=== PATIENT | male | born 1945 | race Two or more races ===

== ENCOUNTER 2021-03-10 00:15 | Inpatient (IN) | payer OTHER ==
[~2021-03-10] VITALS: Ht 180.3 cm; Wt 110.5 kg
[2021-03-10 01:58] LABS: Eosinophils # (auto) 0 10 ^3/uL (0-0.8); Lymphocytes # (auto) 1.2 10 ^3/uL (0.4-5.4)
[2021-03-10 02:00] LABS: Basophils # (auto) 0.1 10 ^3/uL (0-0.2); Basophils % (auto) 0.6 % (0.0-2.0); Eosinophils % (auto) 0.4 % (0.0-7.0); Hemoglobin 19.8 g/dL (13.5-17.5); Mean Corpuscular Hemoglobin 31.2 pg (28.0-32.0); Mean Corpuscular Volume 89.1 fL (80.0-100.0); Monocytes # (auto) 0.9 10 ^3/uL (0-1.3); Monocytes % (auto) 10.3 % (0.0-12.0); Neutrophils # (auto) 6.5 10 ^3/uL (1.6-8.6); Neutrophils % (auto) 74.7 % (37.0-80.0); Nucleated Red Blood Cells % 0.5 %; Red Blood Cells 6.33 10^6/uL (4.5-5.90); Red Cell Distribution Width 13.8 % (11.8-14.3); White Blood Cell 8.7 10^3/uL (4.4-10.8)
[2021-03-10 02:01] LABS: Hematocrit 56.5 % (41.0-53.0)
[2021-03-10 02:20] LABS: Urine Bacteria NONE SEEN /hpf (None Seen); Urine Blood 3+ /uL (Negative); Urine Specific Gravity 1.017 (1.001-1.035); Urine WBC 157 /hpf (0 - 3)
[2021-03-10 02:25] LABS: Albumin 3.9 g/dL (3.4-5.0); BUN/Creatinine Ratio 15.2; Calcium 9.1 mg/dL (8.5-10.1); Potassium 4.6 mmol/L (3.5-5.1)
[2021-03-10 02:27] LABS: Bilirubin, Total 1.2 mg/dL (0.2-1.0); Lactic Acid w/Reflex 3.4 mmol/L (0.4-2.0); Total Protein 7.8 g/dL (6.4-8.2)
[2021-03-10] MEDS ORDERED: SODIUM CHLORIDE 0.9% 3,400 ML IV ONE (03:45)
[2021-03-10] MEDS ORDERED: cefTRIAXone 1GM/50ML D5W 50 ML IV ONE (03:45)
[2021-03-10] MEDS ORDERED: ONDANSETRON HCL 4 MG/2 ML VIAL IV PRN (05:30)
[2021-03-10] MEDS ORDERED: LABETALOL HCL 5 MG/ML 4ML SYRINGE IV ONE (06:15)
[2021-03-10] MEDS: glipiZIDE 5 MG TAB PO SCH (07:08)
[2021-03-10] MEDS: metFORMIN HYDROCHLORIDE 500 MG TAB PO SCH ×2 (08:26→18:10)
[2021-03-10] MEDS: METOPROLOL TARTRATE 50 MG TAB PO SCH ×2 (09:44→21:41)
[2021-03-10] MEDS: PANTOPRAZOLE 40 MG TAB PO SCH (09:44)
[2021-03-10] MEDS: amLODIPine BESYLATE 5 MG TAB PO SCH (09:44)
[2021-03-10] MEDS: ENOXAPARIN SOD 40 MG/0.4 ML SYRINGE SC SCH (09:45)
[2021-03-10 13:00] VITALS: BP 159/100
[2021-03-10 13:01] VITALS: BP 159/96
[2021-03-10] MEDS ORDERED: METF-370 PO (14:16)
[2021-03-10] MEDS ORDERED: LOSA-39 PO (14:16)
[2021-03-10] MEDS ORDERED: CHOL20007 PO (14:16)
[2021-03-10] MEDS ORDERED: APIX5TAB PO (14:16)
[2021-03-10] MEDS ORDERED: FINA5TAB4 PO (14:16)
[2021-03-10] MEDS ORDERED: METO-158 PO (14:16)
[2021-03-10] MEDS ORDERED: ESCI-28 PO (14:16)
[2021-03-10] MEDS ORDERED: AMLO-489 PO (14:16)
[2021-03-10] MEDS ORDERED: ASPI-543 PO (14:16)
[2021-03-10 17:13] VITALS: BP 150/96
[2021-03-10] MEDS: cefTRIAXone 1GM/50ML D5W 50 ML IV SCH (21:40)
[2021-03-10] MEDS: ACETAMINOPHEN 325 MG TAB PO PRN (21:40)
[2021-03-10] MEDS: ATORVASTATIN 20 MG TAB PO SCH (21:40)
[2021-03-10 22:34] VITALS: BP 163/112
[2021-03-11 05:00] VITALS: BP 158/107
[2021-03-11] MEDS ORDERED: VANCOMYCIN PER PHARMACY 0 MG IV SCH (05:45)
[2021-03-11] MEDS ORDERED: VANCOMYCIN 1,500 MG in D5W 5% 250 ML IV ONE (05:45)
[2021-03-11 06:43] LABS: Basophils # (auto) 0.1 10 ^3/uL (0-0.2); Basophils % (auto) 0.4 % (0.0-2.0); Eosinophils # (auto) 0 10 ^3/uL (0-0.8); Eosinophils % (auto) 0.1 % (0.0-7.0); Hematocrit 51.6 % (41.0-53.0); Hemoglobin 17.5 g/dL (13.5-17.5); Lymphocytes # (auto) 1.4 10 ^3/uL (0.4-5.4); Lymphocytes % (auto) 11.2 % (10.0-50.0); Mean Corpuscular Hemoglobin 30.1 pg (28.0-32.0); Mean Corpuscular Volume 88.6 fL (80.0-100.0); Monocytes # (auto) 1.4 10 ^3/uL (0-1.3); Monocytes % (auto) 11.3 % (0.0-12.0); Neutrophils # (auto) 9.7 10 ^3/uL (1.6-8.6); Nucleated Red Blood Cells % 0.1 %; Red Blood Cells 5.82 10^6/uL (4.5-5.90); White Blood Cell 12.6 10^3/uL (4.4-10.8)
[2021-03-11] MEDS: glipiZIDE 5 MG TAB PO SCH (06:48)
[2021-03-11 07:10] LABS: Calcium 8.5 mg/dL (8.5-10.1); Potassium 3.5 mmol/L (3.5-5.1)
[2021-03-11 07:18] LABS: BUN/Creatinine Ratio 14.7
[2021-03-11] MEDS: ENOXAPARIN SOD 40 MG/0.4 ML SYRINGE SC SCH (07:53)
[2021-03-11] MEDS: METOPROLOL TARTRATE 50 MG TAB PO SCH (07:53)
[2021-03-11] MEDS: metFORMIN HYDROCHLORIDE 500 MG TAB PO SCH ×2 (07:53→18:24)
[2021-03-11] MEDS: amLODIPine BESYLATE 5 MG TAB PO SCH (07:54)
[2021-03-11] MEDS: PANTOPRAZOLE 40 MG TAB PO SCH (07:54)
[2021-03-11 09:00] VITALS: BP 136/92
[2021-03-11] MEDS: VANCOMYCIN 1GM/250ML 250 ML IV SCH (10:53)
[2021-03-11] MEDS: FINASTERIDE 5 MG TAB PO SCH (12:50)
[2021-03-11 13:00] VITALS: BP 157/106
[2021-03-11] MEDS ORDERED: FLEET ENEMA(ADULT) 135 ML PR ONE (13:15)
[2021-03-11 17:04] VITALS: BP 134/84
[2021-03-11] MEDS ORDERED: cloNIDine HCL 0.1 MG TAB PO PRN (17:45)
[2021-03-11] MEDS ORDERED: cloNIDine HCL 0.1 MG TAB PO SCH (22:00)
[2021-03-11 22:23] VITALS: BP 144/94
[2021-03-11] MEDS: APIXABAN 5 MG TAB PO SCH (23:59)
[2021-03-11] MEDS: cefTRIAXone 1GM/50ML D5W 50 ML IV SCH (23:59)
[2021-03-12] MEDS: METOPROLOL TARTRATE 50 MG TAB PO SCH ×3 (00:01→23:02)
[2021-03-12] MEDS: VANCOMYCIN 1GM/250ML 250 ML IV SCH ×2 (04:23→17:28)
[2021-03-12 05:33] VITALS: BP 140/94
[2021-03-12] MEDS: glipiZIDE 5 MG TAB PO SCH (06:18)
[2021-03-12 09:08] VITALS: BP 130/83
[2021-03-12] MEDS: metFORMIN HYDROCHLORIDE 500 MG TAB PO SCH ×2 (09:18→17:28)
[2021-03-12] MEDS: FINASTERIDE 5 MG TAB PO SCH (09:22)
[2021-03-12] MEDS: amLODIPine BESYLATE 5 MG TAB PO SCH (09:22)
[2021-03-12] MEDS: APIXABAN 5 MG TAB PO SCH ×2 (09:22→23:01)
[2021-03-12 11:07] LABS: Basophils # (auto) 0.1 10 ^3/uL (0-0.2); Basophils % (auto) 0.6 % (0.0-2.0); Eosinophils # (auto) 0.2 10 ^3/uL (0-0.8); Eosinophils % (auto) 2.3 % (0.0-7.0); Hematocrit 47.5 % (41.0-53.0); Hemoglobin 16.1 g/dL (13.5-17.5); Lymphocytes # (auto) 1.3 10 ^3/uL (0.4-5.4); Lymphocytes % (auto) 16.2 % (10.0-50.0); Mean Corpuscular Hemoglobin 30.2 pg (28.0-32.0); Mean Corpuscular Hgb Conc. 33.8 g/dL (32.0-36.0); Mean Corpuscular Volume 89.1 fL (80.0-100.0); Monocytes # (auto) 0.8 10 ^3/uL (0-1.3); Monocytes % (auto) 9.5 % (0.0-12.0); Neutrophils # (auto) 5.9 10 ^3/uL (1.6-8.6); Neutrophils % (auto) 71.4 % (37.0-80.0); Nucleated Red Blood Cells % 0.1 %; Red Blood Cells 5.33 10^6/uL (4.5-5.90); Red Cell Distribution Width 13.8 % (11.8-14.3); White Blood Cell 8.3 10^3/uL (4.4-10.8)
[2021-03-12 13:00] VITALS: BP 115/77
[2021-03-12 17:03] VITALS: BP 139/95
[2021-03-12 21:57] VITALS: BP 138/86
[2021-03-12] MEDS: cefTRIAXone 1GM/50ML D5W 50 ML IV SCH (23:00)
[2021-03-12] MEDS: ATORVASTATIN 20 MG TAB PO SCH ×2 (23:01)
[2021-03-12] MEDS: ACETAMINOPHEN 325 MG TAB PO PRN (23:03)
[2021-03-13 04:54] VITALS: BP 133/84
[2021-03-13] MEDS: glipiZIDE 5 MG TAB PO SCH (06:58)
[2021-03-13 08:39] LABS: Basophils # (auto) 0 10 ^3/uL (0-0.2); Basophils % (auto) 0.8 % (0.0-2.0); Eosinophils # (auto) 0.3 10 ^3/uL (0-0.8); Eosinophils % (auto) 4.8 % (0.0-7.0); Hematocrit 48.2 % (41.0-53.0); Hemoglobin 16.6 g/dL (13.5-17.5); Lymphocytes # (auto) 1.5 10 ^3/uL (0.4-5.4); Mean Corpuscular Hemoglobin 30.3 pg (28.0-32.0); Mean Corpuscular Hgb Conc. 34.3 g/dL (32.0-36.0); Mean Corpuscular Volume 88.2 fL (80.0-100.0); Monocytes # (auto) 0.7 10 ^3/uL (0-1.3); Monocytes % (auto) 10.7 % (0.0-12.0); Neutrophils # (auto) 3.6 10 ^3/uL (1.6-8.6); Neutrophils % (auto) 59.7 % (37.0-80.0); Nucleated Red Blood Cells % 0.1 %; Red Blood Cells 5.47 10^6/uL (4.5-5.90); Red Cell Distribution Width 13.6 % (11.8-14.3); White Blood Cell 6.1 10^3/uL (4.4-10.8)
[2021-03-13] MEDS: amLODIPine BESYLATE 5 MG TAB PO SCH (08:52)
[2021-03-13] MEDS: VANCOMYCIN 1GM/250ML 250 ML IV SCH ×3 (08:53→23:16)
[2021-03-13] MEDS: metFORMIN HYDROCHLORIDE 500 MG TAB PO SCH ×2 (08:53→18:34)
[2021-03-13] MEDS: FINASTERIDE 5 MG TAB PO SCH (08:53)
[2021-03-13] MEDS: APIXABAN 5 MG TAB PO SCH ×2 (08:53→23:14)
[2021-03-13] MEDS: METOPROLOL TARTRATE 50 MG TAB PO SCH ×2 (08:53→23:15)
[2021-03-13 09:00] VITALS: BP 148/97
[2021-03-13] MEDS ORDERED: ERTAPENEM SOD INJ 1 GM in SODIUM CHL 0.9% 50 ML IV ONE (10:30)
[2021-03-13 13:01] VITALS: BP 134/97
[2021-03-13 17:00] VITALS: BP 143/96
[2021-03-13 22:00] VITALS: BP 130/90
[2021-03-13] MEDS: ATORVASTATIN 20 MG TAB PO SCH (23:14)
[2021-03-14 05:00] VITALS: BP 135/87
[2021-03-14] MEDS: glipiZIDE 5 MG TAB PO SCH (06:15)
[2021-03-14 08:00] VITALS: BP 140/84
[2021-03-14] MEDS: ERTAPENEM SOD INJ 1 GM in SODIUM CHL 0.9% 50 ML IV SCH (09:24)
[2021-03-14] MEDS: APIXABAN 5 MG TAB PO SCH ×2 (09:25→22:54)
[2021-03-14] MEDS: amLODIPine BESYLATE 5 MG TAB PO SCH (09:25)
[2021-03-14] MEDS: FINASTERIDE 5 MG TAB PO SCH (09:26)
[2021-03-14] MEDS: metFORMIN HYDROCHLORIDE 500 MG TAB PO SCH ×2 (09:26→17:15)
[2021-03-14] MEDS: METOPROLOL TARTRATE 50 MG TAB PO SCH ×2 (09:26→22:53)
[2021-03-14] MEDS: VANCOMYCIN 1GM/250ML 250 ML IV SCH (12:43)
[2021-03-14 13:00] VITALS: BP 150/98
[2021-03-14 17:00] VITALS: BP 135/94
[2021-03-14] MEDS: TAMSULOSIN HYDROCHLORIDE 0.4 MG CAP PO SCH (17:15)
[2021-03-14 22:00] VITALS: BP 143/93
[2021-03-14] MEDS: ATORVASTATIN 20 MG TAB PO SCH (22:53)
[2021-03-15 05:00] VITALS: BP 143/102
[2021-03-15] MEDS: glipiZIDE 5 MG TAB PO SCH (06:45)
[2021-03-15 09:00] VITALS: BP 132/80
[2021-03-15] MEDS ORDERED: LACTULOSE 20Gm/30ML SOLN PO ONE (12:30)
[2021-03-15] MEDS: metFORMIN HYDROCHLORIDE 500 MG TAB PO SCH ×2 (12:56→17:25)
[2021-03-15] MEDS: APIXABAN 5 MG TAB PO SCH ×2 (12:57→20:45)
[2021-03-15] MEDS: ERTAPENEM SOD INJ 1 GM in SODIUM CHL 0.9% 50 ML IV SCH (12:57)
[2021-03-15] MEDS: METOPROLOL TARTRATE 50 MG TAB PO SCH ×2 (12:58→21:03)
[2021-03-15 13:00] VITALS: BP 125/78
[2021-03-15] MEDS: FINASTERIDE 5 MG TAB PO SCH (16:34)
[2021-03-15] MEDS: amLODIPine BESYLATE 5 MG TAB PO SCH (16:34)
[2021-03-15 16:42] VITALS: BP 135/97
[2021-03-15] MEDS: TAMSULOSIN HYDROCHLORIDE 0.4 MG CAP PO SCH (17:25)
[2021-03-15] MEDS: ATORVASTATIN 20 MG TAB PO SCH (20:46)
[2021-03-15] MEDS: ACETAMINOPHEN 325 MG TAB PO PRN (20:46)
[2021-03-15 22:00] VITALS: BP 142/104
[2021-03-15] MEDS ORDERED: TEMAZEPAM 15 MG CAP PO ONE (22:45)
[2021-03-16 05:00] VITALS: BP 133/85
[2021-03-16] MEDS: glipiZIDE 5 MG TAB PO SCH (06:51)
[2021-03-16 09:00] VITALS: BP 132/87
[2021-03-16] MEDS: metFORMIN HYDROCHLORIDE 500 MG TAB PO SCH ×2 (10:25→18:15)
[2021-03-16] MEDS: ERTAPENEM SOD INJ 1 GM in SODIUM CHL 0.9% 50 ML IV SCH (10:25)
[2021-03-16] MEDS: APIXABAN 5 MG TAB PO SCH ×2 (10:26→21:47)
[2021-03-16] MEDS: METOPROLOL TARTRATE 50 MG TAB PO SCH ×2 (10:26→21:47)
[2021-03-16] MEDS: amLODIPine BESYLATE 5 MG TAB PO SCH (10:27)
[2021-03-16] MEDS: FINASTERIDE 5 MG TAB PO SCH (10:27)
[2021-03-16 13:00] VITALS: BP 124/95
[2021-03-16 17:00] VITALS: BP 122/78
[2021-03-16] MEDS: TAMSULOSIN HYDROCHLORIDE 0.4 MG CAP PO SCH (18:15)
[2021-03-16] MEDS: ATORVASTATIN 20 MG TAB PO SCH (21:47)
[2021-03-16 22:00] VITALS: BP 162/110
[2021-03-16] MEDS: TEMAZEPAM 15 MG CAP PO PRN (22:45)
[2021-03-17 05:00] VITALS: BP 136/94
[2021-03-17] MEDS: glipiZIDE 5 MG TAB PO SCH (06:31)
[2021-03-17] MEDS: metFORMIN HYDROCHLORIDE 500 MG TAB PO SCH ×2 (08:50→18:20)
[2021-03-17 09:00] VITALS: BP 142/94
[2021-03-17] MEDS: METOPROLOL TARTRATE 50 MG TAB PO SCH ×2 (09:57→21:15)
[2021-03-17] MEDS: ERTAPENEM SOD INJ 1 GM in SODIUM CHL 0.9% 50 ML IV SCH (09:57)
[2021-03-17] MEDS: APIXABAN 5 MG TAB PO SCH ×2 (09:57→21:15)
[2021-03-17] MEDS: amLODIPine BESYLATE 5 MG TAB PO SCH (09:58)
[2021-03-17] MEDS: FINASTERIDE 5 MG TAB PO SCH (09:58)
[2021-03-17 13:00] VITALS: BP 112/73
[2021-03-17 17:00] VITALS: BP 119/77
[2021-03-17] MEDS: TAMSULOSIN HYDROCHLORIDE 0.4 MG CAP PO SCH (18:20)
[2021-03-17] MEDS: ATORVASTATIN 20 MG TAB PO SCH (21:15)
[2021-03-17] MEDS: TEMAZEPAM 15 MG CAP PO PRN (21:15)
[2021-03-17 22:00] VITALS: BP 137/93
[2021-03-18 05:00] VITALS: BP 120/85
[2021-03-18] MEDS: glipiZIDE 5 MG TAB PO SCH (06:24)
[2021-03-18] MEDS: amLODIPine BESYLATE 5 MG TAB PO SCH (08:45)
[2021-03-18] MEDS: METOPROLOL TARTRATE 50 MG TAB PO SCH ×2 (08:45→21:19)
[2021-03-18 09:00] VITALS: BP 125/87
[2021-03-18] MEDS: APIXABAN 5 MG TAB PO SCH ×2 (09:14→21:19)
[2021-03-18] MEDS: FINASTERIDE 5 MG TAB PO SCH (09:14)
[2021-03-18] MEDS: metFORMIN HYDROCHLORIDE 500 MG TAB PO SCH ×2 (09:15→18:52)
[2021-03-18] MEDS: ERTAPENEM SOD INJ 1 GM in SODIUM CHL 0.9% 50 ML IV SCH (09:15)
[2021-03-18 12:30] VITALS: BP 135/77
[2021-03-18 16:50] VITALS: BP 134/94
[2021-03-18] MEDS: TAMSULOSIN HYDROCHLORIDE 0.4 MG CAP PO SCH (18:52)
[2021-03-18 20:12] VITALS: BP 150/100
[2021-03-18] MEDS: ATORVASTATIN 20 MG TAB PO SCH (21:19)
[2021-03-18 22:39] VITALS: BP 143/84
[2021-03-19] MEDS: TEMAZEPAM 15 MG CAP PO PRN (01:01)
[2021-03-19] MEDS: glipiZIDE 5 MG TAB PO SCH (06:53)
[2021-03-19] MEDS: BISACODYL 10 MG RECT SUPP PR PRN (06:53)
[2021-03-19 07:04] VITALS: BP 132/90
[2021-03-19] MEDS: metFORMIN HYDROCHLORIDE 500 MG TAB PO SCH ×2 (08:10→17:58)
[2021-03-19 08:50] VITALS: BP 148/104
[2021-03-19] MEDS: ERTAPENEM SOD INJ 1 GM in SODIUM CHL 0.9% 50 ML IV SCH (10:43)
[2021-03-19] MEDS: FINASTERIDE 5 MG TAB PO SCH (10:44)
[2021-03-19] MEDS: amLODIPine BESYLATE 5 MG TAB PO SCH (10:44)
[2021-03-19] MEDS: APIXABAN 5 MG TAB PO SCH ×2 (10:44→22:18)
[2021-03-19] MEDS: METOPROLOL TARTRATE 50 MG TAB PO SCH ×2 (10:45→22:19)
[2021-03-19 12:30] VITALS: BP 149/95
[2021-03-19 16:51] VITALS: BP 151/99
[2021-03-19] MEDS: TAMSULOSIN HYDROCHLORIDE 0.4 MG CAP PO SCH (17:57)
[2021-03-19 22:00] VITALS: BP 117/80
[2021-03-19] MEDS: ATORVASTATIN 20 MG TAB PO SCH (22:18)
[2021-03-20 05:00] VITALS: BP 122/79
[2021-03-20] MEDS: glipiZIDE 5 MG TAB PO SCH (07:00)
[2021-03-20] MEDS: ERTAPENEM SOD INJ 1 GM in SODIUM CHL 0.9% 50 ML IV SCH (08:37)
[2021-03-20] MEDS: metFORMIN HYDROCHLORIDE 500 MG TAB PO SCH ×2 (08:37→17:57)
[2021-03-20] MEDS: FINASTERIDE 5 MG TAB PO SCH (08:38)
[2021-03-20] MEDS: APIXABAN 5 MG TAB PO SCH ×2 (08:38→22:52)
[2021-03-20] MEDS: METOPROLOL TARTRATE 50 MG TAB PO SCH ×2 (08:38→22:52)
[2021-03-20 09:08] VITALS: BP 106/72
[2021-03-20] MEDS: amLODIPine BESYLATE 5 MG TAB PO SCH (10:00)
[2021-03-20 12:30] VITALS: BP 106/74
[2021-03-20 17:29] VITALS: BP 113/84
[2021-03-20] MEDS: TAMSULOSIN HYDROCHLORIDE 0.4 MG CAP PO SCH (17:57)
[2021-03-20 22:00] VITALS: BP 109/70
[2021-03-20] MEDS: ATORVASTATIN 20 MG TAB PO SCH (22:52)
[2021-03-20] MEDS: TEMAZEPAM 15 MG CAP PO PRN (22:59)
[2021-03-21 05:00] VITALS: BP 112/76
[2021-03-21] MEDS: glipiZIDE 5 MG TAB PO SCH (07:29)
[2021-03-21 09:00] VITALS: BP 117/74
[2021-03-21] MEDS: metFORMIN HYDROCHLORIDE 500 MG TAB PO SCH ×2 (09:15→16:42)
[2021-03-21] MEDS: APIXABAN 5 MG TAB PO SCH ×2 (09:16→23:18)
[2021-03-21] MEDS: ERTAPENEM SOD INJ 1 GM in SODIUM CHL 0.9% 50 ML IV SCH (09:16)
[2021-03-21] MEDS: METOPROLOL TARTRATE 50 MG TAB PO SCH ×3 (09:17→23:18)
[2021-03-21] MEDS: amLODIPine BESYLATE 5 MG TAB PO SCH (09:17)
[2021-03-21] MEDS: FINASTERIDE 5 MG TAB PO SCH (09:18)
[2021-03-21] MEDS: TAMSULOSIN HYDROCHLORIDE 0.4 MG CAP PO SCH (09:19)
[2021-03-21 13:00] VITALS: BP 136/88
[2021-03-21 17:00] VITALS: BP 113/85
[2021-03-21 22:30] VITALS: BP 128/77
[2021-03-21] MEDS: ATORVASTATIN 20 MG TAB PO SCH (23:18)
[2021-03-21] MEDS: TEMAZEPAM 15 MG CAP PO PRN (23:19)
[2021-03-22 05:00] VITALS: BP 142/93
[2021-03-22] MEDS: glipiZIDE 5 MG TAB PO SCH (07:01)
[2021-03-22 08:00] VITALS: BP 137/82
[2021-03-22] MEDS: ERTAPENEM SOD INJ 1 GM in SODIUM CHL 0.9% 50 ML IV SCH (08:40)
[2021-03-22] MEDS: APIXABAN 5 MG TAB PO SCH ×2 (08:40→21:21)
[2021-03-22] MEDS: metFORMIN HYDROCHLORIDE 500 MG TAB PO SCH ×2 (08:40→16:58)
[2021-03-22] MEDS: METOPROLOL TARTRATE 50 MG TAB PO SCH ×2 (08:41→21:22)
[2021-03-22] MEDS: amLODIPine BESYLATE 5 MG TAB PO SCH (08:41)
[2021-03-22] MEDS: FINASTERIDE 5 MG TAB PO SCH (08:42)
[2021-03-22 13:30] VITALS: BP 138/90
[2021-03-22] MEDS: TAMSULOSIN HYDROCHLORIDE 0.4 MG CAP PO SCH (16:58)
[2021-03-22 16:59] VITALS: BP 136/93
[2021-03-22] MEDS: TEMAZEPAM 15 MG CAP PO PRN (21:20)
[2021-03-22] MEDS: ATORVASTATIN 20 MG TAB PO SCH (21:21)
[2021-03-22 22:00] VITALS: BP 138/90
[2021-03-23 05:22] VITALS: BP 104/73
[2021-03-23] MEDS: glipiZIDE 5 MG TAB PO SCH (06:52)
[2021-03-23] MEDS: metFORMIN HYDROCHLORIDE 500 MG TAB PO SCH ×2 (09:29→17:35)
[2021-03-23 09:30] VITALS: BP 141/85
[2021-03-23] MEDS: ERTAPENEM SOD INJ 1 GM in SODIUM CHL 0.9% 50 ML IV SCH (09:30)
[2021-03-23] MEDS: METOPROLOL TARTRATE 50 MG TAB PO SCH ×2 (09:31→21:46)
[2021-03-23] MEDS: APIXABAN 5 MG TAB PO SCH ×2 (09:31→21:45)
[2021-03-23] MEDS: amLODIPine BESYLATE 5 MG TAB PO SCH (09:32)
[2021-03-23] MEDS: FINASTERIDE 5 MG TAB PO SCH (09:32)
[2021-03-23 13:00] VITALS: BP 142/84
[2021-03-23 16:38] VITALS: BP 144/86
[2021-03-23] MEDS: TAMSULOSIN HYDROCHLORIDE 0.4 MG CAP PO SCH (17:35)
[2021-03-23] MEDS: ATORVASTATIN 20 MG TAB PO SCH (21:45)
[2021-03-23] MEDS: TEMAZEPAM 15 MG CAP PO PRN (21:46)
[2021-03-23 22:00] VITALS: BP 142/77
[2021-03-24 05:00] VITALS: BP 128/87
[2021-03-24] MEDS: glipiZIDE 5 MG TAB PO SCH (06:54)
[2021-03-24 08:00] VITALS: BP 122/94
[2021-03-24] MEDS: metFORMIN HYDROCHLORIDE 500 MG TAB PO SCH ×2 (09:12→18:02)
[2021-03-24] MEDS: APIXABAN 5 MG TAB PO SCH (09:51)
[2021-03-24] MEDS: ERTAPENEM SOD INJ 1 GM in SODIUM CHL 0.9% 50 ML IV SCH (09:51)
[2021-03-24] MEDS: METOPROLOL TARTRATE 50 MG TAB PO SCH (09:51)
[2021-03-24] MEDS: FINASTERIDE 5 MG TAB PO SCH (09:52)
[2021-03-24] MEDS: amLODIPine BESYLATE 5 MG TAB PO SCH (09:52)
[2021-03-24 12:00] VITALS: BP 143/97
[2021-03-24 16:25] VITALS: BP 136/93
[2021-03-24] MEDS: TAMSULOSIN HYDROCHLORIDE 0.4 MG CAP PO SCH (18:01)
[2021-03-24] MEDS: BISACODYL 10 MG RECT SUPP PR PRN (18:02)
== END 2021-03-24 19:12 | DRG 871 ==
LOC: EDBD 00:15 → ER 00:15 → OVERFLOW 05:26 → WEST WING 11:52
PROVIDERS: ADMIT Nurse Practitioner; ATTEND Family Medicine
PROC: 05HB33Z Insertion of Infusion Device into Right Basilic Vein, Percutaneous Approach (ICD-10-PCS; principal; 2021-03-15)
PROC: B54MZZA Ultrasonography of Right Upper Extremity Veins, Guidance (ICD-10-PCS; 2021-03-15)
DX: A41.9 Sepsis, unspecified organism (principal); G93.41 Metabolic encephalopathy; N17.9 Acute kidney failure, unspecified; N13.8 Other obstructive and reflux uropathy; D68.59 Other primary thrombophilia; N13.6 Pyonephrosis; I10 Essential (primary) hypertension; D75.1 Secondary polycythemia; Z20.822 Contact with and (suspected) exposure to COVID-19; K80.20 Calculus of gallbladder without cholecystitis without obstruction; N40.1 Benign prostatic hyperplasia with lower urinary tract symptoms; E11.9 Type 2 diabetes mellitus without complications; E78.5 Hyperlipidemia, unspecified; E78.00 Pure hypercholesterolemia, unspecified; N28.89 Other specified disorders of kidney and ureter; Z86.711 Personal history of pulmonary embolism; Z79.01 Long term (current) use of anticoagulants; Z86.718 Personal history of other venous thrombosis and embolism; Z87.440 Personal history of urinary (tract) infections; Z90.79 Acquired absence of other genital organ(s); Z79.899 Other long term (current) drug therapy; T83.021A Displacement of indwelling urethral catheter, initial encounter
CPT/HCPCS: 36415; 71045; 74176; 80048; 80053; 80202; 81001; 82565; 82962; 83605; 83880; 84154; 84484; 85025; 87040; 87077; 87086; 87088; 87186; 87426; 93005; 93306; 93970; 96365; 96372; 96375; 97110; 97116; 97162; 97530; G0378; J0696; J1335; J3490; J7060

== ENCOUNTER 2021-06-26 16:04 | Inpatient (IN) | payer OTHER ==
[~2021-06-26] VITALS: Ht 180.3 cm; Wt 104.7 kg
[~2021-06-26 16:04] MED LIST: AMLO-489 PO; APIX5TAB PO; ASPI-543 PO; CHOL20007 PO; ESCI-28 PO; FINA5TAB4 PO; LOSA-39 PO; METF-370 PO; METO-158 PO
[2021-06-26] MEDS ORDERED: SODIUM CHLORIDE 0.9% 1,000 ML IV ONE ×2 (16:30→17:30)
[2021-06-26] MEDS ORDERED: SODIUM CHLORIDE 0.9% 1,000 ML IVB ONE (16:30)
[2021-06-26] MEDS ORDERED: cefTRIAXone 1GM/50ML D5W 50 ML IV ONE (16:45)
[2021-06-26] MEDS ORDERED: ACETAMINOPHEN 325 MG TAB PO ONE (17:30)
[2021-06-26 17:40] LABS: Albumin 2.7 g/dL (3.4-5.0); BUN/Creatinine Ratio 22.5; Calcium 9.2 mg/dL (8.5-10.1); Potassium 3.6 mmol/L (3.5-5.1)
[2021-06-26 17:41] LABS: Basophils # (auto) 0 10 ^3/uL (0-0.2); Basophils % (auto) 0.2 % (0.0-2.0); Eosinophils # (auto) 0 10 ^3/uL (0-0.8); Hematocrit 47.4 % (41.0-53.0); Hemoglobin 15.9 g/dL (13.5-17.5); Lymphocytes # (auto) 1.2 10 ^3/uL (0.4-5.4); Mean Corpuscular Hgb Conc. 33.6 g/dL (32.0-36.0); Mean Corpuscular Volume 86.3 fL (80.0-100.0); Monocytes # (auto) 1.3 10 ^3/uL (0-1.3); Monocytes % (auto) 8.2 % (0.0-12.0); Neutrophils # (auto) 12.8 10 ^3/uL (1.6-8.6); Neutrophils % (auto) 83.6 % (37.0-80.0); Nucleated Red Blood Cells % 0.2 %; Red Blood Cells 5.49 10^6/uL (4.5-5.90); Red Cell Distribution Width 16.5 % (11.8-14.3); White Blood Cell 15.3 10^3/uL (4.4-10.8)
[2021-06-26 17:42] LABS: Bilirubin, Total 1.3 mg/dL (0.2-1.0); Total Protein 6.7 g/dL (6.4-8.2)
[2021-06-26 17:53] LABS: Urine Bacteria MOD /hpf (None Seen); Urine Blood TRACE /uL (Negative); Urine Budding Yeast MODERATE /hpf (None Seen); Urine Mucus FEW (None Seen); Urine Specific Gravity 1.029 (1.001-1.035); Urine WBC 113 /hpf (0 - 3)
[2021-06-26 17:58] LABS: INR 1.21 (0.9-1.15); Partial Thromboplastin Time 32.9 sec (23.6-33.0)
[2021-06-26] MEDS ORDERED: IOHEXOL 350 MG/ML 100ML IJ ONE (18:17)
[2021-06-26] MEDS ORDERED: dilTIAZem 125mg/125ml BAG KIT 125 ML IV SCH (20:30)
[2021-06-26] MEDS ORDERED: ALBUTEROL SULF 2.5 MG/0.5ML(0.5%) NEB SOLN NEB PRN (20:30)
[2021-06-26] MEDS ORDERED: DEXTROSE (50%) 50ML SYRG IV PRN (20:30)
[2021-06-26] MEDS ORDERED: dilTIAZem 25 MG/5 ML VIAL IV ONE (20:30)
[2021-06-26] MEDS ORDERED: SODIUM CHLORIDE 0.9% 250 ML IV ONE ×2 (20:45→21:00)
[2021-06-26] MEDS ORDERED: ACETAMINOPHEN 325 MG TAB PO PRN (20:45)
[2021-06-26] MEDS ORDERED: ONDANSETRON HCL 4 MG/2 ML VIAL IV PRN (20:45)
[2021-06-26] MEDS: dilTIAZem 125mg/125ml BAG KIT 100 ML IV SCH (20:56)
[2021-06-26 22:14] VITALS: BP 121/78
[2021-06-26] MEDS: InsuLIN REG 1unit/0.01ml Soln (100units/ml) SC SCH (22:43)
[2021-06-26] MEDS: ACCU-CHEK COMFORT CURVE STRIP VI SCH (22:43)
[2021-06-26] MEDS: APIXABAN 5 MG TAB PO SCH (22:53)
[2021-06-26] MEDS: METOPROLOL TARTRATE 50 MG TAB PO SCH (22:53)
[2021-06-27] MEDS: CEFEPIME 1 GM in SODIUM CHL 0.9% 50 ML IV SCH ×3 (00:34→14:14)
[2021-06-27] MEDS: PIPERACILLIN-TAZOB 3.375GM 100 ML IV SCH ×4 (02:03→22:47)
[2021-06-27] MEDS ORDERED: FLUCONAZOLE 200MG/100ML 100 ML IV ONE (02:30)
[2021-06-27 06:51] LABS: Basophils # (auto) 0.1 10 ^3/uL (0-0.2); Basophils % (auto) 0.4 % (0.0-2.0); Eosinophils # (auto) 0 10 ^3/uL (0-0.8); Hematocrit 43.2 % (41.0-53.0); Hemoglobin 14.5 g/dL (13.5-17.5); Lymphocytes # (auto) 1.4 10 ^3/uL (0.4-5.4); Lymphocytes % (auto) 8.1 % (10.0-50.0); Mean Corpuscular Hgb Conc. 33.5 g/dL (32.0-36.0); Mean Corpuscular Volume 86.4 fL (80.0-100.0); Monocytes # (auto) 1.3 10 ^3/uL (0-1.3); Monocytes % (auto) 7.4 % (0.0-12.0); Neutrophils # (auto) 14.2 10 ^3/uL (1.6-8.6); Neutrophils % (auto) 84.1 % (37.0-80.0); Red Blood Cells 4.99 10^6/uL (4.5-5.90); White Blood Cell 16.9 10^3/uL (4.4-10.8)
[2021-06-27] MEDS ORDERED: SODIUM CHLORIDE 0.9% 250 ML IV ONE (07:00)
[2021-06-27 07:09] LABS: Albumin 2.2 g/dL (3.4-5.0); BUN/Creatinine Ratio 22.7; Calcium 8.7 mg/dL (8.5-10.1); Potassium 3.7 mmol/L (3.5-5.1)
[2021-06-27 07:14] LABS: Bilirubin, Total 1.5 mg/dL (0.2-1.0)
[2021-06-27] MEDS: ACCU-CHEK COMFORT CURVE STRIP VI SCH ×4 (07:33→22:47)
[2021-06-27] MEDS: InsuLIN REG 1unit/0.01ml Soln (100units/ml) SC SCH ×4 (07:33→22:00)
[2021-06-27] MEDS: FAMOTIDINE 20 MG TAB PO SCH (09:15)
[2021-06-27] MEDS: FLUCONAZOLE 100 MG TAB PO SCH (09:15)
[2021-06-27] MEDS: METOPROLOL TARTRATE 50 MG TAB PO SCH ×2 (09:15→22:00)
[2021-06-27] MEDS: APIXABAN 5 MG TAB PO SCH (09:15)
[2021-06-27] MEDS: ASPirin-EC 81 mg tab PO SCH (09:15)
[2021-06-27] MEDS: MORPHINE SULFATE 4 MG/ML SYR/VIAL IV PRN ×2 (11:10→17:09)
[2021-06-27] MEDS ORDERED: FUROSEMIDE 20 MG/2 ML VIAL IV ONE (11:45)
[2021-06-27] MEDS ORDERED: AMIODARONE HCL 200 MG TAB PO ONE (11:45)
[2021-06-27] MEDS: dilTIAZem 125mg/125ml BAG KIT 100 ML IV SCH (16:45)
[2021-06-27] MEDS ORDERED: DIGOXIN (250MCG/ML) 2 ML AMPULE IV ONE (17:15)
[2021-06-27] MEDS: FUROSEMIDE 20 MG/2 ML VIAL IV SCH (18:00)
[2021-06-27] MEDS: DIGOXIN (250MCG/ML) 2 ML AMPULE IV SCH (18:15)
[2021-06-27 22:00] VITALS: BP 110/68
[2021-06-27] MEDS: AMIODARONE HCL 200 MG TAB PO SCH (22:00)
[2021-06-28] MEDS: DIGOXIN (250MCG/ML) 2 ML AMPULE IV SCH ×2 (00:52→06:42)
[2021-06-28 04:00] VITALS: BP 110/73
[2021-06-28] MEDS: PIPERACILLIN-TAZOB 3.375GM 100 ML IV SCH ×3 (06:41→22:21)
[2021-06-28] MEDS: FUROSEMIDE 20 MG/2 ML VIAL IV SCH ×2 (06:41→18:41)
[2021-06-28 06:42] LABS: Basophils # (auto) 0.1 10 ^3/uL (0-0.2); Basophils % (auto) 0.4 % (0.0-2.0); Eosinophils # (auto) 0 10 ^3/uL (0-0.8); Eosinophils % (auto) 0.1 % (0.0-7.0); Hematocrit 39.5 % (41.0-53.0); Hemoglobin 13.4 g/dL (13.5-17.5); Lymphocytes # (auto) 1.2 10 ^3/uL (0.4-5.4); Lymphocytes % (auto) 8.4 % (10.0-50.0); Mean Corpuscular Hemoglobin 29.3 pg (28.0-32.0); Mean Corpuscular Hgb Conc. 33.8 g/dL (32.0-36.0); Mean Corpuscular Volume 86.8 fL (80.0-100.0); Monocytes # (auto) 1.1 10 ^3/uL (0-1.3); Monocytes % (auto) 7.3 % (0.0-12.0); Neutrophils # (auto) 12.3 10 ^3/uL (1.6-8.6); Neutrophils % (auto) 83.8 % (37.0-80.0); Red Blood Cells 4.55 10^6/uL (4.5-5.90); White Blood Cell 14.7 10^3/uL (4.4-10.8)
[2021-06-28] MEDS: ACCU-CHEK COMFORT CURVE STRIP VI SCH ×4 (06:42→22:22)
[2021-06-28] MEDS: InsuLIN REG 1unit/0.01ml Soln (100units/ml) SC SCH ×4 (06:42→22:21)
[2021-06-28 07:16] LABS: Potassium 3.5 mmol/L (3.5-5.1)
[2021-06-28 07:27] LABS: BUN/Creatinine Ratio 27.7; Bilirubin, Total 1.1 mg/dL (0.2-1.0); Total Protein 6.1 g/dL (6.4-8.2)
[2021-06-28 08:56] VITALS: BP 116/68
[2021-06-28] MEDS ORDERED: GLIP5TAB12 PO (09:59)
[2021-06-28] MEDS ORDERED: COEN100C15 PO ×2 (09:59)
[2021-06-28] MEDS ORDERED: VITA180C PO (09:59)
[2021-06-28] MEDS ORDERED: AMLO-496 PO (09:59)
[2021-06-28] MEDS ORDERED: DULA0.5I SC (09:59)
[2021-06-28] MEDS ORDERED: LATA0.0019 EACHEYE (09:59)
[2021-06-28] MEDS ORDERED: CHOL500021 OR (09:59)
[2021-06-28] MEDS ORDERED: ATOR20TA50 PO (09:59)
[2021-06-28] MEDS ORDERED: CANA100T PO (09:59)
[2021-06-28] MEDS ORDERED: ENOXAPARIN SOD 40 MG/0.4 ML SYRINGE SC SCH (10:00)
[2021-06-28] MEDS: AMIODARONE HCL 200 MG TAB PO SCH ×2 (10:28→22:21)
[2021-06-28] MEDS: FLUCONAZOLE 100 MG TAB PO SCH (10:29)
[2021-06-28] MEDS: FAMOTIDINE 20 MG TAB PO SCH (10:29)
[2021-06-28] MEDS: METOPROLOL TARTRATE 50 MG TAB PO SCH ×2 (10:29→22:22)
[2021-06-28] MEDS: ASPirin-EC 81 mg tab PO SCH (10:29)
[2021-06-28] MEDS ORDERED: DIGOXIN (250MCG/ML) 2 ML AMPULE IV ONE (11:15)
[2021-06-28] MEDS ORDERED: POTASSIUM CHL 20 Meq TABLET PO ONE (11:15)
[2021-06-28 13:00] VITALS: BP 120/68
[2021-06-28] MEDS ORDERED: DIGOXIN 0.125 MG TAB PO SCH (15:00)
[2021-06-28 17:00] VITALS: BP 109/73
[2021-06-28] MEDS: D5W/SOD CHL 0.45%/KCL 20MEQ 1,000 ML IV SCH (18:40)
[2021-06-28 22:00] VITALS: BP 106/52
[2021-06-29] VITALS (49 sets, daily range): BP systolic 106–249; BP diastolic 53–235
[2021-06-29] MEDS: D5W/SOD CHL 0.45%/KCL 20MEQ 1,000 ML IV SCH (05:05)
[2021-06-29] MEDS: FUROSEMIDE 20 MG/2 ML VIAL IV SCH (06:01)
[2021-06-29] MEDS: ACCU-CHEK COMFORT CURVE STRIP VI SCH ×2 (06:02→17:34)
[2021-06-29] MEDS: InsuLIN REG 1unit/0.01ml Soln (100units/ml) SC SCH ×2 (06:11→17:33)
[2021-06-29] MEDS: PIPERACILLIN-TAZOB 3.375GM 100 ML IV SCH ×3 (06:12→23:11)
[2021-06-29 06:51] LABS: Basophils # (auto) 0 10 ^3/uL (0-0.2); Basophils % (auto) 0.3 % (0.0-2.0); Eosinophils # (auto) 0.1 10 ^3/uL (0-0.8); Eosinophils % (auto) 0.4 % (0.0-7.0); Hematocrit 41.1 % (41.0-53.0); Hemoglobin 13.7 g/dL (13.5-17.5); Lymphocytes # (auto) 0.9 10 ^3/uL (0.4-5.4); Lymphocytes % (auto) 6.9 % (10.0-50.0); Mean Corpuscular Hemoglobin 28.9 pg (28.0-32.0); Mean Corpuscular Hgb Conc. 33.2 g/dL (32.0-36.0); Mean Corpuscular Volume 86.8 fL (80.0-100.0); Monocytes % (auto) 7.7 % (0.0-12.0); Neutrophils # (auto) 11.5 10 ^3/uL (1.6-8.6); Neutrophils % (auto) 84.7 % (37.0-80.0); Red Blood Cells 4.74 10^6/uL (4.5-5.90); Red Cell Distribution Width 16.8 % (11.8-14.3); White Blood Cell 13.6 10^3/uL (4.4-10.8)
[2021-06-29 07:05] LABS: Potassium 3.3 mmol/L (3.5-5.1)
[2021-06-29 07:20] LABS: BUN/Creatinine Ratio 24.5; Calcium 9.2 mg/dL (8.5-10.1); Total Protein 6.6 g/dL (6.4-8.2)
[2021-06-29 07:23] LABS: INR 1.16 (0.9-1.15)
[2021-06-29] MEDS ORDERED: BUPIVACAINE W/ EPINEPH 0.25% INJ 50ML MDV ONE (09:16)
[2021-06-29] MEDS ORDERED: SUCCINYLCHOLINE CHLORIDE 20 MG/ML 10ML VIAL IV ONE (09:44)
[2021-06-29] MEDS ORDERED: POTASSIUM CHL 20 Meq TABLET PO ONE (09:45)
[2021-06-29] MEDS ORDERED: MIDAZOLAM HCL 2MG/2ML 2ml VIAL (1mg/ml) ONE ×3 (09:48→11:06)
[2021-06-29] MEDS ORDERED: HYDROmorphone HCL 2 MG/ML VL ONE ×2 (09:48→11:06)
[2021-06-29] MEDS ORDERED: ROCURONIUM 10MG/ML 10ML VIAL IV ONE (09:48)
[2021-06-29] MEDS ORDERED: fentaNYL CITRATE 100 MCG/2 ML VL ONE ×3 (09:48→11:34)
[2021-06-29] MEDS ORDERED: SODIUM CHLORIDE LOCK 10 ML ONE (09:51)
[2021-06-29] MEDS ORDERED: ETOMIDATE (2MG/ML) 20ML VIAL IV ONE (09:51)
[2021-06-29] MEDS ORDERED: ONDANSETRON HCL 4 MG/2 ML VIAL ONE (09:51)
[2021-06-29] MEDS: AMIODARONE HCL 200 MG TAB PO SCH (10:00)
[2021-06-29] MEDS ORDERED: DIGOXIN 0.125 MG TAB PO SCH (10:00)
[2021-06-29] MEDS ORDERED: METOPROLOL TARTRATE 1MG/1ML-5ML VIAL IV ONE (10:08)
[2021-06-29] MEDS ORDERED: NOREPINEPHRINE 8 MG/250ML KIT 250 ML IV ONE (11:00)
[2021-06-29] MEDS ORDERED: ALBUMIN 5% 500 ML IV ONE (11:31)
[2021-06-29] MEDS ORDERED: ALBUTEROL SULF 2.5 MG/0.5ML(0.5%) NEB SOLN NEB SCH (11:42)
[2021-06-29] MEDS ORDERED: LORazepam 2MG/ML-1ML VIAL IV PRN (11:45)
[2021-06-29] MEDS ORDERED: MORPHINE SULFATE 4 MG/ML SYR/VIAL IV PRN (12:15)
[2021-06-29] MEDS ORDERED: ACCU-CHEK COMFORT CURVE STRIP VI ONE (12:15)
[2021-06-29] MEDS ORDERED: HYDROmorphone HCL 2 MG/ML VL IV PRN (12:15)
[2021-06-29] MEDS ORDERED: ONDANSETRON HCL 4 MG/2 ML VIAL IV PRN (12:15)
[2021-06-29 14:32] LABS: Basophils # (auto) 0.1 10 ^3/uL (0-0.2); Basophils % (auto) 0.3 % (0.0-2.0); Eosinophils # (auto) 0 10 ^3/uL (0-0.8); Eosinophils % (auto) 0.1 % (0.0-7.0); Hematocrit 41.6 % (41.0-53.0); Hemoglobin 13.7 g/dL (13.5-17.5); Lymphocytes # (auto) 1.2 10 ^3/uL (0.4-5.4); Lymphocytes % (auto) 5.9 % (10.0-50.0); Mean Corpuscular Hemoglobin 28.8 pg (28.0-32.0); Mean Corpuscular Hgb Conc. 32.8 g/dL (32.0-36.0); Mean Corpuscular Volume 87.7 fL (80.0-100.0); Monocytes # (auto) 0.7 10 ^3/uL (0-1.3); Monocytes % (auto) 3.5 % (0.0-12.0); Neutrophils # (auto) 18.4 10 ^3/uL (1.6-8.6); Neutrophils % (auto) 90.2 % (37.0-80.0); Red Blood Cells 4.75 10^6/uL (4.5-5.90); Red Cell Distribution Width 15.8 % (11.8-14.3); White Blood Cell 20.4 10^3/uL (4.4-10.8)
[2021-06-29] MEDS ORDERED: SODIUM CHLORIDE 0.9% 1,000 ML IV SCH (14:45)
[2021-06-29] MEDS ORDERED: DEXTROSE (50%) 50ML SYRG IV PRN (14:45)
[2021-06-29] MEDS: fentaNYL Drip 2500mCg/250mlNS 250 ML IV SCH (14:45)
[2021-06-29] MEDS ORDERED: SODIUM CHLORIDE 0.9% 1,000 ML IV ONE (14:45)
[2021-06-29 14:51] LABS: INR 1.23 (0.9-1.15); Partial Thromboplastin Time 35.9 sec (23.6-33.0)
[2021-06-29] MEDS: NOREPINEPHRINE 8 MG/250ML KIT 250 ML IV SCH (15:36)
[2021-06-29] MEDS: SODIUM BICARBONATE 50ML VIAL 50 ML in SOD CHL 0.45% 1,000 ML IV SCH (16:30)
[2021-06-29] MEDS ORDERED: AMIODARONE 450mg/250ml AE 250 ML IV SCH (16:30)
[2021-06-29] MEDS: MAGNESIUM SULFATE 1GM/100ML 100 ML IV SCH ×2 (16:57→17:15)
[2021-06-29] MEDS: LINEZOLID 600MG/300ML 300 ML IV SCH (21:16)
[2021-06-29] MEDS: SODIUM CHLOR 0.9% PF (SALINE LOCK) 10ML VIAL/SYR IV SCH (21:49)
[2021-06-30] VITALS (62 sets, daily range): BP systolic 92–145; BP diastolic 57–84
[2021-06-30] MEDS: ACCU-CHEK COMFORT CURVE STRIP VI SCH ×4 (00:43→18:10)
[2021-06-30] MEDS: InsuLIN REG 1unit/0.01ml Soln (100units/ml) SC SCH ×4 (00:44→18:09)
[2021-06-30] MEDS: AMIODARONE 450mg/250ml AE 250 ML IV SCH ×3 (00:47→20:30)
[2021-06-30] MEDS: SODIUM BICARBONATE 50ML VIAL 50 ML in SOD CHL 0.45% 1,000 ML IV SCH ×2 (03:02→12:01)
[2021-06-30] MEDS ORDERED: SODIUM CHLORIDE 0.9 % NEB SOLN 3ML NEB ONE (05:21)
[2021-06-30 05:23] LABS: Basophils # (auto) 0 10 ^3/uL (0-0.2); Basophils % (auto) 0.5 % (0.0-2.0); Eosinophils # (auto) 0 10 ^3/uL (0-0.8); Hematocrit 36.6 % (41.0-53.0); Hemoglobin 12.5 g/dL (13.5-17.5); Lymphocytes # (auto) 0.9 10 ^3/uL (0.4-5.4); Lymphocytes % (auto) 8.2 % (10.0-50.0); Mean Corpuscular Hgb Conc. 34.1 g/dL (32.0-36.0); Monocytes # (auto) 0.5 10 ^3/uL (0-1.3); Monocytes % (auto) 4.8 % (0.0-12.0); Neutrophils # (auto) 9.5 10 ^3/uL (1.6-8.6); Neutrophils % (auto) 86.5 % (37.0-80.0); Red Cell Distribution Width 15.7 % (11.8-14.3)
[2021-06-30 05:47] LABS: Potassium 3.3 mmol/L (3.5-5.1)
[2021-06-30 05:54] LABS: Albumin 1.9 g/dL (3.4-5.0); BUN/Creatinine Ratio 31.7; Bilirubin, Total 0.9 mg/dL (0.2-1.0); Calcium 8.5 mg/dL (8.5-10.1); Total Protein 5.5 g/dL (6.4-8.2)
[2021-06-30] MEDS: PIPERACILLIN-TAZOB 3.375GM 100 ML IV SCH ×2 (06:54→18:08)
[2021-06-30] MEDS: POTASSIUM CHL 20MEQ/100ML 100 ML IV SCH ×3 (08:01→12:44)
[2021-06-30] MEDS: MIDAZOLAM DRIP 50 mg/50mL 50 ML IV SCH (08:32)
[2021-06-30] MEDS: NOREPINEPHRINE 8 MG/250ML KIT 250 ML IV SCH (08:33)
[2021-06-30] MEDS: FAMOTIDINE (10MG/ML) 2ML VL IV SCH (10:00)
[2021-06-30] MEDS: LINEZOLID 600MG/300ML 300 ML IV SCH ×2 (10:00→21:58)
[2021-06-30] MEDS: SODIUM CHLOR 0.9% PF (SALINE LOCK) 10ML VIAL/SYR IV SCH ×2 (10:00→21:57)
[2021-06-30] MEDS ORDERED: DEXTROSE (50%) 50ML SYRG IV PRN (10:15)
[2021-06-30] MEDS: fentaNYL Drip 2500mCg/250mlNS 250 ML IV SCH (14:45)
[2021-07-01] VITALS (106 sets, daily range): BP systolic 96–190; BP diastolic 54–101
[2021-07-01] MEDS: ACCU-CHEK COMFORT CURVE STRIP VI SCH ×4 (01:11→17:09)
[2021-07-01] MEDS: MIDAZOLAM DRIP 50 mg/50mL 50 ML IV SCH ×2 (01:11→11:45)
[2021-07-01] MEDS: InsuLIN REG 1unit/0.01ml Soln (100units/ml) SC SCH ×4 (01:12→17:08)
[2021-07-01] MEDS: PIPERACILLIN-TAZOB 3.375GM 100 ML IV SCH ×3 (02:09→17:19)
[2021-07-01 05:43] LABS: Basophils # (auto) 0 10 ^3/uL (0-0.2); Basophils % (auto) 0.1 % (0.0-2.0); Eosinophils # (auto) 0 10 ^3/uL (0-0.8); Eosinophils % (auto) 0.1 % (0.0-7.0); Hematocrit 33.2 % (41.0-53.0); Hemoglobin 11.2 g/dL (13.5-17.5); Lymphocytes # (auto) 1.2 10 ^3/uL (0.4-5.4); Lymphocytes % (auto) 14.4 % (10.0-50.0); Mean Corpuscular Hemoglobin 28.7 pg (28.0-32.0); Mean Corpuscular Hgb Conc. 33.8 g/dL (32.0-36.0); Mean Corpuscular Volume 84.9 fL (80.0-100.0); Monocytes # (auto) 0.6 10 ^3/uL (0-1.3); Monocytes % (auto) 6.6 % (0.0-12.0); Neutrophils # (auto) 6.7 10 ^3/uL (1.6-8.6); Neutrophils % (auto) 78.8 % (37.0-80.0); Nucleated Red Blood Cells % 0.1 %; Red Blood Cells 3.91 10^6/uL (4.5-5.90); Red Cell Distribution Width 15.8 % (11.8-14.3); White Blood Cell 8.5 10^3/uL (4.4-10.8)
[2021-07-01] MEDS ORDERED: ALBUTEROL SULF 2.5 MG/0.5ML(0.5%) NEB SOLN NEB PRN (05:45)
[2021-07-01 06:06] LABS: Albumin 1.7 g/dL (3.4-5.0); Calcium 8.3 mg/dL (8.5-10.1); Potassium 3.6 mmol/L (3.5-5.1)
[2021-07-01 06:08] LABS: BUN/Creatinine Ratio 33.3
[2021-07-01 06:11] LABS: Bilirubin, Total 0.4 mg/dL (0.2-1.0)
[2021-07-01] MEDS: AMIODARONE 450mg/250ml AE 250 ML IV SCH ×3 (07:28→21:43)
[2021-07-01] MEDS: SODIUM BICARBONATE 50ML VIAL 50 ML in SOD CHL 0.45% 1,000 ML IV SCH ×2 (07:32→14:15)
[2021-07-01] MEDS: fentaNYL Drip 2500mCg/250mlNS 250 ML IV SCH (08:36)
[2021-07-01] MEDS: SODIUM CHLOR 0.9% PF (SALINE LOCK) 10ML VIAL/SYR IV SCH ×2 (09:02→21:43)
[2021-07-01] MEDS: FAMOTIDINE (10MG/ML) 2ML VL IV SCH (09:02)
[2021-07-01] MEDS: LINEZOLID 600MG/300ML 300 ML IV SCH ×2 (09:02→22:12)
[2021-07-01] MEDS: NOREPINEPHRINE 8 MG/250ML KIT 250 ML IV SCH (14:34)
[2021-07-02] VITALS (100 sets, daily range): BP systolic 88–177; BP diastolic 48–102
[2021-07-02] MEDS: InsuLIN REG 1unit/0.01ml Soln (100units/ml) SC SCH ×4 (00:28→17:19)
[2021-07-02] MEDS: ACCU-CHEK COMFORT CURVE STRIP VI SCH ×4 (00:30→17:19)
[2021-07-02] MEDS: SODIUM BICARBONATE 50ML VIAL 50 ML in SOD CHL 0.45% 1,000 ML IV SCH ×2 (00:31→15:12)
[2021-07-02] MEDS: PIPERACILLIN-TAZOB 3.375GM 100 ML IV SCH ×3 (02:01→17:20)
[2021-07-02 06:39] LABS: BUN/Creatinine Ratio 33.7; Basophils # (auto) 0 10 ^3/uL (0-0.2); Basophils % (auto) 0.4 % (0.0-2.0); Calcium 8.2 mg/dL (8.5-10.1); Eosinophils # (auto) 0 10 ^3/uL (0-0.8); Eosinophils % (auto) 0.7 % (0.0-7.0); Hematocrit 32.1 % (41.0-53.0); Hemoglobin 11.1 g/dL (13.5-17.5); Lymphocytes # (auto) 1.7 10 ^3/uL (0.4-5.4); Lymphocytes % (auto) 25.6 % (10.0-50.0); Mean Corpuscular Hemoglobin 29.3 pg (28.0-32.0); Mean Corpuscular Hgb Conc. 34.5 g/dL (32.0-36.0); Mean Corpuscular Volume 84.8 fL (80.0-100.0); Monocytes # (auto) 0.5 10 ^3/uL (0-1.3); Neutrophils # (auto) 4.5 10 ^3/uL (1.6-8.6); Neutrophils % (auto) 65.3 % (37.0-80.0); Nucleated Red Blood Cells % 0.1 %; Potassium 3.2 mmol/L (3.5-5.1); Red Blood Cells 3.79 10^6/uL (4.5-5.90); White Blood Cell 6.8 10^3/uL (4.4-10.8)
[2021-07-02] MEDS: LINEZOLID 600MG/300ML 300 ML IV SCH ×2 (09:08→21:20)
[2021-07-02] MEDS: FAMOTIDINE (10MG/ML) 2ML VL IV SCH (09:08)
[2021-07-02] MEDS: SODIUM CHLOR 0.9% PF (SALINE LOCK) 10ML VIAL/SYR IV SCH ×2 (09:08→21:19)
[2021-07-02] MEDS ORDERED: POTASSIUM CHL 20 Meq TABLET PO ONE (10:30)
[2021-07-02] MEDS ORDERED: POTASSIUM EFFERVESENT TAB 25 MEQ GT ONE (10:45)
[2021-07-02] MEDS ORDERED: ALBUTEROL SULF 2.5 MG/0.5ML(0.5%) NEB SOLN NEB PRN (11:30)
[2021-07-02] MEDS: AMIODARONE 450mg/250ml AE 250 ML IV SCH (14:06)
[2021-07-02] MEDS: fentaNYL Drip 2500mCg/250mlNS 250 ML IV SCH (14:45)
[2021-07-02] MEDS: NOREPINEPHRINE 8 MG/250ML KIT 250 ML IV SCH (14:45)
[2021-07-02] MEDS: hydrALAZINE HCL 20 MG/ML VL IV PRN (20:52)
[2021-07-02] MEDS: MORPHINE SULFATE 4 MG/ML SYR/VIAL IV PRN (21:34)
[2021-07-02] MEDS: cloNIDine HCL 0.1 MG TAB PO PRN (22:16)
[2021-07-03] VITALS (66 sets, daily range): BP systolic 120–169; BP diastolic 51–94
[2021-07-03] MEDS: InsuLIN REG 1unit/0.01ml Soln (100units/ml) SC SCH ×5 (00:46→23:49)
[2021-07-03] MEDS: ACCU-CHEK COMFORT CURVE STRIP VI SCH ×5 (00:47→23:51)
[2021-07-03] MEDS: PIPERACILLIN-TAZOB 3.375GM 100 ML IV SCH ×3 (02:36→17:04)
[2021-07-03 03:07] LABS: Albumin 1.9 g/dL (3.4-5.0); BUN/Creatinine Ratio 25.4; Magnesium 2.1 mg/dL (1.6-2.6); Potassium 3.3 mmol/L (3.5-5.1)
[2021-07-03 03:10] LABS: Bilirubin, Total 0.4 mg/dL (0.2-1.0)
[2021-07-03] MEDS: SODIUM BICARBONATE 50ML VIAL 50 ML in SOD CHL 0.45% 1,000 ML IV SCH ×2 (03:51→16:36)
[2021-07-03] MEDS: AMIODARONE 450mg/250ml AE 250 ML IV SCH (03:51)
[2021-07-03] MEDS ORDERED: POTASSIUM EFFERVESENT TAB 25 MEQ PO ONE (04:00)
[2021-07-03] MEDS ORDERED: POTASSIUM EFFERVESENT TAB 25 MEQ GT ONE (04:00)
[2021-07-03 05:53] LABS: Basophils # (auto) 0 10 ^3/uL (0-0.2); Basophils % (auto) 0.7 % (0.0-2.0); Eosinophils # (auto) 0.1 10 ^3/uL (0-0.8); Eosinophils % (auto) 1.5 % (0.0-7.0); Hematocrit 34.1 % (41.0-53.0); Hemoglobin 11.6 g/dL (13.5-17.5); Lymphocytes # (auto) 1.7 10 ^3/uL (0.4-5.4); Lymphocytes % (auto) 23.1 % (10.0-50.0); Mean Corpuscular Hemoglobin 28.9 pg (28.0-32.0); Mean Corpuscular Hgb Conc. 34.1 g/dL (32.0-36.0); Mean Corpuscular Volume 84.6 fL (80.0-100.0); Monocytes # (auto) 0.6 10 ^3/uL (0-1.3); Monocytes % (auto) 7.7 % (0.0-12.0); Red Blood Cells 4.04 10^6/uL (4.5-5.90); Red Cell Distribution Width 15.6 % (11.8-14.3); White Blood Cell 7.4 10^3/uL (4.4-10.8)
[2021-07-03] MEDS: FAMOTIDINE (10MG/ML) 2ML VL IV SCH (09:13)
[2021-07-03] MEDS: SODIUM CHLOR 0.9% PF (SALINE LOCK) 10ML VIAL/SYR IV SCH ×2 (09:13→22:18)
[2021-07-03] MEDS: LINEZOLID 600MG/300ML 300 ML IV SCH ×2 (09:13→22:17)
[2021-07-03] MEDS ORDERED: fentaNYL CITRATE 100 MCG/2 ML VL IV ONE (12:00)
[2021-07-03] MEDS: fentaNYL Drip 2500mCg/250mlNS 250 ML IV SCH (14:45)
[2021-07-03] MEDS: MORPHINE SULFATE 4 MG/ML SYR/VIAL IV PRN (17:05)
[2021-07-03] MEDS: METOPROLOL TARTRATE 50 MG TAB PO SCH (22:21)
[2021-07-04] MEDS: PIPERACILLIN-TAZOB 3.375GM 100 ML IV SCH ×3 (01:37→18:01)
[2021-07-04 05:00] VITALS: BP 145/94
[2021-07-04] MEDS: InsuLIN REG 1unit/0.01ml Soln (100units/ml) SC SCH ×4 (05:01→23:11)
[2021-07-04] MEDS: ACCU-CHEK COMFORT CURVE STRIP VI SCH ×4 (05:02→23:12)
[2021-07-04] MEDS: SODIUM BICARBONATE 50ML VIAL 50 ML in SOD CHL 0.45% 1,000 ML IV SCH (05:38)
[2021-07-04 09:00] VITALS: BP 151/84
[2021-07-04] MEDS: LINEZOLID 600MG/300ML 300 ML IV SCH ×2 (09:55→22:13)
[2021-07-04] MEDS: amLODIPine BESYLATE 5 MG TAB PO SCH (09:56)
[2021-07-04] MEDS: METOPROLOL TARTRATE 50 MG TAB PO SCH ×3 (09:57→22:18)
[2021-07-04] MEDS: SODIUM CHLOR 0.9% PF (SALINE LOCK) 10ML VIAL/SYR IV SCH ×2 (09:58→22:13)
[2021-07-04] MEDS: FAMOTIDINE (10MG/ML) 2ML VL IV SCH (09:58)
[2021-07-04] MEDS ORDERED: POTASSIUM CHL 20 Meq TABLET PO ONE (10:00)
[2021-07-04 13:00] VITALS: BP 138/90
[2021-07-04 17:00] VITALS: BP 133/97
[2021-07-04 23:21] VITALS: BP 136/99
[2021-07-05] MEDS: PIPERACILLIN-TAZOB 3.375GM 100 ML IV SCH ×3 (02:00→17:25)
[2021-07-05] MEDS: SODIUM BICARBONATE 50ML VIAL 50 ML in SOD CHL 0.45% 1,000 ML IV SCH ×2 (02:15→17:25)
[2021-07-05] MEDS: hydrALAZINE HCL 20 MG/ML VL IV PRN (03:25)
[2021-07-05 05:00] VITALS: BP 152/104
[2021-07-05 05:51] LABS: Potassium 3.7 mmol/L (3.5-5.1)
[2021-07-05 05:58] LABS: Albumin 2.2 g/dL (3.4-5.0); BUN/Creatinine Ratio 8.9; Bilirubin, Total 0.5 mg/dL (0.2-1.0); Calcium 8.7 mg/dL (8.5-10.1); Total Protein 6.2 g/dL (6.4-8.2)
[2021-07-05 06:00] LABS: Basophils # (auto) 0.1 10 ^3/uL (0-0.2); Lymphocytes # (auto) 2.2 10 ^3/uL (0.4-5.4); Lymphocytes % (auto) 22.7 % (10.0-50.0); Mean Corpuscular Hemoglobin 29.4 pg (28.0-32.0); Monocytes # (auto) 0.6 10 ^3/uL (0-1.3); Nucleated Red Blood Cells % 0.1 %
[2021-07-05] MEDS: ACCU-CHEK COMFORT CURVE STRIP VI SCH ×4 (06:00→22:48)
[2021-07-05] MEDS: InsuLIN REG 1unit/0.01ml Soln (100units/ml) SC SCH ×4 (06:00→22:48)
[2021-07-05 06:02] LABS: Basophils % (auto) 0.7 % (0.0-2.0); Eosinophils # (auto) 0.4 10 ^3/uL (0-0.8); Eosinophils % (auto) 3.9 % (0.0-7.0); Hematocrit 42.4 % (41.0-53.0); Hemoglobin 14.5 g/dL (13.5-17.5); Mean Corpuscular Hgb Conc. 34.2 g/dL (32.0-36.0); Mean Corpuscular Volume 85.8 fL (80.0-100.0); Monocytes % (auto) 6.5 % (0.0-12.0); Neutrophils # (auto) 6.3 10 ^3/uL (1.6-8.6); Neutrophils % (auto) 66.2 % (37.0-80.0); Red Blood Cells 4.94 10^6/uL (4.5-5.90); Red Cell Distribution Width 16.2 % (11.8-14.3); White Blood Cell 9.5 10^3/uL (4.4-10.8)
[2021-07-05 09:54] VITALS: BP 151/85
[2021-07-05] MEDS: FAMOTIDINE (10MG/ML) 2ML VL IV SCH (10:04)
[2021-07-05] MEDS: SODIUM CHLOR 0.9% PF (SALINE LOCK) 10ML VIAL/SYR IV SCH ×2 (10:05→22:00)
[2021-07-05] MEDS: LINEZOLID 600MG/300ML 300 ML IV SCH ×2 (10:05→22:00)
[2021-07-05] MEDS: METOPROLOL TARTRATE 50 MG TAB PO SCH ×2 (10:06→22:00)
[2021-07-05] MEDS: amLODIPine BESYLATE 5 MG TAB PO SCH (10:06)
[2021-07-05 13:16] VITALS: BP 148/74
[2021-07-05 16:00] VITALS: BP 119/81
[2021-07-05 22:00] VITALS: BP 122/96
[2021-07-05 23:42] VITALS: BP 122/96
[2021-07-06] MEDS: PIPERACILLIN-TAZOB 3.375GM 100 ML IV SCH ×3 (02:50→18:11)
[2021-07-06 05:00] VITALS: BP 135/99
[2021-07-06] MEDS: InsuLIN REG 1unit/0.01ml Soln (100units/ml) SC SCH ×3 (06:00→17:46)
[2021-07-06] MEDS: ACCU-CHEK COMFORT CURVE STRIP VI SCH ×4 (06:00→22:13)
[2021-07-06] MEDS: SODIUM BICARBONATE 50ML VIAL 50 ML in SOD CHL 0.45% 1,000 ML IV SCH ×2 (06:15→20:15)
[2021-07-06 06:28] LABS: Basophils # (auto) 0.1 10 ^3/uL (0-0.2); Eosinophils # (auto) 0.3 10 ^3/uL (0-0.8); Hematocrit 42.4 % (41.0-53.0); Hemoglobin 14.1 g/dL (13.5-17.5); Lymphocytes # (auto) 2.1 10 ^3/uL (0.4-5.4); Lymphocytes % (auto) 25.7 % (10.0-50.0); Mean Corpuscular Hemoglobin 28.4 pg (28.0-32.0); Mean Corpuscular Hgb Conc. 33.2 g/dL (32.0-36.0); Mean Corpuscular Volume 85.5 fL (80.0-100.0); Monocytes # (auto) 0.6 10 ^3/uL (0-1.3); Monocytes % (auto) 7.2 % (0.0-12.0); Neutrophils % (auto) 62.1 % (37.0-80.0); Nucleated Red Blood Cells % 0.2 %; Red Blood Cells 4.96 10^6/uL (4.5-5.90); White Blood Cell 8.1 10^3/uL (4.4-10.8)
[2021-07-06 06:47] LABS: Potassium 3.6 mmol/L (3.5-5.1)
[2021-07-06 06:52] LABS: Albumin 2.3 g/dL (3.4-5.0); Bilirubin, Total 0.5 mg/dL (0.2-1.0); Calcium 9.1 mg/dL (8.5-10.1)
[2021-07-06 09:00] VITALS: BP 148/93
[2021-07-06] MEDS: FAMOTIDINE (10MG/ML) 2ML VL IV SCH (10:19)
[2021-07-06] MEDS: amLODIPine BESYLATE 5 MG TAB PO SCH (10:19)
[2021-07-06] MEDS: METOPROLOL TARTRATE 50 MG TAB PO SCH ×2 (10:19→22:18)
[2021-07-06] MEDS: LINEZOLID 600MG/300ML 300 ML IV SCH ×2 (10:20→22:14)
[2021-07-06] MEDS: SODIUM CHLOR 0.9% PF (SALINE LOCK) 10ML VIAL/SYR IV SCH ×2 (10:20→22:14)
[2021-07-06 13:00] VITALS: BP 125/84
[2021-07-06] MEDS: ARTIFICIAL TEARS 15ml EACHEYE PRN (16:33)
[2021-07-06 17:00] VITALS: BP 179/90
[2021-07-06] MEDS: cloNIDine HCL 0.1 MG TAB PO PRN (18:38)
[2021-07-06 22:32] VITALS: BP 138/90
[2021-07-07] MEDS: PIPERACILLIN-TAZOB 3.375GM 100 ML IV SCH ×2 (03:28→09:47)
[2021-07-07 05:00] VITALS: BP 143/92
[2021-07-07] MEDS: InsuLIN REG 1unit/0.01ml Soln (100units/ml) SC SCH ×4 (05:54→17:09)
[2021-07-07] MEDS: ACCU-CHEK COMFORT CURVE STRIP VI SCH ×3 (05:54→17:09)
[2021-07-07 06:13] LABS: Basophils # (auto) 0.1 10 ^3/uL (0-0.2); Basophils % (auto) 0.7 % (0.0-2.0); Eosinophils # (auto) 0.3 10 ^3/uL (0-0.8); Eosinophils % (auto) 4.1 % (0.0-7.0); Hematocrit 37.1 % (41.0-53.0); Hemoglobin 12.8 g/dL (13.5-17.5); Lymphocytes # (auto) 2.1 10 ^3/uL (0.4-5.4); Lymphocytes % (auto) 25.9 % (10.0-50.0); Mean Corpuscular Hemoglobin 28.9 pg (28.0-32.0); Mean Corpuscular Hgb Conc. 34.4 g/dL (32.0-36.0); Mean Corpuscular Volume 84.1 fL (80.0-100.0); Monocytes # (auto) 0.6 10 ^3/uL (0-1.3); Monocytes % (auto) 7.6 % (0.0-12.0); Neutrophils # (auto) 4.9 10 ^3/uL (1.6-8.6); Neutrophils % (auto) 61.7 % (37.0-80.0); Nucleated Red Blood Cells % 0.1 %; Red Blood Cells 4.41 10^6/uL (4.5-5.90); Red Cell Distribution Width 16.2 % (11.8-14.3); White Blood Cell 7.9 10^3/uL (4.4-10.8)
[2021-07-07 06:28] LABS: Potassium 3.5 mmol/L (3.5-5.1)
[2021-07-07 06:35] LABS: Albumin 2.1 g/dL (3.4-5.0); BUN/Creatinine Ratio 9.5; Bilirubin, Total 0.4 mg/dL (0.2-1.0); Calcium 8.4 mg/dL (8.5-10.1); Total Protein 5.4 g/dL (6.4-8.2)
[2021-07-07 08:30] VITALS: BP 148/84
[2021-07-07] MEDS: FAMOTIDINE (10MG/ML) 2ML VL IV SCH (09:22)
[2021-07-07] MEDS: LINEZOLID 600MG/300ML 300 ML IV SCH (09:23)
[2021-07-07] MEDS: SODIUM CHLOR 0.9% PF (SALINE LOCK) 10ML VIAL/SYR IV SCH ×2 (09:23→22:00)
[2021-07-07] MEDS: METOPROLOL TARTRATE 50 MG TAB PO SCH ×2 (09:23→22:33)
[2021-07-07] MEDS: amLODIPine BESYLATE 5 MG TAB PO SCH (09:24)
[2021-07-07] MEDS: cloNIDine HCL 0.1 MG TAB PO PRN (09:24)
[2021-07-07] MEDS: SODIUM BICARBONATE 50ML VIAL 50 ML in SOD CHL 0.45% 1,000 ML IV SCH (10:15)
[2021-07-07] MEDS: ARTIFICIAL TEARS 15ml EACHEYE PRN (12:43)
[2021-07-07 12:58] VITALS: BP 78/38
[2021-07-07 16:53] VITALS: BP 122/70
[2021-07-07 22:00] VITALS: BP 131/80
[2021-07-07] MEDS: LINEZOLID 600MG TABLET PO SCH (22:33)
[2021-07-08 05:00] VITALS: BP 130/91
[2021-07-08] MEDS: ACCU-CHEK COMFORT CURVE STRIP VI SCH ×4 (06:00→18:14)
[2021-07-08] MEDS: InsuLIN REG 1unit/0.01ml Soln (100units/ml) SC SCH ×4 (06:00→18:00)
[2021-07-08 09:00] VITALS: BP 143/91
[2021-07-08] MEDS: SODIUM CHLOR 0.9% PF (SALINE LOCK) 10ML VIAL/SYR IV SCH ×2 (10:00→22:00)
[2021-07-08] MEDS: METOPROLOL TARTRATE 50 MG TAB PO SCH ×3 (10:42→12:48)
[2021-07-08] MEDS: amLODIPine BESYLATE 5 MG TAB PO SCH (10:44)
[2021-07-08] MEDS: LINEZOLID 600MG TABLET PO SCH ×2 (10:44→22:00)
[2021-07-08] MEDS ORDERED: LINE1TAB6 PO (11:43)
[2021-07-08 11:54] VITALS: BP 143/91
[2021-07-08 13:00] VITALS: BP 105/80
[2021-07-08 16:44] VITALS: BP 127/87
[2021-07-08] MEDS: ARTIFICIAL TEARS 15ml EACHEYE PRN (19:40)
[2021-07-08 22:00] VITALS: BP 121/80
[2021-07-09] MEDS: InsuLIN REG 1unit/0.01ml Soln (100units/ml) SC SCH ×5 (00:07→23:55)
[2021-07-09] MEDS: ACCU-CHEK COMFORT CURVE STRIP VI SCH ×5 (00:07→23:56)
[2021-07-09 05:00] VITALS: BP 130/91
[2021-07-09 08:00] VITALS: BP 149/93
[2021-07-09] MEDS: SODIUM CHLOR 0.9% PF (SALINE LOCK) 10ML VIAL/SYR IV SCH ×2 (09:37→22:00)
[2021-07-09] MEDS: amLODIPine BESYLATE 5 MG TAB PO SCH (09:38)
[2021-07-09] MEDS: LINEZOLID 600MG TABLET PO SCH ×2 (09:43→21:52)
[2021-07-09 12:00] VITALS: BP 165/90
[2021-07-09 16:00] VITALS: BP 154/80
[2021-07-09] MEDS: hydrALAZINE HCL 20 MG/ML VL IV PRN (16:38)
[2021-07-09] MEDS: METOPROLOL TARTRATE 50 MG TAB PO SCH (21:53)
[2021-07-09 22:00] VITALS: BP 124/84
[2021-07-10 05:00] VITALS: BP 134/81
[2021-07-10] MEDS: InsuLIN REG 1unit/0.01ml Soln (100units/ml) SC SCH ×3 (06:00→18:00)
[2021-07-10] MEDS: ACCU-CHEK COMFORT CURVE STRIP VI SCH ×3 (06:27→18:00)
[2021-07-10 08:00] VITALS: BP 124/81
[2021-07-10] MEDS: SODIUM CHLOR 0.9% PF (SALINE LOCK) 10ML VIAL/SYR IV SCH ×2 (10:00→22:00)
[2021-07-10] MEDS: amLODIPine BESYLATE 5 MG TAB PO SCH (10:00)
[2021-07-10] MEDS: LINEZOLID 600MG TABLET PO SCH ×2 (10:00→22:40)
[2021-07-10] MEDS: METOPROLOL TARTRATE 50 MG TAB PO SCH ×2 (10:00→22:39)
[2021-07-10 13:00] VITALS: BP 119/80
[2021-07-10 17:36] VITALS: BP 125/82
[2021-07-10 22:00] VITALS: BP 122/80
[2021-07-11 05:00] VITALS: BP 138/93
[2021-07-11] MEDS: InsuLIN REG 1unit/0.01ml Soln (100units/ml) SC SCH ×5 (06:00→23:59)
[2021-07-11] MEDS: ACCU-CHEK COMFORT CURVE STRIP VI SCH ×5 (06:22→23:57)
[2021-07-11 08:40] VITALS: BP 127/79
[2021-07-11] MEDS: SODIUM CHLOR 0.9% PF (SALINE LOCK) 10ML VIAL/SYR IV SCH ×2 (10:00→22:18)
[2021-07-11] MEDS: METOPROLOL TARTRATE 50 MG TAB PO SCH ×2 (10:00→22:18)
[2021-07-11] MEDS: LINEZOLID 600MG TABLET PO SCH ×2 (10:00→22:18)
[2021-07-11] MEDS: amLODIPine BESYLATE 5 MG TAB PO SCH (10:00)
[2021-07-11 13:00] VITALS: BP 105/79
[2021-07-11 17:01] VITALS: BP 117/76
[2021-07-11 22:55] VITALS: BP 122/76
[2021-07-12 05:30] VITALS: BP 114/75
[2021-07-12] MEDS: InsuLIN REG 1unit/0.01ml Soln (100units/ml) SC SCH ×3 (06:00→18:00)
[2021-07-12] MEDS: ACCU-CHEK COMFORT CURVE STRIP VI SCH ×3 (06:01→18:00)
[2021-07-12 08:48] VITALS: BP 137/93
[2021-07-12] MEDS: SODIUM CHLOR 0.9% PF (SALINE LOCK) 10ML VIAL/SYR IV SCH (09:29)
[2021-07-12] MEDS: METOPROLOL TARTRATE 50 MG TAB PO SCH (09:30)
[2021-07-12] MEDS: amLODIPine BESYLATE 5 MG TAB PO SCH (09:31)
[2021-07-12] MEDS: LINEZOLID 600MG TABLET PO SCH (09:31)
[2021-07-12 12:47] VITALS: BP 111/74
[2021-07-12 16:50] VITALS: BP 137/93
[2021-07-12 16:53] VITALS: BP 122/80
== END 2021-07-12 20:30 | DRG 853 ==
LOC: ER 16:04 → EDBD 16:04 → TELE 20:31 → TELE-EAST 06-27 18:17 → DOU IN ICU 06-29 14:05 → TELE-WESTW 07-03 22:50 → WEST WING 07-07 11:47
PROVIDERS: ADMIT Internal Medicine; ATTEND Internal Medicine
PROC: 0FJ44ZZ Inspection of Gallbladder, Percutaneous Endoscopic Approach (ICD-10-PCS; 2021-06-29)
PROC: 5A1945Z Respiratory Ventilation, 24-96 Consecutive Hours (ICD-10-PCS; 2021-06-29)
PROC: 0BH17EZ Insertion of Endotracheal Airway into Trachea, Via Natural or Artificial Opening (ICD-10-PCS; 2021-06-29)
PROC: 30233N1 Transfusion of Nonautologous Red Blood Cells into Peripheral Vein, Percutaneous Approach (ICD-10-PCS; 2021-06-29)
PROC: 02HV33Z Insertion of Infusion Device into Superior Vena Cava, Percutaneous Approach (ICD-10-PCS; 2021-06-29)
PROC: B548ZZA Ultrasonography of Superior Vena Cava, Guidance (ICD-10-PCS; 2021-06-29)
PROC: 0FT40ZZ Resection of Gallbladder, Open Approach (ICD-10-PCS; principal; 2021-06-29 09:54)
DX: A41.9 Sepsis, unspecified organism (principal); J96.01 Acute respiratory failure with hypoxia; G93.41 Metabolic encephalopathy; R65.21 Severe sepsis with septic shock; J98.11 Atelectasis; N39.0 Urinary tract infection, site not specified; D68.69 Other thrombophilia; Z16.21 Resistance to vancomycin; K80.12 Calculus of gallbladder with acute and chronic cholecystitis without obstruction; E66.01 Morbid (severe) obesity due to excess calories; E11.9 Type 2 diabetes mellitus without complications; E78.5 Hyperlipidemia, unspecified; I10 Essential (primary) hypertension; I48.0 Paroxysmal atrial fibrillation; N40.0 Benign prostatic hyperplasia without lower urinary tract symptoms; Z20.822 Contact with and (suspected) exposure to COVID-19; Z77.090 Contact with and (suspected) exposure to asbestos; B96.20 Unspecified Escherichia coli [E. coli] as the cause of diseases classified elsewhere; K66.0 Peritoneal adhesions (postprocedural) (postinfection); B95.2 Enterococcus as the cause of diseases classified elsewhere; D50.0 Iron deficiency anemia secondary to blood loss (chronic); E87.6 Hypokalemia; Z79.84 Long term (current) use of oral hypoglycemic drugs; Z82.49 Family history of ischemic heart disease and other diseases of the circulatory system; Z83.3 Family history of diabetes mellitus; Z79.01 Long term (current) use of anticoagulants; Z86.711 Personal history of pulmonary embolism; Z86.718 Personal history of other venous thrombosis and embolism; Z90.49 Acquired absence of other specified parts of digestive tract; Z68.28 Body mass index [BMI] 28.0-28.9, adult
CPT/HCPCS: 36415; 36569; 36600; 71045; 71275; 74018; 78226; 80048; 80053; 80162; 81001; 82140; 82805; 82962; 83036; 83605; 83690; 83735; 83880; 84132; 84484; 85025; 85610; 85652; 85730; 86141; 86850; 86900; 86901; 86920; 87040; 87070; 87075; 87077; 87081; 87086; 87088; 87186; 87205; 93005; 93970; 94002; 94003; 94640; 96361; 96365; 96367; 97110; 97116; 97530; 99291; G0378; J0330; J0696; J1450; J1815; J2250; J2405; J2543; J3480; J3490; J7060

== ENCOUNTER 2022-01-16 12:29 | Inpatient (IN) | payer OTHER ==
[~2022-01-16] VITALS: Ht 162.6 cm; Wt 93.8 kg
[~2022-01-16 12:29] MED LIST changes: -AMLO-489 PO; +AMLO-496 PO; -ASPI-543 PO; +ATOR20TA50 PO; +CANA100T PO; -CHOL20007 PO; +CHOL500021 OR; +COEN100C15 PO; +DULA0.5I SC; -ESCI-28 PO; +GLIP5TAB12 PO; +LATA0.0019 EACHEYE; +VITA180C PO
[2022-01-16 13:23] LABS: Basophils # (auto) 0.1 10 ^3/uL (0-0.2); Basophils % (auto) 0.7 % (0.0-2.0); Eosinophils # (auto) 0.2 10 ^3/uL (0-0.8); Eosinophils % (auto) 1.4 % (0.0-7.0); Hemoglobin 16.8 g/dL (13.5-17.5); Monocytes # (auto) 0.9 10 ^3/uL (0-1.3); Red Blood Cells 6.24 10^6/uL (4.5-5.90); Red Cell Distribution Width 14.5 % (11.8-14.3)
[2022-01-16 13:25] LABS: Hematocrit 51.4 % (41.0-53.0); Lymphocytes % (auto) 15.5 % (10.0-50.0); Mean Corpuscular Hemoglobin 26.9 pg (28.0-32.0); Mean Corpuscular Hgb Conc. 32.7 g/dL (32.0-36.0); Mean Corpuscular Volume 82.4 fL (80.0-100.0); Monocytes % (auto) 6.9 % (0.0-12.0); Neutrophils # (auto) 9.9 10 ^3/uL (1.6-8.6); Neutrophils % (auto) 75.5 % (37.0-80.0); Nucleated Red Blood Cells % 0.3 %; White Blood Cell 13.1 10^3/uL (4.4-10.8)
[2022-01-16 13:47] LABS: Albumin 3.1 g/dL (3.4-5.0); Calcium 9.1 mg/dL (8.5-10.1); Potassium 4.1 mmol/L (3.5-5.1)
[2022-01-16 13:50] LABS: BUN/Creatinine Ratio 20.8; Bilirubin, Total 0.7 mg/dL (0.2-1.0); Total Protein 6.7 g/dL (6.4-8.2)
[2022-01-16] MEDS ORDERED: metroNIDAZOLE 500MG/100ML 100 ML IV ONE (19:30)
[2022-01-16] MEDS ORDERED: DULAGLUTIDE 1.5 MG SC SCH (20:00)
[2022-01-16] MEDS ORDERED: hydrALAZINE HCL 20 MG/ML VL IV PRN (20:00)
[2022-01-16] MEDS ORDERED: cefTRIAXone 1GM/50ML D5W 50 ML IV ONE (20:00)
[2022-01-16] MEDS ORDERED: DEXTROSE (50%) 50ML SYRG IV PRN (20:00)
[2022-01-16 21:05] LABS: Cholesterol 101 mg/dL (< 200); Triglycerides 165 mg/dL (< 150)
[2022-01-16 21:08] LABS: HDL Cholesterol 28 mg/dL (40-59); LDL Cholesterol 59 mg/dL (< 100)
[2022-01-16] MEDS: LACTATED RINGER'S 1,000 ML IV SCH (21:28)
[2022-01-16] MEDS ORDERED: METOPROLOL TARTRATE 50 MG TAB PO SCH (22:00)
[2022-01-16] MEDS ORDERED: LATANOPROST 0.005 % OPTH(EYE) SOL 2.5ML EACHEYE SCH (22:00)
[2022-01-16] MEDS ORDERED: ATORVASTATIN 20 MG TAB PO SCH (22:00)
[2022-01-16] MEDS ORDERED: APIXABAN 5 MG TAB PO SCH (22:00)
[2022-01-16] MEDS ORDERED: COENZYME Q10 100 MG PO SCH (22:00)
[2022-01-16 22:18] LABS: Urine Bacteria MANY /hpf (None Seen); Urine Blood 2+ /uL (Negative); Urine Hyaline Cast MOD /lpf (0 - 2); Urine Mucus FEW (None Seen); Urine Specific Gravity 1.032 (1.001-1.035); Urine WBC 11 /hpf (0 - 3)
[2022-01-16] MEDS: metroNIDAZOLE 500MG/100ML 100 ML IV SCH (22:43)
[2022-01-16 22:49] LABS: INR 1.1 (0.9-1.15)
[2022-01-17] MEDS: ACCU-CHEK COMFORT CURVE STRIP VI SCH ×4 (00:29→18:00)
[2022-01-17] MEDS: InsuLIN REG 1unit/0.01ml Soln (100units/ml) SC SCH ×4 (00:30→18:00)
[2022-01-17] MEDS: metroNIDAZOLE 500MG/100ML 100 ML IV SCH ×3 (06:06→22:00)
[2022-01-17] MEDS: LACTATED RINGER'S 1,000 ML IV SCH ×2 (06:07→16:12)
[2022-01-17 06:39] LABS: Basophils # (auto) 0 10 ^3/uL (0-0.2); Basophils % (auto) 0.4 % (0.0-2.0); Eosinophils # (auto) 0.2 10 ^3/uL (0-0.8); Eosinophils % (auto) 2.1 % (0.0-7.0); Hematocrit 47.6 % (41.0-53.0); Hemoglobin 15.7 g/dL (13.5-17.5); Lymphocytes # (auto) 2.1 10 ^3/uL (0.4-5.4); Lymphocytes % (auto) 17.4 % (10.0-50.0); Mean Corpuscular Hemoglobin 27.3 pg (28.0-32.0); Mean Corpuscular Volume 82.7 fL (80.0-100.0); Monocytes # (auto) 0.8 10 ^3/uL (0-1.3); Monocytes % (auto) 7.1 % (0.0-12.0); Neutrophils # (auto) 8.6 10 ^3/uL (1.6-8.6); Nucleated Red Blood Cells % 0.1 %; Red Blood Cells 5.76 10^6/uL (4.5-5.90); Red Cell Distribution Width 14.3 % (11.8-14.3); White Blood Cell 11.8 10^3/uL (4.4-10.8)
[2022-01-17 06:47] LABS: BUN/Creatinine Ratio 31.4; Potassium 3.9 mmol/L (3.5-5.1)
[2022-01-17] MEDS ORDERED: CANAGLIFLOZIN PO SCH (07:00)
[2022-01-17] MEDS ORDERED: metFORMIN HYDROCHLORIDE 500 MG TAB PO SCH (07:00)
[2022-01-17 07:26] LABS: Bilirubin, Total 0.6 mg/dL (0.2-1.0); Total Protein 6.1 g/dL (6.4-8.2)
[2022-01-17] MEDS: cefTRIAXone 1GM/50ML D5W 50 ML IV SCH (09:00)
[2022-01-17] MEDS ORDERED: GASTROGRAFIN 120 ML SOL ONE (09:39)
[2022-01-17] MEDS ORDERED: PATIENTS OWN MEDICATION (Amlodipine Besylate 1 TAB) PO SCH (10:00)
[2022-01-17] MEDS ORDERED: FINASTERIDE 5 MG TAB PO SCH (10:00)
[2022-01-17] MEDS ORDERED: PATIENTS OWN MEDICATION (Cholecalciferol (Vitamin D) 5,000 UNIT) OR SCH (10:00)
[2022-01-17] MEDS ORDERED: TOCOPHERYL ACETATE DL ALPHA 180 MG PO SCH (10:00)
[2022-01-17] MEDS ORDERED: glipiZIDE 5 MG TAB PO SCH (10:00)
[2022-01-17] MEDS ORDERED: PATIENTS OWN MEDICATION (Losartan Potassium 100 MG) PO SCH (10:00)
[2022-01-17] MEDS ORDERED: amLODIPine BESYLATE 5 MG TAB PO ONE (13:00)
[2022-01-17] MEDS: ATORVASTATIN 20 MG TAB PO SCH (22:00)
[2022-01-17] MEDS ORDERED: PATIENTS OWN MEDICATION (ELIQUIS 5 MG) PO SCH (22:00)
[2022-01-17] MEDS: APIXABAN 5 MG TAB PO SCH (22:00)
[2022-01-17] MEDS: METOPROLOL TARTRATE 50 MG TAB PO SCH (22:00)
[2022-01-18] MEDS: LACTATED RINGER'S 1,000 ML IV SCH ×3 (02:00→22:00)
[2022-01-18 05:00] VITALS: BP 130/91
[2022-01-18] MEDS: InsuLIN REG 1unit/0.01ml Soln (100units/ml) SC SCH ×4 (06:00→18:00)
[2022-01-18] MEDS: ACCU-CHEK COMFORT CURVE STRIP VI SCH ×4 (06:00→18:05)
[2022-01-18] MEDS: metroNIDAZOLE 500MG/100ML 100 ML IV SCH ×3 (06:30→22:30)
[2022-01-18 08:00] VITALS: BP 138/92
[2022-01-18 09:00] VITALS: BP 138/92
[2022-01-18] MEDS: cefTRIAXone 1GM/50ML D5W 50 ML IV SCH (09:09)
[2022-01-18] MEDS: APIXABAN 5 MG TAB PO SCH ×2 (11:23→22:29)
[2022-01-18] MEDS: FINASTERIDE 5 MG TAB PO SCH (11:24)
[2022-01-18] MEDS: METOPROLOL TARTRATE 50 MG TAB PO SCH ×2 (11:24→22:30)
[2022-01-18] MEDS: amLODIPine BESYLATE 5 MG TAB PO SCH (11:25)
[2022-01-18 13:00] VITALS: BP 132/91
[2022-01-18 16:48] VITALS: BP 133/91
[2022-01-18 22:00] VITALS: BP 133/92
[2022-01-18] MEDS: ATORVASTATIN 20 MG TAB PO SCH (22:29)
[2022-01-19] MEDS: ACCU-CHEK COMFORT CURVE STRIP VI SCH ×4 (06:00→18:32)
[2022-01-19] MEDS: InsuLIN REG 1unit/0.01ml Soln (100units/ml) SC SCH ×4 (06:00→18:59)
[2022-01-19] MEDS: metroNIDAZOLE 500MG/100ML 100 ML IV SCH ×3 (06:37→22:43)
[2022-01-19 08:00] VITALS: BP 138/92
[2022-01-19] MEDS: LACTATED RINGER'S 1,000 ML IV SCH ×2 (08:00→18:33)
[2022-01-19 09:21] VITALS: BP 126/81
[2022-01-19] MEDS: cefTRIAXone 1GM/50ML D5W 50 ML IV SCH (09:43)
[2022-01-19] MEDS: METOPROLOL TARTRATE 50 MG TAB PO SCH ×2 (09:44→22:42)
[2022-01-19] MEDS: FINASTERIDE 5 MG TAB PO SCH (09:44)
[2022-01-19] MEDS: amLODIPine BESYLATE 5 MG TAB PO SCH (09:44)
[2022-01-19] MEDS: APIXABAN 5 MG TAB PO SCH ×2 (09:44→22:41)
[2022-01-19 13:00] VITALS: BP 134/87
[2022-01-19 16:55] VITALS: BP 133/91
[2022-01-19 20:00] VITALS: BP 134/90
[2022-01-19 22:00] VITALS: BP 134/90
[2022-01-19 22:08] LABS: Urine Bacteria NONE SEEN /hpf (None Seen); Urine Blood 2+ /uL (Negative); Urine Specific Gravity 1.014 (1.001-1.035); Urine WBC 4 /hpf (0 - 3)
[2022-01-19] MEDS: ATORVASTATIN 20 MG TAB PO SCH (22:42)
[2022-01-20] MEDS: ACCU-CHEK COMFORT CURVE STRIP VI SCH ×5 (00:02→23:43)
[2022-01-20] MEDS: InsuLIN REG 1unit/0.01ml Soln (100units/ml) SC SCH ×5 (00:25→23:43)
[2022-01-20] MEDS: LACTATED RINGER'S 1,000 ML IV SCH ×2 (04:00→14:16)
[2022-01-20 05:00] VITALS: BP 115/62
[2022-01-20] MEDS: metroNIDAZOLE 500MG/100ML 100 ML IV SCH ×3 (06:18→21:55)
[2022-01-20 09:00] VITALS: BP 140/96
[2022-01-20] MEDS: METOPROLOL TARTRATE 50 MG TAB PO SCH ×2 (09:37→22:04)
[2022-01-20] MEDS: FINASTERIDE 5 MG TAB PO SCH (09:37)
[2022-01-20] MEDS: APIXABAN 5 MG TAB PO SCH ×2 (09:38→21:56)
[2022-01-20] MEDS: amLODIPine BESYLATE 5 MG TAB PO SCH (09:40)
[2022-01-20] MEDS: cefTRIAXone 1GM/50ML D5W 50 ML IV SCH (09:42)
[2022-01-20 13:00] VITALS: BP 145/98
[2022-01-20 17:00] VITALS: BP 122/90
[2022-01-20] MEDS: ATORVASTATIN 20 MG TAB PO SCH (21:56)
[2022-01-21 00:30] VITALS: BP 142/90
[2022-01-21] MEDS: LACTATED RINGER'S 1,000 ML IV SCH ×2 (03:21→17:09)
[2022-01-21] MEDS: metroNIDAZOLE 500MG/100ML 100 ML IV SCH ×3 (05:09→21:57)
[2022-01-21] MEDS: ACCU-CHEK COMFORT CURVE STRIP VI SCH ×4 (05:09→23:39)
[2022-01-21] MEDS: InsuLIN REG 1unit/0.01ml Soln (100units/ml) SC SCH ×4 (05:09→23:40)
[2022-01-21 05:46] VITALS: BP 154/100
[2022-01-21 09:04] VITALS: BP 157/108
[2022-01-21] MEDS: APIXABAN 5 MG TAB PO SCH ×2 (09:27→21:59)
[2022-01-21] MEDS: amLODIPine BESYLATE 5 MG TAB PO SCH (09:27)
[2022-01-21] MEDS: METOPROLOL TARTRATE 50 MG TAB PO SCH ×2 (09:28→21:59)
[2022-01-21] MEDS: FINASTERIDE 5 MG TAB PO SCH (09:29)
[2022-01-21] MEDS: cefTRIAXone 1GM/50ML D5W 50 ML IV SCH (09:29)
[2022-01-21 13:00] VITALS: BP 143/103
[2022-01-21 16:37] VITALS: BP 132/96
[2022-01-21] MEDS: ATORVASTATIN 20 MG TAB PO SCH (21:59)
[2022-01-22 00:26] VITALS: BP 149/97
[2022-01-22] MEDS: LACTATED RINGER'S 1,000 ML IV SCH ×3 (00:45→17:36)
[2022-01-22] MEDS: InsuLIN REG 1unit/0.01ml Soln (100units/ml) SC SCH ×3 (05:41→18:00)
[2022-01-22] MEDS: metroNIDAZOLE 500MG/100ML 100 ML IV SCH ×3 (05:41→22:11)
[2022-01-22] MEDS: ACCU-CHEK COMFORT CURVE STRIP VI SCH ×3 (05:41→18:12)
[2022-01-22 06:00] VITALS: BP 128/90
[2022-01-22 09:28] VITALS: BP 128/96
[2022-01-22] MEDS: cefTRIAXone 1GM/50ML D5W 50 ML IV SCH (09:50)
[2022-01-22] MEDS: FINASTERIDE 5 MG TAB PO SCH (09:50)
[2022-01-22] MEDS: APIXABAN 5 MG TAB PO SCH ×2 (09:50→22:11)
[2022-01-22] MEDS: METOPROLOL TARTRATE 50 MG TAB PO SCH ×2 (09:51→22:10)
[2022-01-22] MEDS: amLODIPine BESYLATE 5 MG TAB PO SCH (09:52)
[2022-01-22 13:00] VITALS: BP_SYST 136; BP_SYST 141; BP_DIAS 82; BP_DIAS 86
[2022-01-22 17:23] VITALS: BP 128/86
[2022-01-22 22:04] VITALS: BP 153/98
[2022-01-22] MEDS: ATORVASTATIN 20 MG TAB PO SCH (22:10)
[2022-01-23] MEDS: ACCU-CHEK COMFORT CURVE STRIP VI SCH ×5 (01:05→23:32)
[2022-01-23] MEDS: LACTATED RINGER'S 1,000 ML IV SCH (03:25)
[2022-01-23 05:00] VITALS: BP 144/98
[2022-01-23] MEDS: metroNIDAZOLE 500MG/100ML 100 ML IV SCH ×2 (05:16→13:40)
[2022-01-23] MEDS: InsuLIN REG 1unit/0.01ml Soln (100units/ml) SC SCH ×5 (05:17→23:32)
[2022-01-23 05:57] LABS: Basophils # (auto) 0.1 10 ^3/uL (0-0.2); Basophils % (auto) 1.2 % (0.0-2.0); Eosinophils # (auto) 0.2 10 ^3/uL (0-0.8); Eosinophils % (auto) 2.9 % (0.0-7.0); Hematocrit 46.4 % (41.0-53.0); Hemoglobin 16.2 g/dL (13.5-17.5); Lymphocytes # (auto) 2.5 10 ^3/uL (0.4-5.4); Lymphocytes % (auto) 36.8 % (10.0-50.0); Mean Corpuscular Hemoglobin 28.2 pg (28.0-32.0); Mean Corpuscular Hgb Conc. 34.8 g/dL (32.0-36.0); Mean Corpuscular Volume 80.9 fL (80.0-100.0); Monocytes # (auto) 0.5 10 ^3/uL (0-1.3); Monocytes % (auto) 8.1 % (0.0-12.0); Neutrophils # (auto) 3.4 10 ^3/uL (1.6-8.6); Nucleated Red Blood Cells % 0.3 %; Red Blood Cells 5.73 10^6/uL (4.5-5.90); Red Cell Distribution Width 14.1 % (11.8-14.3); White Blood Cell 6.7 10^3/uL (4.4-10.8)
[2022-01-23 08:00] VITALS: BP 135/107
[2022-01-23] MEDS: APIXABAN 5 MG TAB PO SCH ×2 (09:24→22:26)
[2022-01-23] MEDS: amLODIPine BESYLATE 5 MG TAB PO SCH (09:24)
[2022-01-23] MEDS: FINASTERIDE 5 MG TAB PO SCH (09:24)
[2022-01-23] MEDS: cefTRIAXone 1GM/50ML D5W 50 ML IV SCH (09:24)
[2022-01-23] MEDS: METOPROLOL TARTRATE 50 MG TAB PO SCH ×3 (09:25→22:27)
[2022-01-23 12:00] VITALS: BP 141/100
[2022-01-23] MEDS ORDERED: METR500T PO (12:08)
[2022-01-23] MEDS ORDERED: LEVO500T31 PO (12:08)
[2022-01-23 16:00] VITALS: BP 127/89
[2022-01-23] MEDS ORDERED: METOCLOPRAMIDE HCL 5MG/ml INJ 2ml VIAL IV ONE (16:15)
[2022-01-23] MEDS ORDERED: KETOROLAC TROMETH 30 MG/ML 1ML VIAL IV PRN (16:15)
[2022-01-23 22:00] VITALS: BP 141/90
[2022-01-23] MEDS: metroNIDAZOLE 500 MG TAB PO SCH (22:26)
[2022-01-23] MEDS: ATORVASTATIN 20 MG TAB PO SCH (22:26)
[2022-01-24 05:00] VITALS: BP 149/103
[2022-01-24] MEDS: InsuLIN REG 1unit/0.01ml Soln (100units/ml) SC SCH ×2 (06:00→11:49)
[2022-01-24] MEDS: ACCU-CHEK COMFORT CURVE STRIP VI SCH ×2 (06:09→11:46)
[2022-01-24] MEDS: METOCLOPRAMIDE HCL 5MG/ml INJ 2ml VIAL IV SCH ×2 (06:26→14:00)
[2022-01-24] MEDS: metroNIDAZOLE 500 MG TAB PO SCH ×2 (06:27→14:00)
[2022-01-24 08:00] VITALS: BP 126/89
[2022-01-24] MEDS: APIXABAN 5 MG TAB PO SCH (09:15)
[2022-01-24] MEDS: FINASTERIDE 5 MG TAB PO SCH (09:16)
[2022-01-24] MEDS: METOPROLOL TARTRATE 50 MG TAB PO SCH (09:16)
[2022-01-24] MEDS: amLODIPine BESYLATE 5 MG TAB PO SCH (09:16)
[2022-01-24] MEDS ORDERED: METO-281 PO (09:58)
[2022-01-24] MEDS ORDERED: SIME80CH6 PO (09:58)
[2022-01-24] MEDS ORDERED: levoFLOXacin 500 MG TAB PO SCH (10:00)
[2022-01-24 11:22] VITALS: BP 126/89
[2022-01-24 12:00] VITALS: BP 145/99
[2022-01-24] MEDS ORDERED: LACTULOSE 20Gm/30ML SOLN PO ONE (12:00)
[2022-01-24] MEDS ORDERED: FLEET ENEMA(ADULT) 135 ML PR ONE (12:00)
== END 2022-01-24 14:42 | disposition hospice, home (50) | DRG 871 ==
LOC: ER 12:29 → EDBD 12:29 → TELE 19:44 → TELE-WESTW 01-17 18:12
PROVIDERS: ADMIT Registered Nurse; ATTEND Family Medicine
PROC: 0D9670Z Drainage of Stomach with Drainage Device, Via Natural or Artificial Opening (ICD-10-PCS; principal; 2022-01-16)
DX: A41.9 Sepsis, unspecified organism (principal); L89.153 Pressure ulcer of sacral region, stage 3; K56.609 Unspecified intestinal obstruction, unspecified as to partial versus complete obstruction; D68.59 Other primary thrombophilia; E44.0 Moderate protein-calorie malnutrition; G82.20 Paraplegia, unspecified; J98.11 Atelectasis; N39.0 Urinary tract infection, site not specified; E88.09 Other disorders of plasma-protein metabolism, not elsewhere classified; E78.5 Hyperlipidemia, unspecified; I48.91 Unspecified atrial fibrillation; I44.7 Left bundle-branch block, unspecified; Z20.822 Contact with and (suspected) exposure to COVID-19; E11.22 Type 2 diabetes mellitus with diabetic chronic kidney disease; N18.9 Chronic kidney disease, unspecified; E11.40 Type 2 diabetes mellitus with diabetic neuropathy, unspecified; I12.9 Hypertensive chronic kidney disease with stage 1 through stage 4 chronic kidney disease, or unspecified chronic kidney disease; Z79.4 Long term (current) use of insulin; Z74.01 Bed confinement status; Z86.711 Personal history of pulmonary embolism; Z79.01 Long term (current) use of anticoagulants; Z79.84 Long term (current) use of oral hypoglycemic drugs; Z87.440 Personal history of urinary (tract) infections; Z90.49 Acquired absence of other specified parts of digestive tract; Z68.35 Body mass index [BMI] 35.0-35.9, adult
CPT/HCPCS: 36415; 71045; 74176; 74250; 80053; 80061; 81001; 82962; 83036; 83690; 84484; 85025; 85610; 87040; 87045; 87077; 87086; 87186; 87205; 87427; 93005; 96365; 96366; G0378; J0696; J1815; J1885; J3490

== ENCOUNTER 2022-03-10 11:00 | Emergency (ER) | payer OTHER ==
[~2022-03-10] VITALS: Ht 172.7 cm; Wt 86.4 kg
[~2022-03-10 11:00] MED LIST changes: +LEVO500T31 PO; +METO-281 PO; +METR500T PO; +SIME80CH6 PO
[2022-03-10 12:19] LABS: Albumin 2.9 g/dL (3.4-5.0); Calcium 9.2 mg/dL (8.5-10.1)
[2022-03-10 12:23] LABS: BUN/Creatinine Ratio 17.5; Bilirubin, Total 0.9 mg/dL (0.2-1.0); Total Protein 7.3 g/dL (6.4-8.2)
[2022-03-10 12:34] LABS: Basophils # (auto) 0 10 ^3/uL (0-0.2); Basophils % (auto) 0.3 % (0.0-2.0); Eosinophils # (auto) 0 10 ^3/uL (0-0.8); Eosinophils % (auto) 0.1 % (0.0-7.0); Hematocrit 50.4 % (41.0-53.0); Hemoglobin 16.8 g/dL (13.5-17.5); Lymphocytes # (auto) 1.5 10 ^3/uL (0.4-5.4); Lymphocytes % (auto) 10.4 % (10.0-50.0); Mean Corpuscular Hemoglobin 28.2 pg (28.0-32.0); Mean Corpuscular Hgb Conc. 33.3 g/dL (32.0-36.0); Mean Corpuscular Volume 84.6 fL (80.0-100.0); Monocytes # (auto) 0.9 10 ^3/uL (0-1.3); Monocytes % (auto) 6.4 % (0.0-12.0); Neutrophils # (auto) 11.8 10 ^3/uL (1.6-8.6); Neutrophils % (auto) 82.8 % (37.0-80.0); Nucleated Red Blood Cells % 0.2 %; Red Blood Cells 5.96 10^6/uL (4.5-5.90); White Blood Cell 14.3 10^3/uL (4.4-10.8)
[2022-03-10] MEDS ORDERED: hydrALAZINE HCL 20 MG/ML VL IV ONE (16:15)
[2022-03-10 22:28] VITALS: BP 136/98
== END 2022-03-10 22:47 | disposition short-term general hospital (02) ==
LOC: EDBD 11:00 → ER 11:00
DX: K85.90 Acute pancreatitis without necrosis or infection, unspecified (principal); K80.20 Calculus of gallbladder without cholecystitis without obstruction; K83.8 Other specified diseases of biliary tract; D72.829 Elevated white blood cell count, unspecified; E11.9 Type 2 diabetes mellitus without complications; I10 Essential (primary) hypertension; Z90.49 Acquired absence of other specified parts of digestive tract
CPT/HCPCS: 36415; 74176; 80053; 82150; 83690; 85025; 96374; 99285; J0360

== ENCOUNTER 2022-03-17 11:46 | Inpatient (IN) | payer OTHER ==
[~2022-03-17] VITALS: Ht 182.9 cm; Wt 95.4 kg
[2022-03-17 13:07] LABS: Eosinophils # (auto) 0.1 10 ^3/uL (0-0.8); Lymphocytes # (auto) 1.8 10 ^3/uL (0.4-5.4); Monocytes # (auto) 1.2 10 ^3/uL (0-1.3)
[2022-03-17 13:08] LABS: Basophils # (auto) 0.1 10 ^3/uL (0-0.2); Basophils % (auto) 0.7 % (0.0-2.0); Eosinophils % (auto) 0.3 % (0.0-7.0); Hematocrit 55.7 % (41.0-53.0); Hemoglobin 18.3 g/dL (13.5-17.5); Lymphocytes % (auto) 9.7 % (10.0-50.0); Mean Corpuscular Hemoglobin 27.9 pg (28.0-32.0); Mean Corpuscular Hgb Conc. 32.9 g/dL (32.0-36.0); Monocytes % (auto) 6.4 % (0.0-12.0); Neutrophils # (auto) 15.7 10 ^3/uL (1.6-8.6); Neutrophils % (auto) 82.9 % (37.0-80.0); Nucleated Red Blood Cells % 0.1 %; Red Blood Cells 6.55 10^6/uL (4.5-5.90); Red Cell Distribution Width 15.4 % (11.8-14.3)
[2022-03-17] MEDS ORDERED: SODIUM CHLORIDE 0.9% 500 ML IVB ONE (13:15)
[2022-03-17] MEDS ORDERED: ONDANSETRON HCL 4 MG/2 ML VIAL IV ONE ×2 (13:15→21:00)
[2022-03-17 13:36] LABS: Potassium 4.1 mmol/L (3.5-5.1)
[2022-03-17 13:37] LABS: BUN/Creatinine Ratio 16.8
[2022-03-17 13:38] LABS: Bilirubin, Total 0.6 mg/dL (0.2-1.0); Calcium 9.7 mg/dL (8.5-10.1)
[2022-03-17 13:39] LABS: Albumin 3.2 g/dL (3.4-5.0); Total Protein 7.2 g/dL (6.4-8.2)
[2022-03-17 13:59] LABS: Amylase 19 U/L (25-115); Lipase 41 U/L (73-393)
[2022-03-17] MEDS ORDERED: BENZOCAINE (DENTAL) 20 % SPRAY 60ML MT ONE (18:30)
[2022-03-17] MEDS ORDERED: MORPHINE SULFATE 4 MG/ML SYR/VIAL IV ONE (21:00)
[2022-03-17] MEDS ORDERED: DEXTROSE (50%) 50ML SYRG IV PRN (21:30)
[2022-03-17] MEDS: cefTRIAXone 1GM/50ML D5W 50 ML IV SCH (22:42)
[2022-03-17] MEDS: PANTOPRAZOLE 40 MG/10 ML VIAL INJ IV SCH (22:42)
[2022-03-17] MEDS: SODIUM CHLORIDE 0.9% 1,000 ML IV SCH (22:42)
[2022-03-18] MEDS: ACCU-CHEK COMFORT CURVE STRIP VI SCH ×4 (02:55→19:39)
[2022-03-18] MEDS: InsuLIN REG 1unit/0.01ml Soln (100units/ml) SC SCH ×4 (02:55→18:00)
[2022-03-18 03:46] LABS: Urine Bacteria NONE SEEN /hpf (None Seen); Urine Blood 3+ /uL (Negative); Urine Hyaline Cast FEW /lpf (0 - 2); Urine Mucus FEW (None Seen); Urine Specific Gravity 1.022 (1.001-1.035); Urine WBC 119 /hpf (0 - 3); Urine WBC Clumps PRESENT /hpf (None Seen)
[2022-03-18 03:54] LABS: Basophils # (auto) 0.1 10 ^3/uL (0-0.2); Basophils % (auto) 0.6 % (0.0-2.0); Eosinophils # (auto) 0.2 10 ^3/uL (0-0.8); Eosinophils % (auto) 1.3 % (0.0-7.0); Lymphocytes # (auto) 2.5 10 ^3/uL (0.4-5.4); Lymphocytes % (auto) 17.1 % (10.0-50.0); Mean Corpuscular Hemoglobin 27.9 pg (28.0-32.0); Mean Corpuscular Hgb Conc. 32.7 g/dL (32.0-36.0); Mean Corpuscular Volume 85.3 fL (80.0-100.0); Monocytes # (auto) 1.1 10 ^3/uL (0-1.3); Monocytes % (auto) 7.7 % (0.0-12.0); Neutrophils # (auto) 10.8 10 ^3/uL (1.6-8.6); Neutrophils % (auto) 73.3 % (37.0-80.0); Nucleated Red Blood Cells % 0.1 %; Red Blood Cells 5.39 10^6/uL (4.5-5.90); Red Cell Distribution Width 15.4 % (11.8-14.3); White Blood Cell 14.8 10^3/uL (4.4-10.8)
[2022-03-18 04:11] LABS: Calcium 9.1 mg/dL (8.5-10.1); Potassium 4.3 mmol/L (3.5-5.1)
[2022-03-18 04:18] LABS: Bilirubin, Total 0.8 mg/dL (0.2-1.0)
[2022-03-18] MEDS: cefTRIAXone 1GM/50ML D5W 50 ML IV SCH (09:39)
[2022-03-18] MEDS ORDERED: GASTROGRAFIN 120 ML SOL ONE (10:01)
[2022-03-18] MEDS: PANTOPRAZOLE 40 MG/10 ML VIAL INJ IV SCH (10:04)
[2022-03-18] MEDS: SODIUM CHLORIDE 0.9% 1,000 ML IV SCH (12:58)
[2022-03-18] MEDS: ONDANSETRON HCL 4 MG/2 ML VIAL IV PRN (20:06)
[2022-03-18] MEDS: MORPHINE SULFATE INJ 2 MG/ml SYRG IV PRN (20:08)
[2022-03-19] MEDS: SODIUM CHLORIDE 0.9% 1,000 ML IV SCH ×2 (02:06→15:56)
[2022-03-19] MEDS: ONDANSETRON HCL 4 MG/2 ML VIAL IV PRN (06:43)
[2022-03-19] MEDS: MORPHINE SULFATE INJ 2 MG/ml SYRG IV PRN ×3 (06:43→22:50)
[2022-03-19] MEDS: ACCU-CHEK COMFORT CURVE STRIP VI SCH ×5 (06:43→23:56)
[2022-03-19] MEDS: InsuLIN REG 1unit/0.01ml Soln (100units/ml) SC SCH ×5 (06:50→23:56)
[2022-03-19] MEDS: PANTOPRAZOLE 40 MG/10 ML VIAL INJ IV SCH (09:32)
[2022-03-19] MEDS: cefTRIAXone 1GM/50ML D5W 50 ML IV SCH (09:32)
[2022-03-19 15:56] VITALS: BP 137/89
[2022-03-19] MEDS ORDERED: HYDR10TA26 PO (17:17)
[2022-03-19] MEDS ORDERED: LISI40TA11 PO (17:17)
[2022-03-19] MEDS ORDERED: POTA-264 PO (17:17)
[2022-03-19] MEDS ORDERED: AMLO-489 PO (17:17)
[2022-03-19] MEDS ORDERED: CLON0.1D7 TOP (17:17)
[2022-03-19 20:00] VITALS: BP 138/94
[2022-03-19 22:00] VITALS: BP 138/94
[2022-03-20 05:00] VITALS: BP 130/91
[2022-03-20] MEDS: SODIUM CHLORIDE 0.9% 1,000 ML IV SCH ×2 (05:56→20:51)
[2022-03-20] MEDS: ACCU-CHEK COMFORT CURVE STRIP VI SCH ×3 (05:56→18:10)
[2022-03-20] MEDS: InsuLIN REG 1unit/0.01ml Soln (100units/ml) SC SCH ×3 (05:56→18:00)
[2022-03-20 08:00] VITALS: BP 119/83
[2022-03-20] MEDS: cefTRIAXone 1GM/50ML D5W 50 ML IV SCH (09:22)
[2022-03-20] MEDS: PANTOPRAZOLE 40 MG/10 ML VIAL INJ IV SCH (09:23)
[2022-03-20 12:00] VITALS: BP 140/93
[2022-03-20 16:00] VITALS: BP 140/93
[2022-03-20 20:00] VITALS: BP 153/99
[2022-03-20 22:00] VITALS: BP 153/99
[2022-03-20] MEDS: MORPHINE SULFATE INJ 2 MG/ml SYRG IV PRN (22:16)
[2022-03-21 05:00] VITALS: BP 164/102
[2022-03-21] MEDS: InsuLIN REG 1unit/0.01ml Soln (100units/ml) SC SCH ×5 (06:00→23:15)
[2022-03-21] MEDS: ACCU-CHEK COMFORT CURVE STRIP VI SCH ×5 (06:19→23:15)
[2022-03-21] MEDS: cefTRIAXone 1GM/50ML D5W 50 ML IV SCH (08:36)
[2022-03-21 09:11] VITALS: BP 162/102
[2022-03-21] MEDS: SODIUM CHLORIDE 0.9% 1,000 ML IV SCH (11:24)
[2022-03-21 13:18] VITALS: BP 153/107
[2022-03-21 17:13] VITALS: BP 163/118
[2022-03-21] MEDS: hydrALAZINE HCL 20 MG/ML VL IV PRN ×2 (18:08→23:14)
[2022-03-21 22:00] VITALS: BP 159/102
[2022-03-22 00:05] VITALS: BP 158/98
[2022-03-22] MEDS: SODIUM CHLORIDE 0.9% 1,000 ML IV SCH ×2 (01:38→15:54)
[2022-03-22 05:00] VITALS: BP 161/101
[2022-03-22] MEDS: InsuLIN REG 1unit/0.01ml Soln (100units/ml) SC SCH ×4 (05:13→23:02)
[2022-03-22] MEDS: hydrALAZINE HCL 20 MG/ML VL IV PRN (05:13)
[2022-03-22] MEDS: ACCU-CHEK COMFORT CURVE STRIP VI SCH ×4 (05:14→23:01)
[2022-03-22 08:45] VITALS: BP 163/105
[2022-03-22] MEDS ORDERED: cloNIDine 0.1 mg/24hr 7 DAY PATCH TD SCH (09:30)
[2022-03-22] MEDS: APIXABAN 5 MG TAB PO SCH ×3 (10:00→21:34)
[2022-03-22] MEDS: cefTRIAXone 1GM/50ML D5W 50 ML IV SCH (10:11)
[2022-03-22] MEDS: FINASTERIDE 5 MG TAB PO SCH (10:16)
[2022-03-22] MEDS: POTASSIUM CHL 10 Meq TABLET PO SCH (10:16)
[2022-03-22] MEDS: glipiZIDE 5 MG TAB PO SCH (10:16)
[2022-03-22] MEDS: hydrALAZINE HCL 10 MG TAB PO SCH ×2 (10:18→21:34)
[2022-03-22] MEDS: METOPROLOL TARTRATE 50 MG TAB PO SCH ×2 (10:18→21:35)
[2022-03-22] MEDS: amLODIPine BESYLATE 5 MG TAB PO SCH (10:18)
[2022-03-22 12:35] VITALS: BP 139/98
[2022-03-22] MEDS ORDERED: ARTIFICIAL TEARS 15ml EACHEYE PRN (12:45)
[2022-03-22] MEDS: SIMETHICONE 80 MG CHEWABLE TABLET PO SCH ×2 (14:23→21:35)
[2022-03-22] MEDS: metroNIDAZOLE 500 MG TAB PO SCH ×2 (14:24→21:34)
[2022-03-22 16:35] VITALS: BP 132/91
[2022-03-22] MEDS: metFORMIN HYDROCHLORIDE 500 MG TAB PO SCH (17:38)
[2022-03-22] MEDS: LATANOPROST 0.005 % OPTH(EYE) SOL 2.5ML EACHEYE SCH (21:34)
[2022-03-22] MEDS: ATORVASTATIN 20 MG TAB PO SCH (21:35)
[2022-03-22 22:00] VITALS: BP 138/94
[2022-03-23 05:00] VITALS: BP 138/88
[2022-03-23] MEDS: ACCU-CHEK COMFORT CURVE STRIP VI SCH ×4 (05:16→23:38)
[2022-03-23] MEDS: SODIUM CHLORIDE 0.9% 1,000 ML IV SCH ×2 (05:16→20:30)
[2022-03-23] MEDS: InsuLIN REG 1unit/0.01ml Soln (100units/ml) SC SCH ×4 (05:17→23:39)
[2022-03-23] MEDS: metroNIDAZOLE 500 MG TAB PO SCH ×3 (06:05→21:18)
[2022-03-23] MEDS: SIMETHICONE 80 MG CHEWABLE TABLET PO SCH ×3 (06:05→21:19)
[2022-03-23] MEDS: metFORMIN HYDROCHLORIDE 500 MG TAB PO SCH ×2 (06:06→17:56)
[2022-03-23 09:00] VITALS: BP 148/97
[2022-03-23] MEDS: cefTRIAXone 1GM/50ML D5W 50 ML IV SCH (09:03)
[2022-03-23] MEDS: glipiZIDE 5 MG TAB PO SCH (10:12)
[2022-03-23] MEDS: APIXABAN 5 MG TAB PO SCH ×2 (10:12→21:19)
[2022-03-23] MEDS: hydrALAZINE HCL 10 MG TAB PO SCH ×2 (10:12→21:20)
[2022-03-23] MEDS: amLODIPine BESYLATE 5 MG TAB PO SCH (10:13)
[2022-03-23] MEDS: METOPROLOL TARTRATE 50 MG TAB PO SCH ×2 (10:13→21:20)
[2022-03-23] MEDS: POTASSIUM CHL 10 Meq TABLET PO SCH (10:13)
[2022-03-23] MEDS: FINASTERIDE 5 MG TAB PO SCH (10:14)
[2022-03-23 13:00] VITALS: BP 122/88
[2022-03-23 17:00] VITALS: BP 143/95
[2022-03-23] MEDS: ATORVASTATIN 20 MG TAB PO SCH (21:19)
[2022-03-23] MEDS: LATANOPROST 0.005 % OPTH(EYE) SOL 2.5ML EACHEYE SCH (21:22)
[2022-03-23 22:00] VITALS: BP 148/95
[2022-03-24] MEDS: SODIUM CHLORIDE 0.9% 1,000 ML IV SCH (02:31)
[2022-03-24 05:00] VITALS: BP 148/99
[2022-03-24] MEDS: metroNIDAZOLE 500 MG TAB PO SCH ×3 (05:37→23:02)
[2022-03-24] MEDS: SIMETHICONE 80 MG CHEWABLE TABLET PO SCH ×3 (05:37→23:03)
[2022-03-24] MEDS: InsuLIN REG 1unit/0.01ml Soln (100units/ml) SC SCH ×3 (05:45→17:16)
[2022-03-24] MEDS: ACCU-CHEK COMFORT CURVE STRIP VI SCH ×3 (05:45→17:17)
[2022-03-24] MEDS: metFORMIN HYDROCHLORIDE 500 MG TAB PO SCH ×2 (06:22→17:15)
[2022-03-24 08:00] VITALS: BP 141/101
[2022-03-24] MEDS: cefTRIAXone 1GM/50ML D5W 50 ML IV SCH (09:52)
[2022-03-24] MEDS: METOPROLOL TARTRATE 50 MG TAB PO SCH ×2 (09:53→23:02)
[2022-03-24] MEDS: POTASSIUM CHL 10 Meq TABLET PO SCH (09:53)
[2022-03-24] MEDS: APIXABAN 5 MG TAB PO SCH ×2 (09:53→23:00)
[2022-03-24] MEDS: FINASTERIDE 5 MG TAB PO SCH (09:53)
[2022-03-24] MEDS: amLODIPine BESYLATE 5 MG TAB PO SCH (09:54)
[2022-03-24] MEDS: hydrALAZINE HCL 10 MG TAB PO SCH ×2 (09:54→23:01)
[2022-03-24] MEDS: glipiZIDE 5 MG TAB PO SCH (09:55)
[2022-03-24 12:00] VITALS: BP 135/102
[2022-03-24 17:00] VITALS: BP 161/105
[2022-03-24] MEDS: hydrALAZINE HCL 20 MG/ML VL IV PRN (17:16)
[2022-03-24] MEDS: LATANOPROST 0.005 % OPTH(EYE) SOL 2.5ML EACHEYE SCH (22:00)
[2022-03-24] MEDS: ATORVASTATIN 20 MG TAB PO SCH (23:02)
[2022-03-25 05:00] VITALS: BP 144/90
[2022-03-25] MEDS: InsuLIN REG 1unit/0.01ml Soln (100units/ml) SC SCH ×5 (06:00→23:10)
[2022-03-25] MEDS: SODIUM CHLORIDE 0.9% 1,000 ML IV SCH ×2 (06:06→15:24)
[2022-03-25 06:07] LABS: Calcium 8.6 mg/dL (8.5-10.1)
[2022-03-25] MEDS: SIMETHICONE 80 MG CHEWABLE TABLET PO SCH ×3 (06:07→23:07)
[2022-03-25] MEDS: ACCU-CHEK COMFORT CURVE STRIP VI SCH ×5 (06:07→23:10)
[2022-03-25] MEDS: metroNIDAZOLE 500 MG TAB PO SCH ×3 (06:07→23:06)
[2022-03-25] MEDS: metFORMIN HYDROCHLORIDE 500 MG TAB PO SCH ×2 (06:08→18:02)
[2022-03-25 06:10] LABS: BUN/Creatinine Ratio 17.3
[2022-03-25 06:19] LABS: Potassium 2.6 mmol/L (3.5-5.1)
[2022-03-25 09:00] VITALS: BP 154/103
[2022-03-25] MEDS ORDERED: POTASSIUM CHL 20 Meq TABLET PO ONE (09:15)
[2022-03-25] MEDS: cefTRIAXone 1GM/50ML D5W 50 ML IV SCH (11:03)
[2022-03-25] MEDS: METOPROLOL TARTRATE 50 MG TAB PO SCH ×2 (11:05→23:07)
[2022-03-25] MEDS: POTASSIUM CHL 10 Meq TABLET PO SCH (11:05)
[2022-03-25] MEDS: hydrALAZINE HCL 10 MG TAB PO SCH (11:06)
[2022-03-25] MEDS: amLODIPine BESYLATE 5 MG TAB PO SCH (11:07)
[2022-03-25] MEDS: FINASTERIDE 5 MG TAB PO SCH (11:07)
[2022-03-25] MEDS: APIXABAN 5 MG TAB PO SCH ×2 (11:08→23:06)
[2022-03-25] MEDS: glipiZIDE 5 MG TAB PO SCH (12:03)
[2022-03-25] MEDS: POTASSIUM CHL 20MEQ/100ML 100 ML IV SCH ×3 (12:05→16:11)
[2022-03-25 13:00] VITALS: BP 154/99
[2022-03-25] MEDS ORDERED: amLODIPine BESYLATE 5 MG TAB PO ONE (16:15)
[2022-03-25 17:25] VITALS: BP 144/93
[2022-03-25 22:00] VITALS: BP 144/90
[2022-03-25] MEDS: ATORVASTATIN 20 MG TAB PO SCH (23:06)
[2022-03-25] MEDS: LATANOPROST 0.005 % OPTH(EYE) SOL 2.5ML EACHEYE SCH (23:06)
[2022-03-26 05:00] VITALS: BP 142/90
[2022-03-26] MEDS: InsuLIN REG 1unit/0.01ml Soln (100units/ml) SC SCH ×4 (06:00→23:54)
[2022-03-26] MEDS: SODIUM CHLORIDE 0.9% 1,000 ML IV SCH ×2 (06:39→11:33)
[2022-03-26] MEDS: metroNIDAZOLE 500 MG TAB PO SCH ×3 (06:39→21:15)
[2022-03-26] MEDS: ACCU-CHEK COMFORT CURVE STRIP VI SCH ×4 (06:40→23:52)
[2022-03-26] MEDS: SIMETHICONE 80 MG CHEWABLE TABLET PO SCH ×3 (06:40→21:14)
[2022-03-26] MEDS: metFORMIN HYDROCHLORIDE 500 MG TAB PO SCH ×2 (06:41→17:54)
[2022-03-26 07:35] LABS: Basophils # (auto) 0.1 10 ^3/uL (0-0.2); Basophils % (auto) 1.1 % (0.0-2.0); Eosinophils # (auto) 0.2 10 ^3/uL (0-0.8); Eosinophils % (auto) 3.8 % (0.0-7.0); Hematocrit 41.6 % (41.0-53.0); Hemoglobin 13.9 g/dL (13.5-17.5); Lymphocytes # (auto) 2.1 10 ^3/uL (0.4-5.4); Lymphocytes % (auto) 36.3 % (10.0-50.0); Mean Corpuscular Hemoglobin 27.7 pg (28.0-32.0); Mean Corpuscular Hgb Conc. 33.5 g/dL (32.0-36.0); Mean Corpuscular Volume 82.8 fL (80.0-100.0); Monocytes # (auto) 0.4 10 ^3/uL (0-1.3); Monocytes % (auto) 7.5 % (0.0-12.0); Neutrophils % (auto) 51.3 % (37.0-80.0); Nucleated Red Blood Cells % 0.1 %; Red Blood Cells 5.02 10^6/uL (4.5-5.90); Red Cell Distribution Width 15.2 % (11.8-14.3); White Blood Cell 5.8 10^3/uL (4.4-10.8)
[2022-03-26 08:12] LABS: Albumin 2.6 g/dL (3.4-5.0); BUN/Creatinine Ratio 12.9; Bilirubin, Total 0.6 mg/dL (0.2-1.0); Calcium 8.8 mg/dL (8.5-10.1); Magnesium 1.8 mg/dL (1.6-2.6); Potassium 3.2 mmol/L (3.5-5.1); Total Protein 5.5 g/dL (6.4-8.2)
[2022-03-26 09:00] VITALS: BP 144/90
[2022-03-26] MEDS: FINASTERIDE 5 MG TAB PO SCH (09:29)
[2022-03-26] MEDS: cefTRIAXone 1GM/50ML D5W 50 ML IV SCH (09:29)
[2022-03-26] MEDS: APIXABAN 5 MG TAB PO SCH ×2 (09:29→21:15)
[2022-03-26] MEDS: amLODIPine BESYLATE 5 MG TAB PO SCH (09:30)
[2022-03-26] MEDS: METOPROLOL TARTRATE 50 MG TAB PO SCH ×2 (09:30→21:15)
[2022-03-26] MEDS: glipiZIDE 5 MG TAB PO SCH (09:31)
[2022-03-26] MEDS: POTASSIUM CHL 10 Meq TABLET PO SCH (09:32)
[2022-03-26 13:00] VITALS: BP 138/88
[2022-03-26 17:00] VITALS: BP 126/87
[2022-03-26] MEDS: ATORVASTATIN 20 MG TAB PO SCH (21:14)
[2022-03-26] MEDS: POTASSIUM CHL 20MEQ/100ML 100 ML IV SCH ×2 (21:16→23:08)
[2022-03-26] MEDS: LATANOPROST 0.005 % OPTH(EYE) SOL 2.5ML EACHEYE SCH (21:16)
[2022-03-26 22:00] VITALS: BP 135/96
[2022-03-27 04:59] VITALS: BP 127/91
[2022-03-27] MEDS: InsuLIN REG 1unit/0.01ml Soln (100units/ml) SC SCH ×4 (06:00→23:24)
[2022-03-27] MEDS: metFORMIN HYDROCHLORIDE 500 MG TAB PO SCH ×2 (06:02→18:41)
[2022-03-27] MEDS: ACCU-CHEK COMFORT CURVE STRIP VI SCH ×4 (06:02→23:24)
[2022-03-27] MEDS: SIMETHICONE 80 MG CHEWABLE TABLET PO SCH ×3 (06:03→21:47)
[2022-03-27] MEDS: metroNIDAZOLE 500 MG TAB PO SCH ×3 (06:03→21:47)
[2022-03-27 06:05] LABS: Basophils # (auto) 0.1 10 ^3/uL (0-0.2); Basophils % (auto) 1.1 % (0.0-2.0); Eosinophils # (auto) 0.2 10 ^3/uL (0-0.8); Eosinophils % (auto) 3.3 % (0.0-7.0); Hematocrit 42.3 % (41.0-53.0); Hemoglobin 14.1 g/dL (13.5-17.5); Lymphocytes # (auto) 2.4 10 ^3/uL (0.4-5.4); Lymphocytes % (auto) 31.5 % (10.0-50.0); Mean Corpuscular Hemoglobin 27.8 pg (28.0-32.0); Mean Corpuscular Hgb Conc. 33.3 g/dL (32.0-36.0); Mean Corpuscular Volume 83.3 fL (80.0-100.0); Monocytes # (auto) 0.6 10 ^3/uL (0-1.3); Neutrophils # (auto) 4.2 10 ^3/uL (1.6-8.6); Neutrophils % (auto) 56.1 % (37.0-80.0); Nucleated Red Blood Cells % 0.1 %; Red Blood Cells 5.07 10^6/uL (4.5-5.90); Red Cell Distribution Width 15.3 % (11.8-14.3); White Blood Cell 7.5 10^3/uL (4.4-10.8)
[2022-03-27 06:25] LABS: Potassium 3.3 mmol/L (3.5-5.1)
[2022-03-27 06:33] LABS: Albumin 2.8 g/dL (3.4-5.0); BUN/Creatinine Ratio 11.9; Bilirubin, Total 0.5 mg/dL (0.2-1.0); Total Protein 5.9 g/dL (6.4-8.2)
[2022-03-27 09:00] VITALS: BP 145/89
[2022-03-27] MEDS: cefTRIAXone 1GM/50ML D5W 50 ML IV SCH (09:25)
[2022-03-27] MEDS: APIXABAN 5 MG TAB PO SCH ×2 (09:25→21:47)
[2022-03-27] MEDS: POTASSIUM CHL 10 Meq TABLET PO SCH (09:26)
[2022-03-27] MEDS: glipiZIDE 5 MG TAB PO SCH (09:26)
[2022-03-27] MEDS: METOPROLOL TARTRATE 50 MG TAB PO SCH ×2 (09:26→21:47)
[2022-03-27] MEDS: amLODIPine BESYLATE 5 MG TAB PO SCH (09:27)
[2022-03-27] MEDS: FINASTERIDE 5 MG TAB PO SCH (09:27)
[2022-03-27] MEDS: SODIUM CHLORIDE 0.9% 1,000 ML IV SCH ×2 (10:18→16:35)
[2022-03-27 13:00] VITALS: BP 128/96
[2022-03-27 17:00] VITALS: BP 117/86
[2022-03-27] MEDS: ATORVASTATIN 20 MG TAB PO SCH (21:47)
[2022-03-27] MEDS: LATANOPROST 0.005 % OPTH(EYE) SOL 2.5ML EACHEYE SCH (21:47)
[2022-03-27 22:00] VITALS: BP 138/99
[2022-03-28 04:41] VITALS: BP 134/99
[2022-03-28] MEDS: InsuLIN REG 1unit/0.01ml Soln (100units/ml) SC SCH ×3 (06:00→17:24)
[2022-03-28 06:18] LABS: Basophils # (auto) 0.1 10 ^3/uL (0-0.2); Basophils % (auto) 1.5 % (0.0-2.0); Eosinophils # (auto) 0.2 10 ^3/uL (0-0.8); Eosinophils % (auto) 2.7 % (0.0-7.0); Hematocrit 42.9 % (41.0-53.0); Hemoglobin 14.4 g/dL (13.5-17.5); Lymphocytes # (auto) 2.1 10 ^3/uL (0.4-5.4); Lymphocytes % (auto) 26.4 % (10.0-50.0); Mean Corpuscular Hemoglobin 28.1 pg (28.0-32.0); Mean Corpuscular Hgb Conc. 33.6 g/dL (32.0-36.0); Mean Corpuscular Volume 83.6 fL (80.0-100.0); Monocytes # (auto) 0.7 10 ^3/uL (0-1.3); Monocytes % (auto) 8.8 % (0.0-12.0); Neutrophils # (auto) 4.9 10 ^3/uL (1.6-8.6); Neutrophils % (auto) 60.6 % (37.0-80.0); Red Blood Cells 5.13 10^6/uL (4.5-5.90); Red Cell Distribution Width 15.1 % (11.8-14.3); White Blood Cell 8.1 10^3/uL (4.4-10.8)
[2022-03-28] MEDS: metroNIDAZOLE 500 MG TAB PO SCH ×3 (06:20→22:16)
[2022-03-28] MEDS: ACCU-CHEK COMFORT CURVE STRIP VI SCH ×3 (06:20→17:24)
[2022-03-28] MEDS: SIMETHICONE 80 MG CHEWABLE TABLET PO SCH ×3 (06:20→22:17)
[2022-03-28] MEDS: metFORMIN HYDROCHLORIDE 500 MG TAB PO SCH ×2 (06:21→17:40)
[2022-03-28 06:41] LABS: Calcium 9.1 mg/dL (8.5-10.1); Potassium 3.4 mmol/L (3.5-5.1)
[2022-03-28 06:47] LABS: BUN/Creatinine Ratio 14.1; Bilirubin, Total 0.5 mg/dL (0.2-1.0); Total Protein 5.8 g/dL (6.4-8.2)
[2022-03-28] MEDS: POTASSIUM CHL 10 Meq TABLET PO SCH (08:53)
[2022-03-28] MEDS: cefTRIAXone 1GM/50ML D5W 50 ML IV SCH (08:53)
[2022-03-28] MEDS: FINASTERIDE 5 MG TAB PO SCH (08:54)
[2022-03-28] MEDS: METOPROLOL TARTRATE 50 MG TAB PO SCH ×2 (08:54→22:16)
[2022-03-28] MEDS: amLODIPine BESYLATE 5 MG TAB PO SCH (08:54)
[2022-03-28] MEDS: glipiZIDE 5 MG TAB PO SCH (08:55)
[2022-03-28] MEDS: APIXABAN 5 MG TAB PO SCH ×2 (08:55→22:16)
[2022-03-28 09:00] VITALS: BP 143/92
[2022-03-28] MEDS ORDERED: POTASSIUM EFFERVESENT TAB 25 MEQ GT ONE (10:00)
[2022-03-28] MEDS: ACETAMINOPHEN 325 MG TAB PO PRN (11:29)
[2022-03-28] MEDS: SODIUM CHLORIDE 0.9% 1,000 ML IV SCH (12:30)
[2022-03-28 13:00] VITALS: BP 144/95
[2022-03-28 16:45] VITALS: BP 137/99
[2022-03-28 21:59] VITALS: BP 132/96
[2022-03-28] MEDS: ATORVASTATIN 20 MG TAB PO SCH (22:16)
[2022-03-28] MEDS: LATANOPROST 0.005 % OPTH(EYE) SOL 2.5ML EACHEYE SCH (22:17)
[2022-03-29] MEDS: ACCU-CHEK COMFORT CURVE STRIP VI SCH ×5 (00:07→23:14)
[2022-03-29] MEDS: ONDANSETRON HCL 4 MG/2 ML VIAL IV PRN ×4 (02:21→22:37)
[2022-03-29 05:00] VITALS: BP 122/96
[2022-03-29 05:49] LABS: Basophils # (auto) 0.1 10 ^3/uL (0-0.2); Basophils % (auto) 0.5 % (0.0-2.0); Eosinophils # (auto) 0.1 10 ^3/uL (0-0.8); Eosinophils % (auto) 0.9 % (0.0-7.0); Hematocrit 51.2 % (41.0-53.0); Lymphocytes % (auto) 16.2 % (10.0-50.0); Mean Corpuscular Hemoglobin 28.1 pg (28.0-32.0); Mean Corpuscular Hgb Conc. 33.2 g/dL (32.0-36.0); Mean Corpuscular Volume 84.5 fL (80.0-100.0); Monocytes # (auto) 0.8 10 ^3/uL (0-1.3); Monocytes % (auto) 6.4 % (0.0-12.0); Neutrophils # (auto) 9.6 10 ^3/uL (1.6-8.6); Nucleated Red Blood Cells % 0.4 %; Red Blood Cells 6.06 10^6/uL (4.5-5.90); Red Cell Distribution Width 15.6 % (11.8-14.3); White Blood Cell 12.6 10^3/uL (4.4-10.8)
[2022-03-29] MEDS: SIMETHICONE 80 MG CHEWABLE TABLET PO SCH ×3 (05:50→22:00)
[2022-03-29] MEDS: metroNIDAZOLE 500 MG TAB PO SCH ×3 (05:50→22:00)
[2022-03-29] MEDS: InsuLIN REG 1unit/0.01ml Soln (100units/ml) SC SCH ×5 (05:59→23:38)
[2022-03-29 06:07] LABS: Albumin 3.2 g/dL (3.4-5.0); Calcium 9.3 mg/dL (8.5-10.1); Potassium 3.6 mmol/L (3.5-5.1)
[2022-03-29 06:10] LABS: Bilirubin, Total 0.8 mg/dL (0.2-1.0)
[2022-03-29] MEDS: metFORMIN HYDROCHLORIDE 500 MG TAB PO SCH ×2 (06:17→17:30)
[2022-03-29 08:55] VITALS: BP 122/97
[2022-03-29] MEDS: amLODIPine BESYLATE 5 MG TAB PO SCH (10:10)
[2022-03-29] MEDS: FINASTERIDE 5 MG TAB PO SCH (10:11)
[2022-03-29] MEDS: METOPROLOL TARTRATE 50 MG TAB PO SCH ×2 (10:11→22:27)
[2022-03-29] MEDS: glipiZIDE 5 MG TAB PO SCH (10:11)
[2022-03-29] MEDS: APIXABAN 5 MG TAB PO SCH ×2 (10:11→22:26)
[2022-03-29] MEDS: POTASSIUM CHL 10 Meq TABLET PO SCH (10:11)
[2022-03-29 12:11] LABS: Urine Bacteria FEW /hpf (None Seen); Urine Blood 2+ /uL (Negative); Urine Hyaline Cast FEW /lpf (0 - 2); Urine Mucus FEW (None Seen); Urine Specific Gravity 1.023 (1.001-1.035); Urine WBC 9 /hpf (0 - 3)
[2022-03-29 12:19] VITALS: BP 128/96
[2022-03-29] MEDS ORDERED: METR500T PO (13:05)
[2022-03-29] MEDS ORDERED: LACTULOSE 20Gm/30ML SOLN PO PRN (16:30)
[2022-03-29] MEDS ORDERED: LACTULOSE 20Gm/30ML SOLN PO ONE (16:30)
[2022-03-29 16:56] VITALS: BP 122/93
[2022-03-29] MEDS: ACETAMINOPHEN 325 MG TAB PO PRN (17:30)
[2022-03-29] MEDS ORDERED: ONDANSETRON HCL 4 MG/2 ML VIAL IV PRN (20:30)
[2022-03-29 22:00] VITALS: BP 127/99
[2022-03-29] MEDS: ATORVASTATIN 20 MG TAB PO SCH (22:00)
[2022-03-29] MEDS: LATANOPROST 0.005 % OPTH(EYE) SOL 2.5ML EACHEYE SCH (22:26)
[2022-03-30 05:00] VITALS: BP 116/85
[2022-03-30] MEDS: SIMETHICONE 80 MG CHEWABLE TABLET PO SCH ×3 (05:31→22:00)
[2022-03-30] MEDS: metroNIDAZOLE 500 MG TAB PO SCH (05:31)
[2022-03-30 06:25] LABS: Eosinophils # (auto) 0 10 ^3/uL (0-0.8); Hemoglobin 17.2 g/dL (13.5-17.5); Nucleated Red Blood Cells % 0.1 %; Red Cell Distribution Width 15.4 % (11.8-14.3)
[2022-03-30 06:29] LABS: Basophils # (auto) 0.1 10 ^3/uL (0-0.2); Basophils % (auto) 0.4 % (0.0-2.0); Eosinophils % (auto) 0.1 % (0.0-7.0); Hematocrit 52.4 % (41.0-53.0); Lymphocytes # (auto) 1.6 10 ^3/uL (0.4-5.4); Lymphocytes % (auto) 7.8 % (10.0-50.0); Mean Corpuscular Hemoglobin 27.8 pg (28.0-32.0); Mean Corpuscular Hgb Conc. 32.8 g/dL (32.0-36.0); Mean Corpuscular Volume 84.7 fL (80.0-100.0); Monocytes % (auto) 5.2 % (0.0-12.0); Neutrophils # (auto) 17.3 10 ^3/uL (1.6-8.6); Neutrophils % (auto) 86.5 % (37.0-80.0); Red Blood Cells 6.19 10^6/uL (4.5-5.90)
[2022-03-30 06:32] LABS: Potassium 3.6 mmol/L (3.5-5.1)
[2022-03-30 06:35] LABS: Albumin 3.4 g/dL (3.4-5.0); BUN/Creatinine Ratio 13.9; Calcium 10.3 mg/dL (8.5-10.1)
[2022-03-30] MEDS: ACCU-CHEK COMFORT CURVE STRIP VI SCH ×4 (06:38→23:40)
[2022-03-30] MEDS: InsuLIN REG 1unit/0.01ml Soln (100units/ml) SC SCH ×4 (06:42→23:40)
[2022-03-30] MEDS: metFORMIN HYDROCHLORIDE 500 MG TAB PO SCH (06:43)
[2022-03-30 06:45] LABS: Bilirubin, Total 0.7 mg/dL (0.2-1.0)
[2022-03-30 08:48] VITALS: BP 102/76
[2022-03-30] MEDS: APIXABAN 5 MG TAB PO SCH ×2 (09:16→22:28)
[2022-03-30] MEDS: POTASSIUM CHL 10 Meq TABLET PO SCH (09:16)
[2022-03-30] MEDS: glipiZIDE 5 MG TAB PO SCH (09:16)
[2022-03-30] MEDS: amLODIPine BESYLATE 5 MG TAB PO SCH (09:17)
[2022-03-30] MEDS: FINASTERIDE 5 MG TAB PO SCH (09:17)
[2022-03-30] MEDS: METOPROLOL TARTRATE 50 MG TAB PO SCH ×2 (09:17→22:28)
[2022-03-30] MEDS ORDERED: ERTAPENEM SOD INJ 1 GM in SODIUM CHL 0.9% 50 ML IV ONE (11:00)
[2022-03-30] MEDS: ONDANSETRON HCL 4 MG/2 ML VIAL IV PRN ×2 (11:54→22:30)
[2022-03-30 13:36] VITALS: BP 115/86
[2022-03-30] MEDS ORDERED: SODIUM CHLORIDE 0.9% 1,000 ML IV ONE (14:00)
[2022-03-30 16:44] VITALS: BP 103/72
[2022-03-30 22:00] VITALS: BP 131/89
[2022-03-30] MEDS: ATORVASTATIN 20 MG TAB PO SCH (22:00)
[2022-03-30] MEDS: LATANOPROST 0.005 % OPTH(EYE) SOL 2.5ML EACHEYE SCH (22:28)
[2022-03-31 05:00] VITALS: BP 124/88
[2022-03-31] MEDS: ONDANSETRON HCL 4 MG/2 ML VIAL IV PRN (05:06)
[2022-03-31] MEDS: SIMETHICONE 80 MG CHEWABLE TABLET PO SCH ×2 (05:49→14:04)
[2022-03-31] MEDS: InsuLIN REG 1unit/0.01ml Soln (100units/ml) SC SCH ×2 (06:00→12:00)
[2022-03-31 06:12] LABS: Basophils # (auto) 0.1 10 ^3/uL (0-0.2); Basophils % (auto) 0.9 % (0.0-2.0); Eosinophils # (auto) 0.2 10 ^3/uL (0-0.8); Eosinophils % (auto) 1.7 % (0.0-7.0); Hematocrit 47.2 % (41.0-53.0); Hemoglobin 15.6 g/dL (13.5-17.5); Lymphocytes # (auto) 2.3 10 ^3/uL (0.4-5.4); Mean Corpuscular Hemoglobin 28.2 pg (28.0-32.0); Mean Corpuscular Volume 85.4 fL (80.0-100.0); Monocytes # (auto) 1.1 10 ^3/uL (0-1.3); Monocytes % (auto) 7.9 % (0.0-12.0); Neutrophils # (auto) 10.6 10 ^3/uL (1.6-8.6); Neutrophils % (auto) 73.5 % (37.0-80.0); Nucleated Red Blood Cells % 0.2 %; Red Blood Cells 5.53 10^6/uL (4.5-5.90); Red Cell Distribution Width 15.3 % (11.8-14.3); White Blood Cell 14.4 10^3/uL (4.4-10.8)
[2022-03-31] MEDS: ACCU-CHEK COMFORT CURVE STRIP VI SCH ×2 (06:19→12:09)
[2022-03-31 06:31] LABS: Potassium 3.8 mmol/L (3.5-5.1)
[2022-03-31 06:39] LABS: BUN/Creatinine Ratio 19.1; Calcium 9.1 mg/dL (8.5-10.1)
[2022-03-31 08:53] VITALS: BP 114/77
[2022-03-31] MEDS ORDERED: ONDA-144 PO (10:00)
[2022-03-31] MEDS ORDERED: ERTAPENEM SOD INJ 1 GM in SODIUM CHL 0.9% 50 ML IV SCH (10:00)
[2022-03-31] MEDS ORDERED: CIPR-173 PO (10:02)
[2022-03-31] MEDS: POTASSIUM CHL 10 Meq TABLET PO SCH (11:04)
[2022-03-31] MEDS: glipiZIDE 5 MG TAB PO SCH (11:05)
[2022-03-31] MEDS: amLODIPine BESYLATE 5 MG TAB PO SCH (11:07)
[2022-03-31] MEDS: METOPROLOL TARTRATE 50 MG TAB PO SCH (11:07)
[2022-03-31] MEDS: APIXABAN 5 MG TAB PO SCH (11:08)
[2022-03-31] MEDS: FINASTERIDE 5 MG TAB PO SCH (11:08)
[2022-03-31 12:22] VITALS: BP 119/84
[2022-03-31 12:46] VITALS: BP 119/84
== END 2022-03-31 15:35 | disposition home or self-care (01) | DRG 871 ==
LOC: EDUNIT# 11:46 → EDBD 11:46 → ER 11:58 → TELE 21:47 → TELE-CENTR 03-19 15:59 → CENTRAL 03-24 06:28
PROVIDERS: ADMIT Nurse Practitioner Family; ATTEND Internal Medicine Pulmonary Disease
PROC: 0D9670Z Drainage of Stomach with Drainage Device, Via Natural or Artificial Opening (ICD-10-PCS; principal; 2022-03-18)
DX: A41.9 Sepsis, unspecified organism (principal); L89.154 Pressure ulcer of sacral region, stage 4; K86.1 Other chronic pancreatitis; N39.0 Urinary tract infection, site not specified; G82.20 Paraplegia, unspecified; E44.0 Moderate protein-calorie malnutrition; K56.600 Partial intestinal obstruction, unspecified as to cause; N17.9 Acute kidney failure, unspecified; E11.65 Type 2 diabetes mellitus with hyperglycemia; E78.5 Hyperlipidemia, unspecified; N40.0 Benign prostatic hyperplasia without lower urinary tract symptoms; I50.9 Heart failure, unspecified; E87.6 Hypokalemia; I11.0 Hypertensive heart disease with heart failure; I48.91 Unspecified atrial fibrillation; L98.429 Non-pressure chronic ulcer of back with unspecified severity; K80.20 Calculus of gallbladder without cholecystitis without obstruction; C44.91 Basal cell carcinoma of skin, unspecified; H40.9 Unspecified glaucoma; Z20.822 Contact with and (suspected) exposure to COVID-19; Z74.01 Bed confinement status; Z68.26 Body mass index [BMI] 26.0-26.9, adult; Z83.3 Family history of diabetes mellitus; Z82.49 Family history of ischemic heart disease and other diseases of the circulatory system
CPT/HCPCS: 36415; 71045; 73562; 74018; 74176; 74250; 80048; 80053; 81001; 82150; 82378; 82962; 83690; 83735; 84484; 85025; 87081; 87086; 87426; 93005; 96361; 96365; 96375; 96376; 97110; 97163; C9113; G0378; J0696; J1335; J1815; J2405; J3480

== ENCOUNTER 2023-11-04 17:52 | Emergency (ER) | payer OTHER ==
[~2023-11-04] VITALS: Ht 185.4 cm; Wt 106.8 kg
[~2023-11-04 17:52] MED LIST changes: -AMLO-496 PO; +AMLO1TAB22 PO; +AMLO1TAB23 PO; +CIPR-173 PO; +CLON0.1D7 TOP; -GLIP5TAB12 PO; +GLIP5TAB21 PO; +HYDR-2792 PO; -LATA0.0019 EACHEYE; +LATA0.008 EACHEYE; -LEVO500T31 PO; +LISI40TA16 PO; -LOSA-39 PO; +LOSA-535 PO; -METR500T PO; +ONDA-144 PO; +POTA-264 PO; +SIME80CH49 PO; -SIME80CH6 PO; +VITA-89 PO; -VITA180C PO
[2023-11-04] MEDS: LET TOPICAL SOLN 5 ML TOP ONE (20:15)
[2023-11-04 21:01] LABS: Urine Bacteria None Seen /hpf (None Seen)
[2023-11-04 21:09] LABS: Urine Blood 3+ /uL (Negative); Urine Clarity Ex.Turbid (Clear); Urine Color Red (Yellow); Urine Protein, UAD 3+ (Negative); Urine Specific Gravity 1.013 (1.001-1.035); Urine Urobilinogen Normal (Negative); Urine WBC 195 /hpf (0 - 3); Urine WBC Clumps PRESENT /hpf (None Seen); Urine pH 7.5 (5.0-9.0)
[2023-11-04] MEDS ORDERED: BACDST PO (21:17)
[2023-11-04] MEDS: cefTRIAXone SOD 1,000 MG VL IM ONE (22:31)
[2023-11-04 23:26] VITALS: BP 135/96; PULSE 83; RESP 17; TEMP 97.5; O2SAT 92
== END 2023-11-04 23:27 | disposition home or self-care (01) ==
LOC: EDBD 17:52 → ER 17:58
DX: T83.038A Leakage of other urinary catheter, initial encounter (principal); N39.0 Urinary tract infection, site not specified; I10 Essential (primary) hypertension; E11.9 Type 2 diabetes mellitus without complications; I48.91 Unspecified atrial fibrillation; E78.5 Hyperlipidemia, unspecified; Z98.890 Other specified postprocedural states; Z79.899 Other long term (current) drug therapy; Y92.89 Other specified places as the place of occurrence of the external cause
CPT/HCPCS: 51702; 81001; 96372; 99284; J0696; J3490

== ENCOUNTER 2024-02-26 02:44 | Inpatient (IN) | payer OTHER ==
[~2024-02-26] VITALS: Ht 182.9 cm; Wt 100.7 kg
[~2024-02-26 02:44] MED LIST changes: +BACDST PO
[2024-02-26 03:28] VITALS: PULSE 109; RESP 24; O2SAT 92
[2024-02-26 04:53] LABS: Urine Bacteria None Seen /hpf (None Seen)
[2024-02-26 05:29] LABS: Chloride 110 mmol/L (98-107); Potassium 4.4 mmol/L (3.5-5.1); Sodium 135 mmol/L (136-145)
[2024-02-26 05:30] LABS: Anion Gap 8 (5-15); Carbon Dioxide 17 mmol/L (20-31)
--- NOTE | 2024-02-26 05:33 | ED.PDOC ---
History of Present Illness HPI Comments 78-year-old male [place] presents with a chief complaint of urinary retention. Per EMS, patient c/o hematuria and urinary retention s/p getting his Colvin catheter changed by his home health nurse 12 hours ago. Patient denies any pain at this time. Chief Complaint: Urinary Time Seen by MD: 05:23 Primary Care Provider: NONE Reviewed Notes: Medications, Allergies Allergies: Coded Allergies: NO KNOWN ALLERGIES (Unverified , 03/10/21) Home Meds Active Scripts Sulfamethoxazole W/Trimethopri (Bactrim Ds Tablet) 1 Tab Tb, 1 TAB PO BID for 7 Days, #14 TAB Prov:LUDA URIARTE PAC 11/04/23 Ciprofloxacin Hcl (Cipro) 500 Mg Tab, 1 TAB PO BID, #14 TAB Prov:DUKE JOLLY MD 03/31/22 Ondansetron (Zofran) 4 Mg Tab, 1 TAB PO Q6HR, #20 TAB Prov:DUKE JOLLY MD 03/31/22 Simethicone (Simethicone) 80 Mg Chw, 1 TAB PO Q8HR, #20 TAB Prov:ARPAN LEBLANC MD 01/24/22 Metoclopramide Hcl (Reglan) 10 Mg Tab, 10 MG PO BID, #20 TAB Prov:ARPAN LEBLANC MD 01/24/22 Coenzyme Q10 (Coq-10) 100 Mg Cap, 100 MG PO HS, #30 CAP Prov:CHONG NOBLES 06/28/21 Reported Medications Amlodipine Besylate (Amlodipine Besylate) 5 Mg Tab, 1 TAB PO DAILY 03/19/22 Clonidine Hydrochloride (Clonidine Hcl) 0.1 Mg/24 Hr Dis, 1 PATCH TOP QWEEKLY 03/19/22 Potassium Chloride (K-Tabs) 10 Meq Tab, 1 TAB PO DAILY 03/19/22 Hydralazine Hcl (Hydralazine Hcl) 10 Mg Tab, 1 TAB PO BID 03/19/22 Lisinopril (Lisinopril) 40 Mg Tab, 1 TAB PO DAILY 03/19/22 Tocopheryl Acetate, Dl-Alpha (Vitamin E) 180 Mg Cap, 180 MG PO DAILY, CAP 06/28/21 Dulaglutide (Trulicity) 1.5 Mg/0.5 Ml Inj, 1.5 MG SC QWEEKLY, INJ 06/28/21 Glipizide (Glipizide) 5 Mg Tab, 1 TAB PO DAILY 06/28/21 Canagliflozin (INVOKANA) 100 Mg Tab, 1 TAB PO QAM 06/28/21 Atorvastatin Calcium (ATORVASTATIN CALCIUM) 20 Mg Tab, 1 TAB PO HS 06/28/21 Latanoprost (LATANOPROST) 0.005 % Coni, 1 DROP EACHEYE HS 06/28/21 Cholecalciferol (VITAMIN D) 5,000 Unit Tab, 5000 UNIT OR DAILY, TAB 06/28/21 Amlodipine Besylate (Amlodipine Besylate) 10 Mg Tab, 1 TAB PO DAILY, #30 TAB 5 Refills 06/28/21 Metoprolol Tartrate (Metoprolol Tartrate) 50 Mg Tab, 50 MG PO BID for 30 Days, MG 03/10/21 Metformin Hydrochloride (Metformin Hcl) 500 Mg Tab, 500 MG PO IBID for 30 Days, MG 03/10/21 Losartan Potassium (Losartan Potassium) 100 Mg Tab, 100 MG PO DAILY for 30 Days, MG 03/10/21 Finasteride (Finasteride) 5 Mg Tab, 5 MG PO DAILY for 30 Days, MG 03/10/21 Apixaban Base (ELIQUIS) 5 Mg Tab, 2.5 MG PO BID, TAB 03/10/21 Information Source: Patient Mode of Arrival: EMS Severity: Moderate Timing: Hours Duration: Since onset Prehospital treatment: None Past Medical History PAST MEDICAL HISTORY: AFIB, DM, High Lipids, HTN, PE, UTI'S Past Medical History (Other): hx biliary obstruction, bed bound Surgical History: Cholecystectomy, Tonsillectomy Surgical History (Other): Colostomy Family History Family History: Unknown Social History Smoker: Non-Smoker Alcohol: Denies ETOH Use Drugs: Denies Drug Use Lives In: Home Constitutional: denies: chills, diaphoresis, fatigue, fever, malaise, sweats, weakness, others EENTM: denies: blurred vision, double vision, ear bleeding, ear discharge, ear drainage, ear pain, ear ringing, eye pain, eye redness, hearing loss, mouth pain, mouth swelling, nasal discharge, nose bleeding, nose congestion, nose pain, photophobia, tearing, throat pain, throat swelling, voice changes, others Respiratory: denies: cough, hemoptysis, orthopnea, SOB at rest, shortness of breath, SOB with excertion, stridor, wheezing, others Cardiovascular: denies: chest pain, dizzy spells, diaphoresis, Dyspnea on exertion, edema, irregular heart beat, left arm pain, lightheadedness, palpitations, PND, syncope, others Gastrointestinal: denies: abdomen distended, abdominal pain, blood streaked bowels, constipated, diarrhea, dysphagia, difficulty swallowing, hematemesis, melena, nausea, poor appetite, poor fluid intake, rectal bleeding, rectal pain, vomiting, others Genitourinary: reports: hematuria; denies: burning, dysuria, flank pain, frequency, incontinence, penile discharge, penile sore, pain, testicle pain, testicle swelling, urgency, others Neurological: denies: dizziness, fainting, headache, left sided numbness, left sided weakness, numbness, paresthesia, pre-existing deficit, right sided numbness, right sided weakness, seizure, speech problems, tingling, tremors, weakness, others Musculoskeletal: denies: back pain, gout, joint pain, joint swelling, muscle pain, muscle stiffness, neck pain, others Integumetry: denies: bruises, change in color, change in hair/nails, dryness, laceration, lesions, lumps, rash, wounds, others Allergic/Immunocompromised: denies: Difficulty Healing, Frequent Infections, Hives, Itching, others Hematologic/Lymphatic: denies: anemia, blood clots, easy bleeding, easy bruising, swollen glands, others Endocrine: denies: excessive hunger, excessive sweating, excessive thirst, excessive urination, flushing, intolerance to cold, intolerance to heat, unexpl ained weight gain, unexplained weight loss, others Psychiatric: denies: anxiety, bipolar disorder, depression, hopeless, panic disorder, schizophrenia, sleepless, suicidal, others All Other Systems: Reviewed and Negative Physical Exam General Appearance: No Apparent Distress HEENT: Normal ENT Inspection Neck: Full Range of Motion, Normal Inspection Respiratory: Lungs Clear, No Accessory Muscle Use, No Respiratory Distress, Normal Breath Sounds Cardiovascular: No Edema, No JVD, Regular Rate/Rhythm Breast Exam: Deferred Gastrointestinal: Non Tender, Soft, Other (RLQ ostomy site appears clean, dry and intact) Genitalia: Deferred Pelvic: Deferred Rectal: Deferred Extremities: Normal inspection, Normal range of motion, Non-tender, No pedal edema Neurologic: Alert (oriented x 2), Normal Affect, Normal Mood, Other (bed bound, lethargic, slow to respond, difficulty answering simple questions) Cerebellar Function: NOT DONE Reflexes: NOT DONE Skin: Dry, Normal Color, Warm Lymphatic: NOT DONE Was a procedure done? Was a procedure done?: No Differential Dx Considerations may include: Colvin catheter obstruction, urinary retention, UTI, sepsis, electrolyte imbalance, among others X-Ray, Labs, Meds, VS Vital Signs Date Time Temp Pulse Resp B/P (MAP) Pulse Ox O2 Delivery O2 Flow Rate FiO2 02/26/24 06:00 96 23 124/83 (97) 100 02/26/24 05:00 100 23 117/81 (93) 93 02/26/24 03:28 98.0 109 24 142/110 (121) 92 98.0 02/26/24 03:28 109 24 92 Room Air* 0 21 02/26/24 02:50 97.1 114 16 147/92 (110) 99 Lab Test 02/26/24 06:38 02/26/24 05:39 02/26/24 05:08 02/26/24 04:42 Range/Units Lactic Acid Level Pending White Blood Count 13.6 H 4.4-10.8 10^3/uL Red Blood Count 6.06 H 4.5-5.90 10^6/uL Hemoglobin 18.2 H 13.5-17.5 g/dL Hematocrit 53.0 41.0-53.0 % Mean Corpuscular Volume 87.4 80.0-100.0 fL Mean Corpuscular Hemoglobin 30.0 28.0-32.0 pg Mean Corpuscular Hemoglobin Concent 34.3 32.0-36.0 g/dL Red Cell Distribution Width 13.9 11.8-14.3 % Platelet Count 173 140-450 10^3/uL Mean Platelet Volume 8.6 6.9-10.8 fL Neutrophils (%) (Auto) 81.4 H 37.0-80.0 % Lymphocytes (%) (Auto) 10.6 10.0-50.0 % Monocytes (%) (Auto) 7.4 0.0-12.0 % Eosinophils (%) (Auto) 0.3 0.0-7.0 % Basophils (%) (Auto) 0.3 0.0-2.0 % Neutrophils # (Auto) 11.1 H 1.6-8.6 10 ^3/uL Lymphocytes # (Auto) 1.4 0.4-5.4 10 ^3/uL Monocytes # (Auto) 1.0 0-1.3 10 ^3/uL Eosinophils # (Auto) 0 0-0.8 10 ^3/uL Basophils # (Auto) 0 0-0.2 10 ^3/uL Nucleated Red Blood Cells 0.0 % Sodium Level 135 L 136-145 mmol/L Potassium Level 4.4 3.5-5.1 mmol/L Chloride Level 110 H 98-107 mmol/L Carbon Dioxide Level 17 L 20-31 mmol/L Anion Gap 8 5-15 Blood Urea Nitrogen 22 9-23 mg/dL Creatinine 1.85 H 0.700-1.30 mg/dL Glomerular Filtration Rate Calc 36 >90 mL/min BUN/Creatinine Ratio 11.9 10.0-20.0 Serum Glucose 206 H 74-106 mg/dL Calcium Level 10.0 8.7-10.4 mg/dL Urine Color Light-brown Yellow Urine Clarity Ex.turbid Clear Urine pH 7.0 5.0-9.0 Urine Specific [place] 1.013 1.001-1.035 Urine Protein 3+ H Negative Urine Ketones Negative Negative Urine Blood 3+ H Negative /uL Urine Nitrite Negative Negative Urine Bilirubin Negative Negative Urine Urobilinogen Normal Negative mg/dL Urine Leukocyte Esterase 3+ Negative /uL Urine RBC 433 0 - 3 /hpf Urine WBC 1616 0 - 3 /hpf Urine WBC Clumps Present None Seen /hpf Urine Squamous Epithelial Cells None seen <5 /hpf Urine Bacteria None seen None Seen /hpf Urine Glucose Normal Normal mg/dL Current Medications Medications (Trade) Dose Ordered Sig/Monet Route Start Time Stop Time Status Last Admin Ceftriaxone Sodium 50 ml @ 100 mls/hr ONCE ONCE IV 02/26/24 05:45 02/26/24 06:14 DC 02/26/24 06:07 X-Ray, Labs, Meds, VS Comment 78-year-old male with a history of AFib, diabetes, hypertension, hyperlipidemia, PE and UTI presenting with urinary retention after having his Colvin catheter changed this morning. Vitals remarkable for heart rate 114, blood pressure 147/92 Exam remarkable for lethargy, difficulty answering simple questions, oriented x 2. No abd tenderness. note: Exam performed after new Colvin catheter was inserted with approximately 1 L cloudy urine output CBC remarkable for WBC 13.6, basic metabolic panel remarkable for creatinine 1.14, UA 3+ protein, 3+ blood, leukocyte esterase, RBCs and WBCs consistent with UTI Lactate pending Patient treated with the following in the ED: New Colvin catheter was inserted with good urine output and relief of abdominal discomfort and distention Patient also received Rocephin 1 g IV Plan is to admit the patient for IV antibiotics. Case discussed with MARTINE Drake, who will evaluate the patient. Time of 1ST Reevaluation: 05:53 Reevaluation 1ST: Unchanged Time of 2ND Reevaluation: 05:57 Reevaluation 2ND: Improved Patient Education/Counseling: Diagnosis, Treatment, Prognosis Family Education/Counseling: No Family Present Departure 1 Departure Time of Disposition: 05:57 Impression: Primary Impression: Urinary retention Additional Impressions: UTI (urinary tract infection) Qualified Codes: T83.511A - Infection and inflammatory reaction due to indwelling urethral catheter, initial encounter; N39.0 - Urinary tract i nfection, site not specified Encephalopathy Qualified Codes: G93.41 - Metabolic encephalopathy Disposition: ADMITTED INPATIENT Admit to: Med Surg Condition: Guarded Critical Care Note Critical Care Time?: No Stability Stability form required: No Heart Score Heart Score: Heart Score Response (Comments) Value History N/A 0 EKG N/A 0 Age N/A 0 Risk Factors N/A 0 Troponin N/A 0 Total 0 I personally scribed for MANDIE MCFARLANE MD ([email or web address]) on 02/26/24 at 05:33. Electronically submitted by Omkar Roberts ([email or web address]). MANDIE MCFARLANE MD Feb 26, 2024 05:33
[2024-02-26 05:35] LABS: BUN/Creatinine Ratio 11.9 (10.0-20.0); Blood Urea Nitrogen 22 mg/dL (9-23); Glucose 206 mg/dL (74-106)
[2024-02-26 05:37] LABS: Urine Blood 3+ /uL (Negative); Urine Clarity Ex.Turbid (Clear); Urine Color Light-Brown (Yellow); Urine Protein, UAD 3+ (Negative); Urine Specific Gravity 1.013 (1.001-1.035); Urine Urobilinogen Normal (Negative); Urine WBC 1616 /hpf (0 - 3); Urine WBC Clumps PRESENT /hpf (None Seen)
[2024-02-26 06:07] LABS: Basophils # (auto) 0 10 ^3/uL (0-0.2); Basophils % (auto) 0.3 % (0.0-2.0); Eosinophils # (auto) 0 10 ^3/uL (0-0.8); Eosinophils % (auto) 0.3 % (0.0-7.0); Hemoglobin 18.2 g/dL (13.5-17.5); Lymphocytes # (auto) 1.4 10 ^3/uL (0.4-5.4); Lymphocytes % (auto) 10.6 % (10.0-50.0); Mean Corpuscular Hgb Conc. 34.3 g/dL (32.0-36.0); Mean Corpuscular Volume 87.4 fL (80.0-100.0); Monocytes % (auto) 7.4 % (0.0-12.0); Neutrophils # (auto) 11.1 10 ^3/uL (1.6-8.6); Neutrophils % (auto) 81.4 % (37.0-80.0); Platelet Count (auto) 173 10^3/uL (140-450); Red Blood Cells 6.06 10^6/uL (4.5-5.90); Red Cell Distribution Width 13.9 % (11.8-14.3); White Blood Cell 13.6 10^3/uL (4.4-10.8)
[2024-02-26] MEDS: cefTRIAXone 1GM/50ML D5W 50 ML IV ONE (06:07)
[2024-02-26 08:00] VITALS: PULSE 93; RESP 22; O2SAT 93
[2024-02-26] MEDS ORDERED: MORPHINE SULFATE INJ 2 MG/ml SYRG IV PRN (16:15)
[2024-02-26] MEDS ORDERED: DOCUSATE SOD 100 MG CAP PO PRN (16:15)
[2024-02-26] MEDS ORDERED: ACETAMINOPHEN 325 MG TAB PO PRN (16:15)
[2024-02-26] MEDS ORDERED: ONDANSETRON HCL 4 MG/2 ML VIAL IV PRN (16:15)
[2024-02-26] MEDS ORDERED: DEXTROSE (50%) 50ML SYRG IV PRN (16:15)
[2024-02-26] MEDS ORDERED: NITROGLYCERIN 0.4 MG SL TAB SL PRN (16:15)
--- NOTE | 2024-02-26 16:24 | DVHHP2 ---
History of Present Illness Reason for Visit: Urinary retention History of Present Illness The patient is a 78-year-old male with multiple past medical history including AFib, hypertension, hyperlipidemia, and diabetes mellitus who presented to [facility] ED with complaint of urinary retention. Patient reports symptoms progressively get worse with hematuria, currently on Colvin catheter at home, being followed by home health nurse. Patient was seen and evaluated in the ED, laboratory data shows WBC 13.6, platelets 173, sodium 135, potassium 4.4, BUN 22, creatinine 1.85, glucose 206, urinalysis positive for urinary tract infection, blood pressure 122/78, heart rate 92, temperature 98.0 F, O2 saturation 94% on oxygen. Patient was started on IV antibiotic regimen Rocephin, please see medication orders section in the computer. On my assessment, patient denied chest pain, no headache, no dizziness, no diaphoresis, currently on oxygen, no abdominal pain, no nausea, no vomiting, no fever, no chills. Patient was admitted for further evaluation and medical management. Past Medical History AFIB, DM, High Lipids, HTN, PE, UTI'S Biliary obstruction, bed bound Past Surgical History Cholecystectomy, Tonsillectomy, Colostomy Family History Reviewed, noncontributory to the management of this case. Past Social History The patient lives at home, denies smoking, alcohol or illicit drugs abuse. Review of Systems Constitutional: Yes: Weakness; No: Fever, Chills, Sweats, Malaise, Other Eyes: No: Pain, Vision change, Conjunctivae inflammation, Eyelid inflammation, Other, Redness ENT: No: Ear pain, Ear discharge, Nose pain, Nose discharge, Nose congestion, Mouth pain, Mouth swelling, Throat pain, Throat swelling, Other Respiratory: No: Cough, Dry, Shortness of breath, SOB with excertion, Wheezing, Hemoptysis, Pleuritic Pain, Sputum, Wheezing, Other Cardiovascular: No: Chest Pain, Palpitations, Orthopnea, Paroxysmal Noc. Dyspnea, Edema, Lt Headedness, Other Gastrointestinal: No: Nausea, Vomiting, Abdominal Pain, Diarrhea, Constipation, Melena, Hematochezia, Other Genitourinary: No Dysuria, No Frequency, No Incontinence; Hematuria; No Retention; Other (Colvin catheter in place) Musculoskeletal: No: other, neck pain, shoulder pain, arm pain, back pain, hand pain, leg pain, foot pain Skin: No: Rash, Lesions, Jaundice, Bruising, Other Neurological: No: Weakness, Numbness, Incoordination, Change in speech, Confusion, Seizures, Other Allergies: Coded Allergies: NO KNOWN ALLERGIES (Unverified , 03/10/21) Medications Current Medications Medications Dose Ordered Sig/Monet Route Start Time Stop Time Status Last Admin Dose Admin Ceftriaxone Sodium 50 ml @ 100 mls/hr DAILY@09 IV 02/27/24 09:00 UNV Hydralazine HCl 10 mg Q6HP PRN IV 02/26/24 16:15 UNV Atorvastatin Calcium 20 mg HS PO 02/26/24 22:00 UNV Apixaban 5 mg BID PO 02/26/24 22:00 UNV Diagnostic Test (Pha) 1 strip ACHS 02/26/24 17:00 UNV Insulin Human Regular HS SC 02/26/24 22:00 UNV Insulin Human Regular AC SC 02/26/24 17:00 UNV Dextrose 50 ml UD PRN IV 02/26/24 16:15 UNV Sodium Chloride 1,000 ml @ 60 mls/hr [id number] IV 02/26/24 16:15 UNV Acetaminophen/ Hydrocodone Bitart 1 tab Q4HP PRN PO 02/26/24 16:15 UNV Ondansetron HCl 4 mg Q4HP PRN IV 02/26/24 16:15 UNV Docusate Sodium 100 mg BIDPRN PRN PO 02/26/24 16:15 UNV Acetaminophen 650 mg Q6HP PRN PO 02/26/24 16:15 UNV Nitroglycerin 0.4 mg Q5MINP PRN SL 02/26/24 16:15 UNV Morphine Sulfate 2 mg Q30M PRN IV 02/26/24 16:15 UNV Exam Vital Signs Vital Signs Date Time Temp Pulse Resp B/P (MAP) Pulse Ox O2 Delivery O2 Flow Rate FiO2 02/26/24 11:06 90 18 123/86 (98) 93 02/26/24 08:00 Nasal Cannula* 2 28 02/26/24 03:28 98.0 98.0 General Appearance: Alert, Oriented X3, Cooperative, No acute distress HEENT: Atraumatic, PERRLA, EOMI, Mucous membr. moist/pink Respiratory: Clear to auscultation, Normal air movement Cardiovascular: Regular rate, Normal S1, Normal S2, No murmurs Abdominal: Normal bowel sounds, Soft, No tenderness, No hepatospenomegaly, No masses Extremities: No clubbing, No cyanosis, No edema, Normal pulses, No tenderness/swelling Skin: No rashes, No breakdown, No significant lesion Neuro: Normal speech, Normal tone, Sensation intact, Cranial nerves 3-12 NL, Reflexes 2+, Other (Generalized weakness) Psych/Mental Status: Mental status NL, Mood NL Labs/Xrays Labs Test 02/26/24 06:38 02/26/24 05:39 02/26/24 05:08 02/26/24 04:42 Range/Units Lactic Acid Level 1.8 0.4-2.0 mmol/L White Blood Count 13.6 H 4.4-10.8 10^3/uL Red Blood Count 6.06 H 4.5-5.90 10^6/uL Hemoglobin 18.2 H 13.5-17.5 g/dL Hematocrit 53.0 41.0-53.0 % Mean Corpuscular Volume 87.4 80.0-100.0 fL Mean Corpuscular Hemoglobin 30.0 28.0-32.0 pg Mean Corpuscular Hemoglobin Concent 34.3 32.0-36.0 g/dL Red Cell Distribution Width 13.9 11.8-14.3 % Platelet Count 173 140-450 10^3/uL Mean Platelet Volume 8.6 6.9-10.8 fL Neutrophils (%) (Auto) 81.4 H 37.0-80.0 % Lymphocytes (%) (Auto) 10.6 10.0-50.0 % Monocytes (%) (Auto) 7.4 0.0-12.0 % Eosinophils (%) (Auto) 0.3 0.0-7.0 % Basophils (%) (Auto) 0.3 0.0-2.0 % Neutrophils # (Auto) 11.1 H 1.6-8.6 10 ^3/uL Lymphocytes # (Auto) 1.4 0.4-5.4 10 ^3/uL Monocytes # (Auto) 1.0 0-1.3 10 ^3/uL Eosinophils # (Auto) 0 0-0.8 10 ^3/uL Basophils # (Auto) 0 0-0.2 10 ^3/uL Nucleated Red Blood Cells 0.0 % Sodium Level 135 L 136-145 mmol/L Potassium Level 4.4 3.5-5.1 mmol/L Chloride Level 110 H 98-107 mmol/L Carbon Dioxide Level 17 L 20-31 mmol/L Anion Gap 8 5-15 Blood Urea Nitrogen 22 9-23 mg/dL Creatinine 1.85 H 0.700-1.30 mg/dL Glomerular Filtration Rate Calc 36 >90 mL/min BUN/Creatinine Ratio 11.9 10.0-20.0 Serum Glucose 206 H 74-106 mg/dL Calcium Level 10.0 8.7-10.4 mg/dL Urine Color Light-brown Yellow Urine Clarity Ex.turbid Clear Urine pH 7.0 5.0-9.0 Urine Specific [place] 1.013 1.001-1.035 Urine Protein 3+ H Negative Urine Ketones Negative Negative Urine Blood 3+ H Negative /uL Urine Nitrite Negative Negative Urine Bilirubin Negative Negative Urine Urobilinogen Normal Negative mg/dL Urine Leukocyte Esterase 3+ Negative /uL Urine RBC 433 0 - 3 /hpf Urine WBC 1616 0 - 3 /hpf Urine WBC Clumps Present None Seen /hpf Urine Squamous Epithelial Cells None seen <5 /hpf Urine Bacteria None seen None Seen /hpf Urine Glucose Normal Normal mg/dL Assessment/Plan Assessment/Plan Urinary retention Acute renal injury Leukocytosis, unspecified UTI (urinary tract infection) Infection and inflammatory reaction due to indwelling urethral catheter, initial encounter Urinary tract infection, site not specified Generalized weakness Metabolic encephalopathy Diabetes mellitus with hyperglycemia Plan 1. Admit to telemetry unit 2. Breathing treatment 3. Pain control management 4. IV antibiotic management 5. Management of fluids and electrolytes 6. Consultation for Urology/hospitalist 7. Diagnostic test chest x-ray 8. DVT prophylaxis on SCDs 9. Repeat labs CBC, CMP in a.m. 10. Home medication reviewed and reconciled 11. Continue with current medical management 12. Treatment plan discussed with patient and RN. Patient verbalized understanding. Plan discussed with: Patient, Spouse ( at bedside), Other (RN) My Orders Orders - GLORIA CORREA DNP Procedure Category Date Status Time Ceftriaxone 1gm/50ml PHA 02/27/24 Logged D5w (Rocephin) 09:00 Hydralazine Injection PHA 02/26/24 Logged (Apresoline Inject 16:15 Atorvastatin (Lipitor) PHA 02/26/24 Logged 22:00 Consistent DIET 02/26/24 Transmitted Carb(Ccho)Diabetes Dinner Apixaban (Eliquis) PHA 02/26/24 Logged 22:00 Glucose Blood PHA 02/26/24 Logged (Accu-Chek Comfort 17:00 Insulin R (Human) PHA 02/26/24 Logged (Insulin R) 22:00 Insulin R (Human) PHA 02/26/24 Logged (Insulin R) 17:00 Dextrose 50% Syringe [facility] 02/26/24 Logged 16:15 Admit ADMIT 02/26/24 Transmitted 16:08 Allergies RADHA 02/26/24 In Process 16:08 Code Status CODE 02/26/24 Transmitted 16:08 Sodium Chloride 0.9% [facility] 02/26/24 Logged 16:15 Oxygen Per Hour RT 02/26/24 Transmitted 16:08 Hydrocodone-Acet [facility] 02/26/24 Logged 5/325mg Tab ([place] 16:15 Ondansetron Hcl [facility] 02/26/24 Logged (Zofran) 16:15 Docusate Sodium [facility] 02/26/24 Logged Capsule (Colace 16:15 Fall Risk Precautions [facility] 02/26/[address] 16:08 Complete Blood Count LAB 02/27/24 Verified 04:00 Comprehensive LAB 02/27/24 Verified Metabolic Panel 04:00 Condition: Serious [facility] 02/26/24 In Process 16:08 Acetaminophen Tablet [facility] 02/26/24 Logged (Tylenol Tablet) 16:15 Sequential [facility] 02/26/24 In Process Compression Device Nitroglycerin [facility] 02/26/24 Logged Sublingual (Ntrostat 16:15 Morphine Sulfate [facility] 02/26/24 Logged Injection 16:15 Notify Of Changes [facility] 02/26/24 In Process From Base 16:08 Supervisor Finishing Department For [facility] 02/26/24 In Process 24 Hours 16:08 Emergency Dysrhythmia [facility] 02/26/24 In Process Protocol 16:08 Rhythm Strips Once [facility] 02/26/24 In Process Every Shift 16:08 Oxygen By Nasal RT 02/26/24 Transmitted Cannula 16:08 Problem List: (1) Urinary retention (2) Leukocytosis, unspecified (3) UTI (urinary tract infection) (4) Generalized weakness (5) Diabetes mellitus with hyperglycemia (6) Urinary tract infection, site not specified (7) Metabolic encephalopathy (8) Acute renal injury (9) Infection and inflammatory reaction due to indwelling urethral catheter, initial encounter Date of Service: Feb 26, 2024 Billing Provider: GLORIA CORREA DNP Common Visit Codes: [id number] INP/OBS CARE (HIGH) GLORIA CORREA DNP Feb 26, 2024 16:23
[2024-02-26] MEDS: ACCU-CHEK COMFORT CURVE STRIP VI SCH (17:04)
[2024-02-26] MEDS: SODIUM CHLORIDE 0.9% 1,000 ML IV SCH (17:08)
[2024-02-26] MEDS: InsuLIN REG 1unit/0.01ml Soln (100units/ml) SC SCH ×2 (17:09→22:37)
[2024-02-26 19:00] VITALS: PULSE 98; RESP 22
[2024-02-26] MEDS ORDERED: APIXABAN 5 MG TAB PO SCH (22:00)
[2024-02-26 22:04] VITALS: BP 129/89; PULSE 93; PULSE 95; RESP 18; RESP 23; TEMP 98.1; O2SAT 93
[2024-02-26] MEDS: ATORVASTATIN 20 MG TAB PO SCH (22:36)
[2024-02-27] VITALS (8 sets, daily range): BP systolic 96–136; BP diastolic 65–91; PULSE 68–106; RESP 19–23; TEMP 97.3–98.4; O2SAT 92–98
[2024-02-27 05:41] LABS: Basophils # (auto) 0.1 10 ^3/uL (0-0.2); Basophils % (auto) 0.9 % (0.0-2.0); Eosinophils # (auto) 0.2 10 ^3/uL (0-0.8); Eosinophils % (auto) 1.9 % (0.0-7.0); Hematocrit 46.4 % (41.0-53.0); Hemoglobin 15.8 g/dL (13.5-17.5); Lymphocytes # (auto) 1.9 10 ^3/uL (0.4-5.4); Lymphocytes % (auto) 23.2 % (10.0-50.0); Mean Corpuscular Hemoglobin 29.9 pg (28.0-32.0); Mean Corpuscular Hgb Conc. 34.1 g/dL (32.0-36.0); Mean Corpuscular Volume 87.5 fL (80.0-100.0); Monocytes # (auto) 0.8 10 ^3/uL (0-1.3); Monocytes % (auto) 10.2 % (0.0-12.0); Neutrophils # (auto) 5.3 10 ^3/uL (1.6-8.6); Neutrophils % (auto) 63.8 % (37.0-80.0); Platelet Count (auto) 154 10^3/uL (140-450); Red Cell Distribution Width 13.9 % (11.8-14.3); White Blood Cell 8.3 10^3/uL (4.4-10.8)
[2024-02-27 05:59] LABS: Alanine Aminotransferase 19 U/L (7-40); Albumin 3.8 g/dL (3.2-4.8); Alkaline Phosphatase 78 U/L (46-116); Anion Gap 9 (5-15); Aspartate Aminotransferase 25 U/L (13-40); BUN/Creatinine Ratio 18.2 (10.0-20.0); Bilirubin, Total 0.7 mg/dL (0.2-1.0); Calcium 9.5 mg/dL (8.7-10.4); Carbon Dioxide 20 mmol/L (20-31); Chloride 109 mmol/L (98-107); Glucose 157 mg/dL (74-106); Potassium 3.7 mmol/L (3.5-5.1); Sodium 138 mmol/L (136-145); Total Protein 6.5 g/dL (5.7-8.2)
[2024-02-27 06:10] LABS: Blood Urea Nitrogen 37 mg/dL (9-23)
[2024-02-27] MEDS: cefTRIAXone 1GM/50ML D5W 50 ML IV SCH (09:45)
--- NOTE | 2024-02-27 17:14 | DVHPN2 ---
Subjective Update -02/26- Patient is feeling better now that there is no more urine leaking around the Colvin as the Colvin was changed in the ED. he is on antibiotics as urine was dirty. His colostomy is functioning normally, bladder scan is negative,. He denies having any shortness of breath but appears to be in distress, taking very short of breath, speaking in single words/short sentences, appears to be belly breathing and he is on oxygen. Urology is consulted, he has worsening KELLY possibly on CKD and Nephrology is being consulted now. We will get imaging to get more objective data. Reviewed: H&P Changes from previous H/P or p: No Changes General: Per HPI Objective Vitals Vital Signs Date Time Temp Pulse Resp B/P (MAP) Pulse Ox O2 Delivery O2 Flow Rate FiO2 02/27/24 16:27 98.4 92 19 96/65 (75) 94 98.4 02/26/24 22:04 Nasal Cannula* 4 36 Intake/Output Intake and Output 02/27/24 07:00 Intake Total 1175 ml Output Total 985 ml Balance 190 ml Intake Oral 425 ml IV Total 750 ml Output Urine Total 985 ml Exam GEN: Healthy appearing, well-developed, appears to be in mild distress, speaking in short sentences/single words, HEENT: NC/AT; MMM. CV: RRR, no m/r/g. LUNGS: CTAB, no w/r/c. Distant breath sounds (poor movement in all lung [place]), belly breathing present but denies having any trouble breathing ABD: Soft, NT/ND, NBS, no masses or organomegaly. Abdominal scar midline with right colostomy bag with green brown feces anywhere. EXT: skin Warm, well perfused. no rashes. No clubbing, cyanosis, or edema. NEURO: Ambulating with no limitations. No focal deficits. A&O x3 -4. Patient is severely weak, unable to roll to the side or sit up in bed by himself Medications Current Medications Medications Dose Ordered Sig/Monet Route Start Time Stop Time Status Last Admin Dose Admin Hydralazine HCl 10 mg Q6HP PRN IV 02/26/24 16:15 Atorvastatin Calcium 20 mg HS PO 02/26/24 22:00 02/26/24 22:36 20 MG Diagnostic Test (Pha) 1 strip ACHS 02/26/24 17:00 02/27/24 06:39 1 STRIP Insulin Human Regular HS SC 02/26/24 22:00 02/26/24 22:37 4 UNITS Insulin Human Regular AC SC 02/26/24 17:00 02/27/24 06:38 3 UNITS Dextrose 50 ml UD PRN IV 02/26/24 16:15 Sodium Chloride 1,000 ml @ 60 mls/hr [id number] IV 02/26/24 16:15 02/27/24 08:55 60 MLS/HR Acetaminophen/ Hydrocodone Bitart 1 tab Q4HP PRN PO 02/26/24 16:15 Ondansetron HCl 4 mg Q4HP PRN IV 02/26/24 16:15 Docusate Sodium 100 mg BIDPRN PRN PO 02/26/24 16:15 Acetaminophen 650 mg Q6HP PRN PO 02/26/24 16:15 Nitroglycerin 0.4 mg Q5MINP PRN SL 02/26/24 16:15 Morphine Sulfate 2 mg Q30M PRN IV 02/26/24 16:15 Cefepime HCl 50 ml @ 12.5 mls/hr Q12HR IV 02/27/24 22:00 UNV Laboratory Results Laboratory Tests 02/27/24 05:04 Chemistry Test 02/27/24 05:04 Albumin 3.8 g/dL (3.2-4.8) Calcium Level 9.5 mg/dL (8.7-10.4) Total Protein 6.5 g/dL (5.7-8.2) LFT Test 02/27/24 05:04 Alanine Aminotransferase (ALT) 19 U/L (7-40) Alkaline Phosphatase 78 U/L (46-116) Aspartate Amino Transferase (AST) 25 U/L (13-40) Total Bilirubin 0.7 mg/dL (0.2-1.0) Urinalysis Test 02/26/24 04:42 Urine Color Light-brown (Yellow) Urine Clarity Ex.turbid (Clear) Urine pH 7.0 (5.0-9.0) Urine Specific [place] 1.013 (1.001-1.035) Urine Protein 3+ (Negative) H Urine Ketones Negative (Negative) Urine Blood 3+ /uL (Negative) H Urine Nitrite Negative (Negative) Urine Bilirubin Negative (Negative) Urine Urobilinogen Normal mg/dL (Negative) Urine Leukocyte Esterase 3+ /uL (Negative) Urine RBC 433 /hpf (0 - 3) Urine WBC 1616 /hpf (0 - 3) Urine WBC Clumps Present /hpf (None Seen) Urine Squamous Epithelial Cells None seen /hpf (<5) Urine Bacteria None seen /hpf (None Seen) Urine Glucose Normal mg/dL (Normal) Microbiology Microbiology Date/Time Source Procedure Growth Status 02/26/24 04:42 Urine - Colvin Port Urine Culture - Preliminary Resulted Labs and/or images reviewed: Labs reviewed by me, Image(s) reviewed by me Assessment/Plan Assessment/Plan -02/26- Patient is feeling better now that there is no more urine leaking around the Colvin as the Colvin was changed in the ED. he is on antibiotics as urine was dirty. His colostomy is functioning normally, bladder scan is negative,. He denies having any shortness of breath but appears to be in distress, taking very short of breath, speaking in single words/short sentences, appears to be belly breathing and he is on oxygen. Urology is consulted, he has worsening KELLY possibly on CKD and Nephrology is being consulted now. We will get imaging to get more objective data. Urinary obstruction UTI/cystitis sepsis Leukocytosis Acute Complicated cystitis KELLY; KELLY on CKD possible. -Patient has chronic Colvin, unknown reason. -Patient has KELLY, possibly on CKD; creatinine trending up to 2 CT pending We will trial fluids avoid nephrotoxic medications urology consulted; maintain Colvin nephrology consulted Shortness of breaths Belly breathing Acute Hypoxemic respiratory failure -Patient is speaking in short sentences, belly breathing, on oxygen (no history of home oxygen) - possilby from pain vs infection - evaluate with cxr. - consider CT chest - may need bipap overnight if starts having SOB AFib Hypertension Hyperlipidemia -Continue home meds Type 2 diabetes -Accu-Cheks q.a.c./HS, apply mild SSI Plan discussed with: Patient My Orders Orders - TRACY OLEARY MD Procedure Category Date Status Time Urine Bacterial ADALBERTO 02/27/24 In Process Culture 10:18 Ct Ab Pel Wo Con-No CT 02/27/24 Logged Oral Or Iv 16:51 *[facility]. [facility] CONS 02/27/24 Transmitted -[place] 16:55 Urine Creatinine LAB 02/28/24 Verified 04:00 Urine Sodium LAB 02/28/24 Verified 04:00 Cefepime 1gm/ 50ml PHA 02/27/24 Logged (Maxipime 1gm/50ml) 22:00 Complete Blood Count LAB 02/28/24 Verified 04:00 Comprehensive LAB 02/28/24 Verified Metabolic Panel 04:00 Ciprofloxacin 0.3% PHA 02/27/24 Verified Opthalmic (Cipro Opth 22:00 Date of Service: Feb 27, 2024 Billing Provider: TRACY OLEARY MD Common Visit Codes: [id number] INP/OBS CARE(HIGH) TRACY OLEARY MD Feb 27, 2024 17:14
--- NOTE | 2024-02-27 17:51 | DVH ---
Exam: CT CT AB PEL WO CON-NO ORAL OR IV History: urinary obs with KELLY. eval bladder, ureter, kidney obstructn Comparison Study: CT ABD PELVIS WO CONTRAST on DOS: 03/17/22 Technique: Multidetector spiral CT of the abdomen and pelvis was performed from lung bases to pubic symphysis. Imaging was performed without IV contrast. Axial, coronal and sagittal multiplanar reform ats were obtained from the axial data set by the technologist. Radiation dose : Abdomen/Pelvis: CTDIvol 23 mGy, DLP 1535.83 mGy*cm. Findings: Evaluation of solid organs is limited due to lack of intravenous contrast use. Lung Bases: Atelectasis and consolidation in the lung bases. Liver: Hepatic cysts. Gallbladder and biliary Tree: Gallbladder is surgically absent. Spleen: Unremarkable Pancreas: Coarse calcification in the head of the pancreas. Adrenal Glands: Unremarkable Kidneys: Left upper pole renal calculus measuring up to 3 mm. Left renal cysts. No hydronephrosis. Bladder: Colvin catheter is malpositioned with balloon inflated in the prostate. Catheter does not e nter the bladder. Bladder wall thickening. Small amount of air in the bladder. Bowel: The stomach is grossly normal in appearance. Postsurgical changes in the colon. Right lower qu adrant ostomy. No evidence of obstruction. The appendix is not visualized; however, no secondary fin dings of acute appendicitis identified. Ascites: Absent Lymphadenopathy: No mesenteric, retroperitoneal or periportal lymphadenopathy. Abdominal wall and Mesentery: Unremarkable. Vasculature: The visualized abdominal aorta is normal in size and caliber. Evaluation of abdominal a nd pelvic vessels is limited due to lack of intravenous contrast. Pelvic Organs: Prostate is enlarged. Musculoskeletal: No aggressive focal bony lesions, acute fractures or dislocation. IMPRESSION: 1. Colvin catheter is malpositioned with balloon inflated in the prostate. Tip of the catheter does n ot enter the bladder. Replacement is recommended. 2. Hepatic and left renal cysts. Left renal calculus. Right lower quadrant ostomy. Prostatomegaly. Radiation optimization: All CT scans at this facility use at least one of these dose optimization janes hniques: Automated exposure control mA and/or kV adjustment per patient size (includes targeted exams where dose is matched to clinical indication) or iterative reconstruction. HS:Y
[2024-02-27] MEDS: CEFEPIME 1GM/ 50ML 50 ML IV SCH (21:14)
[2024-02-27] MEDS: CIPROFLOXACIN 0.3%OPTH(EYE) SOL 5ML LEFTEYE SCH (22:00)
[2024-02-28] VITALS (8 sets, daily range): BP systolic 115–145; BP diastolic 71–88; PULSE 75–99; RESP 16–22; TEMP 97.9–99.1; O2SAT 94–98
[2024-02-28 05:41] LABS: Basophils # (auto) 0 10 ^3/uL (0-0.2); Basophils % (auto) 0.6 % (0.0-2.0); Eosinophils # (auto) 0.2 10 ^3/uL (0-0.8); Eosinophils % (auto) 2.9 % (0.0-7.0); Hematocrit 43.4 % (41.0-53.0); Hemoglobin 14.7 g/dL (13.5-17.5); Lymphocytes # (auto) 1.7 10 ^3/uL (0.4-5.4); Lymphocytes % (auto) 24.9 % (10.0-50.0); Mean Corpuscular Hemoglobin 29.8 pg (28.0-32.0); Mean Corpuscular Hgb Conc. 33.7 g/dL (32.0-36.0); Mean Corpuscular Volume 88.4 fL (80.0-100.0); Monocytes # (auto) 0.7 10 ^3/uL (0-1.3); Monocytes % (auto) 10.2 % (0.0-12.0); Neutrophils # (auto) 4.1 10 ^3/uL (1.6-8.6); Neutrophils % (auto) 61.4 % (37.0-80.0); Platelet Count (auto) 144 10^3/uL (140-450); Red Blood Cells 4.91 10^6/uL (4.5-5.90); Red Cell Distribution Width 13.8 % (11.8-14.3); White Blood Cell 6.6 10^3/uL (4.4-10.8)
[2024-02-28 05:44] LABS: Alanine Aminotransferase 17 U/L (7-40); Albumin 3.6 g/dL (3.2-4.8); Alkaline Phosphatase 71 U/L (46-116); Anion Gap 11 (5-15); Aspartate Aminotransferase 17 U/L (13-40); BUN/Creatinine Ratio 17.4 (10.0-20.0); Bilirubin, Total 0.6 mg/dL (0.2-1.0); Blood Urea Nitrogen 31 mg/dL (9-23); Calcium 9.2 mg/dL (8.7-10.4); Carbon Dioxide 19 mmol/L (20-31); Chloride 110 mmol/L (98-107); Glucose 134 mg/dL (74-106); Potassium 3.6 mmol/L (3.5-5.1); Sodium 140 mmol/L (136-145)
[2024-02-28 07:40] LABS: Creatinine, Urine 92.76 mg/dL (30.0-125.0)
[2024-02-28 09:30] LABS: Hepatitis B Surface Antigen Negative (Negative)
[2024-02-28 09:52] LABS: Hepatitis C Antibody Negative (Negative)
[2024-02-28] MEDS: SODIUM CHLORIDE 0.9% 500 ML IV ONE (10:20)
--- NOTE | 2024-02-28 14:21 | DVHINCON2 ---
Date of service: Feb 28, 2024 Referring Physician Hospitalist Reason for Consultation Acute kidney injury History of Present Illness 78-year-old white male who received medical care from [place] Past medical history of atrial fibrillation, pulmonary embolism on anticoagulation, hypertension, hyperlipidemia, BPH with history of prostate procedure who unfortunately still had chronic urinary retention and against Colvin catheter exchanges every three weeks presented to the hospital after Colvin catheter was leaking and not draining. Nephrology was consulted for this admission due to elevated creatinine level. Past Medical History As above Allergies: Coded Allergies: NO KNOWN ALLERGIES (Unverified , 03/10/21) Home Meds Active Scripts Sulfamethoxazole W/Trimethopri (Bactrim Ds Tablet) 1 Tab Tb, 1 TAB PO BID for 7 Days, #14 TAB Prov:LUDA URIARTE 11/04/23 Ciprofloxacin Hcl (Cipro) 500 Mg Tab, 1 TAB PO BID, #14 TAB Prov:DUKE JOLLY MD 03/31/22 Ondansetron (Zofran) 4 Mg Tab, 1 TAB PO Q6HR, #20 TAB Prov:DUKE JOLLY MD 03/31/22 Simethicone (Simethicone) 80 Mg Chw, 1 TAB PO Q8HR, #20 TAB Prov:ARPAN LEBLANC MD 01/24/22 Metoclopramide Hcl (Reglan) 10 Mg Tab, 10 MG PO BID, #20 TAB Prov:ARPAN LEBLANC MD 01/24/22 Coenzyme Q10 (Coq-10) 100 Mg Cap, 100 MG PO HS, #30 CAP Prov:CHONG NOBLES 06/28/21 Reported Medications Amlodipine Besylate (Amlodipine Besylate) 5 Mg Tab, 1 TAB PO DAILY 03/19/22 Clonidine Hydrochloride (Clonidine Hcl) 0.1 Mg/24 Hr Dis, 1 PATCH TOP QWEEKLY 03/19/22 Potassium Chloride (K-Tabs) 10 Meq Tab, 1 TAB PO DAILY 03/19/22 Hydralazine Hcl (Hydralazine Hcl) 10 Mg Tab, 1 TAB PO BID 03/19/22 Lisinopril (Lisinopril) 40 Mg Tab, 1 TAB PO DAILY 03/19/22 Tocopheryl Acetate, Dl-Alpha (Vitamin E) 180 Mg Cap, 180 MG PO DAILY, CAP 06/28/21 Dulaglutide (Trulicity) 1.5 Mg/0.5 Ml Inj, 1.5 MG SC QWEEKLY, INJ 06/28/21 Glipizide (Glipizide) 5 Mg Tab, 1 TAB PO DAILY 06/28/21 Canagliflozin (INVOKANA) 100 Mg Tab, 1 TAB PO QAM 06/28/21 Atorvastatin Calcium (ATORVASTATIN CALCIUM) 20 Mg Tab, 1 TAB PO HS 06/28/21 Latanoprost (LATANOPROST) 0.005 % Coni, 1 DROP EACHEYE HS 06/28/21 Cholecalciferol (VITAMIN D) 5,000 Unit Tab, 5000 UNIT OR DAILY, TAB 06/28/21 Amlodipine Besylate (Amlodipine Besylate) 10 Mg Tab, 1 TAB PO DAILY, #30 TAB 5 Refills 06/28/21 Metoprolol Tartrate (Metoprolol Tartrate) 50 Mg Tab, 50 MG PO BID for 30 Days, MG 03/10/21 Metformin Hydrochloride (Metformin Hcl) 500 Mg Tab, 500 MG PO IBID for 30 Days, MG 03/10/21 Losartan Potassium (Losartan Potassium) 100 Mg Tab, 100 MG PO DAILY for 30 Days, MG 03/10/21 Finasteride (Finasteride) 5 Mg Tab, 5 MG PO DAILY for 30 Days, MG 03/10/21 Apixaban Base (ELIQUIS) 5 Mg Tab, 2.5 MG PO BID, TAB 03/10/21 Current Medications Current Medications Medications (Trade) Dose Ordered Sig/Monet Route PRN Reason Start Time Stop Time Status Last Admin Cefepime HCl 50 ml @ 12.5 mls/hr Q12HR IV 02/27/24 22:00 02/28/24 09:38 Ciprofloxacin HCl (Cipro Opthalmic) 1 drop TID LEFTEYE 02/27/24 22:00 03/03/24 22:30 Family History: Diabetes mellitus FH: heart attack G8 FATHER Review of Systems Urinary retention H&P Exam Vital Signs/I&O Vital Sign Date Time Temp Pulse Resp B/P (MAP) Pulse Ox O2 Delivery O2 Flow Rate FiO2 02/28/24 11:43 98.0 98 16 145/71 (95) 94 98.0 02/28/24 08:00 Nasal Cannula* 4 36 Intake and Output 02/27/24 02/28/24 19:00 07:00 Intake Total 350 ml 610 ml Output Total 250 ml 600 ml Balance 100 ml 10 ml Intake Oral 300 ml 200 ml IV Total 50 ml 410 ml Output Urine Total 250 ml 600 ml # Bowel Movements 1 1 Physical Exam Elderly white male Not in overt distress A alert oriented able to answer questions No JVD Abdomen is soft No pitting edema Colvin catheter in place with urine noted Labs/Diagnostic Data Labs/Diagnostic Data Laboratory Tests Test 02/28/24 11:20 02/28/24 06:50 02/28/24 05:35 02/28/24 04:49 Range/Units POC Glucose 198 H 148 H 70-106 mg/dl Urine Creatinine 92.76 30.0-125.0 mg/dL Urine Sodium 22 L 40-220 mmol/L White Blood Count 6.6 4.4-10.8 10^3/uL Red Blood Count 4.91 4.5-5.90 10^6/uL Hemoglobin 14.7 13.5-17.5 g/dL Hematocrit 43.4 41.0-53.0 % Mean Corpuscular Volume 88.4 80.0-100.0 fL Mean Corpuscular Hemoglobin 29.8 28.0-32.0 pg Mean Corpuscular Hemoglobin Concent 33.7 32.0-36.0 g/dL Red Cell Distribution Width 13.8 11.8-14.3 % Platelet Count 144 140-450 10^3/uL Mean Platelet Volume 8.5 6.9-10.8 fL Neutrophils (%) (Auto) 61.4 37.0-80.0 % Lymphocytes (%) (Auto) 24.9 10.0-50.0 % Monocytes (%) (Auto) 10.2 0.0-12.0 % Eosinophils (%) (Auto) 2.9 0.0-7.0 % Basophils (%) (Auto) 0.6 0.0-2.0 % Neutrophils # (Auto) 4.1 1.6-8.6 10 ^3/uL Lymphocytes # (Auto) 1.7 0.4-5.4 10 ^3/uL Monocytes # (Auto) 0.7 0-1.3 10 ^3/uL Eosinophils # (Auto) 0.2 0-0.8 10 ^3/uL Basophils # (Auto) 0 0-0.2 10 ^3/uL Nucleated Red Blood Cells 0.0 % Sodium Level 140 136-145 mmol/L Potassium Level 3.6 3.5-5.1 mmol/L Chloride Level 110 H 98-107 mmol/L Carbon Dioxide Level 19 L 20-31 mmol/L Anion Gap 11 5-15 Blood Urea Nitrogen 31 H 9-23 mg/dL Creatinine 1.78 H 0.700-1.30 mg/dL Glomerular Filtration Rate Calc 38 >90 mL/min BUN/Creatinine Ratio 17.4 10.0-20.0 Serum Glucose 134 H 74-106 mg/dL Calcium Level 9.2 8.7-10.4 mg/dL Total Bilirubin 0.6 0.2-1.0 mg/dL Aspartate Amino Transferase (AST) 17 13-40 U/L Alanine Aminotransferase (ALT) 17 7-40 U/L Alkaline Phosphatase 71 46-116 U/L Total Protein 6.0 5.7-8.2 g/dL Albumin 3.6 3.2-4.8 g/dL Test 02/27/24 21:17 02/27/24 17:59 02/27/24 12:21 02/27/24 06:29 Range/Units POC Glucose 168 H 179 H 149 H 161 H 70-106 mg/dl Test 02/27/24 05:04 02/26/24 22:25 02/26/24 17:03 02/26/24 06:38 Range/Units White Blood Count 8.3 # 4.4-10.8 10^3/uL Red Blood Count 5.30 4.5-5.90 10^6/uL Hemoglobin 15.8 13.5-17.5 g/dL Hematocrit 46.4 # 41.0-53.0 % Mean Corpuscular Volume 87.5 80.0-100.0 fL Mean Corpuscular Hemoglobin 29.9 28.0-32.0 pg Mean Corpuscular Hemoglobin Concent 34.1 32.0-36.0 g/dL Red Cell Distribution Width 13.9 11.8-14.3 % Platelet Count 154 140-450 10^3/uL Mean Platelet Volume 8.6 6.9-10.8 fL Neutrophils (%) (Auto) 63.8 37.0-80.0 % Lymphocytes (%) (Auto) 23.2 10.0-50.0 % Monocytes (%) (Auto) 10.2 0.0-12.0 % Eosinophils (%) (Auto) 1.9 0.0-7.0 % Basophils (%) (Auto) 0.9 0.0-2.0 % Neutrophils # (Auto) 5.3 1.6-8.6 10 ^3/uL Lymphocytes # (Auto) 1.9 0.4-5.4 10 ^3/uL Monocytes # (Auto) 0.8 0-1.3 10 ^3/uL Eosinophils # (Auto) 0.2 0-0.8 10 ^3/uL Basophils # (Auto) 0.1 0-0.2 10 ^3/uL Nucleated Red Blood Cells 0.0 % Sodium Level 138 136-145 mmol/L Potassium Level 3.7 3.5-5.1 mmol/L Chloride Level 109 H 98-107 mmol/L Carbon Dioxide Level 20 20-31 mmol/L Anion Gap 9 5-15 Blood Urea Nitrogen 37 #H 9-23 mg/dL Creatinine 2.03 H 0.700-1.30 mg/dL Glomerular Filtration Rate Calc 33 >90 mL/min BUN/Creatinine Ratio 18.2 10.0-20.0 Serum Glucose 157 H 74-106 mg/dL Calcium Level 9.5 8.7-10.4 mg/dL Total Bilirubin 0.7 0.2-1.0 mg/dL Aspartate Amino Transferase (AST) 25 13-40 U/L Alanine Aminotransferase (ALT) 19 7-40 U/L Alkaline Phosphatase 78 46-116 U/L Total Protein 6.5 5.7-8.2 g/dL Albumin 3.8 3.2-4.8 g/dL Hepatitis B Surface Antigen Negative Negative Hepatitis C Antibody Negative Negative POC Glucose 224 H 177 H 70-106 mg/dl Lactic Acid Level 1.8 0.4-2.0 mmol/L Test 02/26/24 05:39 02/26/24 05:08 02/26/24 04:42 Range/Units White Blood Count 13.6 H 4.4-10.8 10^3/uL Red Blood Count 6.06 H 4.5-5.90 10^6/uL Hemoglobin 18.2 H 13.5-17.5 g/dL Hematocrit 53.0 41.0-53.0 % Mean Corpuscular Volume 87.4 80.0-100.0 fL Mean Corpuscular Hemoglobin 30.0 28.0-32.0 pg Mean Corpuscular Hemoglobin Concent 34.3 32.0-36.0 g/dL Red Cell Distribution Width 13.9 11.8-14.3 % Platelet Count 173 140-450 10^3/uL Mean Platelet Volume 8.6 6.9-10.8 fL Neutrophils (%) (Auto) 81.4 H 37.0-80.0 % Lymphocytes (%) (Auto) 10.6 10.0-50.0 % Monocytes (%) (Auto) 7.4 0.0-12.0 % Eosinophils (%) (Auto) 0.3 0.0-7.0 % Basophils (%) (Auto) 0.3 0.0-2.0 % Neutrophils # (Auto) 11.1 H 1.6-8.6 10 ^3/uL Lymphocytes # (Auto) 1.4 0.4-5.4 10 ^3/uL Monocytes # (Auto) 1.0 0-1.3 10 ^3/uL Eosinophils # (Auto) 0 0-0.8 10 ^3/uL Basophils # (Auto) 0 0-0.2 10 ^3/uL Nucleated Red Blood Cells 0.0 % Sodium Level 135 L 136-145 mmol/L Potassium Level 4.4 3.5-5.1 mmol/L Chloride Level 110 H 98-107 mmol/L Carbon Dioxide Level 17 L 20-31 mmol/L Anion Gap 8 5-15 Blood Urea Nitrogen 22 9-23 mg/dL Creatinine 1.85 H 0.700-1.30 mg/dL Glomerular Filtration Rate Calc 36 >90 mL/min BUN/Creatinine Ratio 11.9 10.0-20.0 Serum Glucose 206 H 74-106 mg/dL Calcium Level 10.0 8.7-10.4 mg/dL Urine Color Light-brown Yellow Urine Clarity Ex.turbid Clear Urine pH 7.0 5.0-9.0 Urine Specific [place] 1.013 1.001-1.035 Urine Protein 3+ H Negative Urine Ketones Negative Negative Urine Blood 3+ H Negative /uL Urine Nitrite Negative Negative Urine Bilirubin Negative Negative Urine Urobilinogen Normal Negative mg/dL Urine Leukocyte Esterase 3+ Negative /uL Urine RBC 433 0 - 3 /hpf Urine WBC 1616 0 - 3 /hpf Urine WBC Clumps Present None Seen /hpf Urine Squamous Epithelial Cells None seen <5 /hpf Urine Bacteria None seen None Seen /hpf Urine Glucose Normal Normal mg/dL Assessment Acute kidney injury multifactorial likely in the setting of Colvin catheter male malposition and urinary tract infection Chronic urinary retention in the setting of BPH Sepsis secondary to urinary tract infection CT scan showed Colvin catheter tip was inflated in the prostate. After advisement and readjustment patient now has urine that is flowing Renal functions improving Agree with IV antibiotics Recommend gentle IV fluids to increase urinary output. Rest of medical care as per primary medical team. Patient resume the rest of his medical care at the [facility] upon discharge Plan discussed with: Spouse LISA BEAR MD Feb 28, 2024 14:21
[2024-02-28] MEDS: SODIUM CHLORIDE 0.9% 1,000 ML IV ONE (14:51)
--- NOTE | 2024-02-28 17:04 | DVHINCON2 ---
Date of service: Feb 28, 2024 Referring Physician Hospitalist Reason for Consultation Gross hematuria History of Present Illness 78-year-old male with multiple past medical history including AFib, hypertension, hyperlipidemia, and diabetes mellitus who presented to [facility] ED with complaint of urinary retention. Colvin catheter was inserted but was found to be inflated in the prostatic urethra resulting in gross hematuria. Catheter was repositioned by the nursing staff and the urine is now clear. Patient was seen and evaluated in the ED, laboratory data shows WBC 13.6, platelets 173, sodium 135, potassium 4.4, BUN 22, creatinine 1.85, glucose 206, urinalysis positive for urinary tract infection, blood pressure 122/78, heart rate 92, temperature 98.0 F, O2 saturation 94% on oxygen. Patient was started on IV antibiotic regimen Rocephin, please see medication orders section in the computer. Past Medical History AFIB, DM, High Lipids, HTN, PE, UTI'S, BPH Biliary obstruction, bed bound Past Surgical History Cholecystectomy, Tonsillectomy, Colostomy Family History: Diabetes mellitus FH: heart attack G8 FATHER Allergies: Coded Allergies: NO KNOWN ALLERGIES (Unverified , 03/10/21) Home Meds Active Scripts Sulfamethoxazole W/Trimethopri (Bactrim Ds Tablet) 1 Tab Tb, 1 TAB PO BID for 7 Days, #14 TAB Prov:LUDA URIARTE PAC 11/04/23 Ciprofloxacin Hcl (Cipro) 500 Mg Tab, 1 TAB PO BID, #14 TAB Prov:DUKE JOLLY MD 03/31/22 Ondansetron (Zofran) 4 Mg Tab, 1 TAB PO Q6HR, #20 TAB Prov:DUKE JOLLY MD 03/31/22 Simethicone (Simethicone) 80 Mg Chw, 1 TAB PO Q8HR, #20 TAB Prov:ARPAN LEBLANC MD 01/24/22 Metoclopramide Hcl (Reglan) 10 Mg Tab, 10 MG PO BID, #20 TAB Prov:ARPAN LEBLANC MD 01/24/22 Coenzyme Q10 (Coq-10) 100 Mg Cap, 100 MG PO HS, #30 CAP Prov:CHONG NOBLES 06/28/21 Reported Medications Amlodipine Besylate (Amlodipine Besylate) 5 Mg Tab, 1 TAB PO DAILY 03/19/22 Clonidine Hydrochloride (Clonidine Hcl) 0.1 Mg/24 Hr Dis, 1 PATCH TOP QWEEKLY 03/19/22 Potassium Chloride (K-Tabs) 10 Meq Tab, 1 TAB PO DAILY 03/19/22 Hydralazine Hcl (Hydralazine Hcl) 10 Mg Tab, 1 TAB PO BID 03/19/22 Lisinopril (Lisinopril) 40 Mg Tab, 1 TAB PO DAILY 03/19/22 Tocopheryl Acetate, Dl-Alpha (Vitamin E) 180 Mg Cap, 180 MG PO DAILY, CAP 06/28/21 Dulaglutide (Trulicity) 1.5 Mg/0.5 Ml Inj, 1.5 MG SC QWEEKLY, INJ 06/28/21 Glipizide (Glipizide) 5 Mg Tab, 1 TAB PO DAILY 06/28/21 Canagliflozin (INVOKANA) 100 Mg Tab, 1 TAB PO QAM 06/28/21 Atorvastatin Calcium (ATORVASTATIN CALCIUM) 20 Mg Tab, 1 TAB PO HS 06/28/21 Latanoprost (LATANOPROST) 0.005 % Coni, 1 DROP EACHEYE HS 06/28/21 Cholecalciferol (VITAMIN D) 5,000 Unit Tab, 5000 UNIT OR DAILY, TAB 06/28/21 Amlodipine Besylate (Amlodipine Besylate) 10 Mg Tab, 1 TAB PO DAILY, #30 TAB 5 Refills 06/28/21 Metoprolol Tartrate (Metoprolol Tartrate) 50 Mg Tab, 50 MG PO BID for 30 Days, MG 03/10/21 Metformin Hydrochloride (Metformin Hcl) 500 Mg Tab, 500 MG PO IBID for 30 Days, MG 03/10/21 Losartan Potassium (Losartan Potassium) 100 Mg Tab, 100 MG PO DAILY for 30 Days, MG 03/10/21 Finasteride (Finasteride) 5 Mg Tab, 5 MG PO DAILY for 30 Days, MG 03/10/21 Apixaban Base (ELIQUIS) 5 Mg Tab, 2.5 MG PO BID, TAB 03/10/21 Current Medications Current Medications Medications (Trade) Dose Ordered Sig/Monet Route PRN Reason Start Time Stop Time Status Last Admin Cefepime HCl 50 ml @ 12.5 mls/hr Q12HR IV 02/27/24 22:00 02/28/24 09:38 Ciprofloxacin HCl (Cipro Opthalmic) 1 drop TID LEFTEYE 02/27/24 22:00 03/03/24 22:30 Review of Systems Constitutional: Yes: Weakness; No: Fever, Chills, Sweats, Malaise, Other Eyes: No: Pain, Vision change, Conjunctivae inflammation, Eyelid inflammation, Other, Redness ENT: No: Ear pain, Ear discharge, Nose pain, Nose discharge, Nose congestion, Mouth pain, Mouth swelling, Throat pain, Throat swelling, Other Respiratory: No: Cough, Dry, Shortness of breath, SOB with excertion, Wheezing, Hemoptysis, Pleuritic Pain, Sputum, Wheezing, Other Cardiovascular: No: Chest Pain, Palpitations, Orthopnea, Paroxysmal Noc. Dyspnea, Edema, Lt Headedness, Other Gastrointestinal: No: Nausea, Vomiting, Abdominal Pain, Diarrhea, Constipation, Melena, Hematochezia, Other Genitourinary: No Dysuria, No Frequency, No Incontinence; Hematuria; No Retention; Other (Colvin catheter in place) Musculoskeletal: No: other, neck pain, shoulder pain, arm pain, back pain, hand pain, leg pain, foot pain Skin: No: Rash, Lesions, Jaundice, Bruising, Other Neurological: No: Weakness, Numbness, Incoordination, Change in speech, Confusion, Seizures, Other Allergies: Coded Allergies: NO KNOWN ALLERGIES (Unverified , 03/10/21) Medications Current Medications Medications Dose Ordered Sig/Monet Route Start Time Stop Time Status Last Admin Dose Admin Ceftriaxone Sodium 50 ml @ 100 mls/hr DAILY@09 IV 02/27/24 09:00 UNV Hydralazine HCl 10 mg Q6HP PRN IV 02/26/24 16:15 UNV Atorvastatin Calcium 20 mg HS PO 02/26/24 22:00 UNV Apixaban 5 mg BID PO 02/26/24 22:00 UNV Diagnostic Test (Pha) 1 strip ACHS 02/26/24 17:00 UNV Insulin Human Regular HS SC 02/26/24 22:00 UNV Insulin Human Regular AC SC 02/26/24 17:00 UNV Dextrose 50 ml UD PRN IV 02/26/24 16:15 UNV Sodium Chloride 1,000 ml @ 60 mls/hr [id number] IV 02/26/24 16:15 UNV Acetaminophen/ Hydrocodone Bitart 1 tab Q4HP PRN PO 02/26/24 16:15 UNV Ondansetron HCl 4 mg Q4HP PRN IV 02/26/24 16:15 UNV Docusate Sodium 100 mg BIDPRN PRN PO 02/26/24 16:15 UNV Acetaminophen 650 mg Q6HP PRN PO 02/26/24 16:15 UNV Nitroglycerin 0.4 mg Q5MINP PRN SL 02/26/24 16:15 UNV Morphine Sulfate 2 mg Q30M PRN IV 02/26/24 16:15 UNV Vital Signs Vital Signs Date Time Temp Pulse Resp B/P (MAP) Pulse Ox O2 Delivery O2 Flow Rate FiO2 02/28/24 16:18 99.1 97 17 131/88 (102) 98 99.1 02/28/24 08:00 Nasal Cannula* 4 36 Physical Exam Vital Signs Date Time Temp Pulse Resp B/P (MAP) Pulse Ox O2 Delivery O2 Flow Rate FiO2 02/26/24 11:06 90 18 123/86 (98) 93 02/26/24 08:00 Nasal Cannula* 2 28 02/26/24 03:28 98.0 98.0 General Appearance: Alert, Oriented X3, Cooperative, No acute distress HEENT: Atraumatic, PERRLA, EOMI, Mucous membr. moist/pink Respiratory: Clear to auscultation, Normal air movement Cardiovascular: Regular rate, Normal S1, Normal S2, No murmurs Abdominal: Normal bowel sounds, Soft, No tenderness, No hepatospenomegaly, No masses Extremities: No clubbing, No cyanosis, No edema, Normal pulses, No tenderness/swelling Skin: No rashes, No breakdown, No significant lesion Neuro: Normal speech, Normal tone, Sensation intact, Cranial nerves 3-12 NL, Reflexes 2+, Other (Generalized weakness) Psych/Mental Status: Mental status NL, Mood NL Labs/Diagnostic Data Labs Test 02/28/24 11:20 02/28/24 06:50 02/28/24 04:49 02/27/24 05:04 Range/Units POC Glucose 198 H 70-106 mg/dl Urine Creatinine 92.76 30.0-125.0 mg/dL Urine Sodium 22 L 40-220 mmol/L White Blood Count 6.6 4.4-10.8 10^3/uL Red Blood Count 4.91 4.5-5.90 10^6/uL Hemoglobin 14.7 13.5-17.5 g/dL Hematocrit 43.4 41.0-53.0 % Mean Corpuscular Volume 88.4 80.0-100.0 fL Mean Corpuscular Hemoglobin 29.8 28.0-32.0 pg Mean Corpuscular Hemoglobin Concent 33.7 32.0-36.0 g/dL Red Cell Distribution Width 13.8 11.8-14.3 % Platelet Count 144 140-450 10^3/uL Mean Platelet Volume 8.5 6.9-10.8 fL Neutrophils (%) (Auto) 61.4 37.0-80.0 % Lymphocytes (%) (Auto) 24.9 10.0-50.0 % Monocytes (%) (Auto) 10.2 0.0-12.0 % Eosinophils (%) (Auto) 2.9 0.0-7.0 % Basophils (%) (Auto) 0.6 0.0-2.0 % Neutrophils # (Auto) 4.1 1.6-8.6 10 ^3/uL Lymphocytes # (Auto) 1.7 0.4-5.4 10 ^3/uL Monocytes # (Auto) 0.7 0-1.3 10 ^3/uL Eosinophils # (Auto) 0.2 0-0.8 10 ^3/uL Basophils # (Auto) 0 0-0.2 10 ^3/uL Nucleated Red Blood Cells 0.0 % Sodium Level 140 136-145 mmol/L Potassium Level 3.6 3.5-5.1 mmol/L Chloride Level 110 H 98-107 mmol/L Carbon Dioxide Level 19 L 20-31 mmol/L Anion Gap 11 5-15 Blood Urea Nitrogen 31 H 9-23 mg/dL Creatinine 1.78 H 0.700-1.30 mg/dL Glomerular Filtration Rate Calc 38 >90 mL/min BUN/Creatinine Ratio 17.4 10.0-20.0 Serum Glucose 134 H 74-106 mg/dL Calcium Level 9.2 8.7-10.4 mg/dL Total Bilirubin 0.6 0.2-1.0 mg/dL Aspartate Amino Transferase (AST) 17 13-40 U/L Alanine Aminotransferase (ALT) 17 7-40 U/L Alkaline Phosphatase 71 46-116 U/L Total Protein 6.0 5.7-8.2 g/dL Albumin 3.6 3.2-4.8 g/dL Hepatitis B Surface Antigen Negative Negative Hepatitis C Antibody Negative Negative Test 02/26/24 06:38 02/26/24 04:42 Range/Units Lactic Acid Level 1.8 0.4-2.0 mmol/L Urine Color Light-brown Yellow Urine Clarity Ex.turbid Clear Urine pH 7.0 5.0-9.0 Urine Specific [place] 1.013 1.001-1.035 Urine Protein 3+ H Negative Urine Ketones Negative Negative Urine Blood 3+ H Negative /uL Urine Nitrite Negative Negative Urine Bilirubin Negative Negative Urine Urobilinogen Normal Negative mg/dL Urine Leukocyte Esterase 3+ Negative /uL Urine RBC 433 0 - 3 /hpf Urine WBC 1616 0 - 3 /hpf Urine WBC Clumps Present None Seen /hpf Urine Squamous Epithelial Cells None seen <5 /hpf Urine Bacteria None seen None Seen /hpf Urine Glucose Normal Normal mg/dL Microbiology Date/Time Source Procedure Growth Status 02/27/24 12:15 Urine - Colvin Port Urine Culture - Preliminary Resulted Assessment Urinary retention Gross hematuria secondary to malpositioned Colvin catheter, resolved BPH Plan/Recommendation Colvin catheter to be changed on a monthly basis Outpatient cystoscopy to be arranged PSA level Plan discussed with: Patient, Other OLAYINKA SANCHES MD Feb 28, 2024 17:04
--- NOTE | 2024-02-28 18:30 | DVHPN2 ---
Subjective Update -02/26- Patient is feeling better now that there is no more urine leaking around the Gage as the Gage was changed in the ED. he is on antibiotics as urine was dirty. His colostomy is functioning normally, bladder scan is negative,. He denies having any shortness of breath but appears to be in distress, taking very short of breath, speaking in single words/short sentences, appears to be belly breathing and he is on oxygen. Urology is consulted, he has worsening KELLY possibly on CKD and Nephrology is being consulted now. We will get imaging to get more objective data. -02/27-patient appears more comfortable after Gage has been adjusted. He continues to be at baseline terms of his weakness. No more urine leakage around the Gage. Urology and Nephrology are consulted. Renal function is improving. Reviewed: H&P Changes from previous H/P or p: No Changes General: Per HPI Objective Vitals Vital Signs Date Time Temp Pulse Resp B/P (MAP) Pulse Ox O2 Delivery O2 Flow Rate FiO2 02/28/24 16:18 99.1 97 17 131/88 (102) 98 99.1 02/28/24 08:00 Nasal Cannula* 4 36 Intake/Output Intake and Output 02/28/24 07:00 Intake Total 960 ml Output Total 850 ml Balance 110 ml Intake Oral 500 ml IV Total 460 ml Output Urine Total 850 ml # Bowel Movements 2 Exam GEN: Healthy appearing, well-developed, appears to be in mild distress, speaking in short sentences/single words, HEENT: NC/AT; MMM. CV: RRR, no m/r/g. LUNGS: CTAB, no w/r/c. ABD: Soft, NT/ND, NBS, no masses or organomegaly. Abdominal scar midline with right colostomy bag with green brown feces anywhere. EXT: skin Warm, well perfused. no rashes. No clubbing, cyanosis, or edema. NEURO: Ambulating with no limitations. No focal deficits. A&O x3 -4. Patient is severely weak, unable to roll to the side or sit up in bed by himself Medications Current Medications Medications Dose Ordered Sig/Monet Route Start Time Stop Time Status Last Admin Dose Admin Hydralazine HCl 10 mg Q6HP PRN IV 02/26/24 16:15 Atorvastatin Calcium 20 mg HS PO 02/26/24 22:00 11/13/24 21:14 20 MG Diagnostic Test (Pha) 1 strip ACHS 02/26/24 17:00 02/28/24 17:39 1 STRIP Insulin Human Regular HS SC 02/26/24 22:00 02/27/24 22:26 3 UNITS Insulin Human Regular AC SC 02/26/24 17:00 02/28/24 17:42 3 UNITS Dextrose 50 ml UD PRN IV 02/26/24 16:15 Acetaminophen/ Hydrocodone Bitart 1 tab Q4HP PRN PO 02/26/24 16:15 Ondansetron HCl 4 mg Q4HP PRN IV 02/26/24 16:15 Docusate Sodium 100 mg BIDPRN PRN PO 02/26/24 16:15 Acetaminophen 650 mg Q6HP PRN PO 02/26/24 16:15 Nitroglycerin 0.4 mg Q5MINP PRN SL 02/26/24 16:15 Morphine Sulfate 2 mg Q30M PRN IV 02/26/24 16:15 Cefepime HCl 50 ml @ 12.5 mls/hr Q12HR IV 02/27/24 22:00 02/28/24 09:38 12.5 MLS/HR Ciprofloxacin HCl 1 drop TID LEFTEYE 02/27/24 22:00 03/03/24 22:30 Laboratory Results Laboratory Tests 02/28/24 04:49 Chemistry Test 02/28/24 04:49 Albumin 3.6 g/dL (3.2-4.8) Calcium Level 9.2 mg/dL (8.7-10.4) Total Protein 6.0 g/dL (5.7-8.2) LFT Test 02/28/24 04:49 Alanine Aminotransferase (ALT) 17 U/L (7-40) Alkaline Phosphatase 71 U/L (46-116) Aspartate Amino Transferase (AST) 17 U/L (13-40) Total Bilirubin 0.6 mg/dL (0.2-1.0) Urinalysis Test 02/26/24 04:42 02/28/24 06:50 Urine Color Light-brown (Yellow) Urine Clarity Ex.turbid (Clear) Urine pH 7.0 (5.0-9.0) Urine Specific [place] 1.013 (1.001-1.035) Urine Protein 3+ (Negative) H Urine Ketones Negative (Negative) Urine Blood 3+ /uL (Negative) H Urine Nitrite Negative (Negative) Urine Bilirubin Negative (Negative) Urine Urobilinogen Normal mg/dL (Negative) Urine Leukocyte Esterase 3+ /uL (Negative) Urine RBC 433 /hpf (0 - 3) Urine WBC 1616 /hpf (0 - 3) Urine WBC Clumps Present /hpf (None Seen) Urine Squamous Epithelial Cells None seen /hpf (<5) Urine Bacteria None seen /hpf (None Seen) Urine Glucose Normal mg/dL (Normal) Urine Creatinine 92.76 mg/dL (30.0-125.0) Urine Sodium 22 mmol/L (40-220) L Microbiology Microbiology Date/Time Source Procedure Growth Status 02/27/24 12:15 Urine - Gage Port Urine Culture - Preliminary Resulted Labs and/or images reviewed: Labs reviewed by me, Image(s) reviewed by me Assessment/Plan Assessment/Plan -02/27-patient appears more comfortable after Gage has been adjusted. He continues to be at baseline terms of his weakness. No more urine leakage around the Gage. Urology and Nephrology are consulted. Renal function is improving. Urinary obstruction UTI/cystitis sepsis Leukocytosis Acute Complicated cystitis KELLY; KELLY on CKD possible. -Patient has chronic Gage, unknown reason. -Patient has KELLY, possibly on CKD; creatinine trending up to 2 - CT abdomen pelvis revealing this urine Gage balloon in prostatic urethra, Gage and does not terminate in the bladder. - 02/27; Gage is advanced and inserted to appropriate length. Creatinine starts to improve. -- Urology has evaluated 02/27, no urgent neurological intervention indicated, patient stable to follow up outpatient with primary urologist. - Nephrology evaluated 02/27: Suspect prerenal azotemia, recommend gentle fluids, IV antibiotics. We will trial fluids avoid nephrotoxic medications maintain Gage; urology plans to follow up outpatient with primary urologist at [place]. Gage appears to be inserted for many months now and getting regular Gage change at home by nurse. no plan with gage as per . Shortness of breaths , Belly breathing (resolved) Acute Hypoxemic respiratory failure -Patient is speaking in short sentences, belly breathing, on oxygen (no history of home oxygen). This appears to have resolved after Gage has been Position appropriately (IE Gage balloon not in prostatic urethra) - most likely from pain - consider CT chest - may need bipap overnight if starts having SOB Weakness -patient has chronic weakness, patient since is the only primary manager mental health and she was unable to move his weight. There is no answer given by [place] as to what is causing his weakness. consider neurology consult vs outpatient referral to [place] neurology (vs neuromuscular specialist) PT eval today AFib Hypertension Hyperlipidemia -Continue home meds Type 2 diabetes -Accu-Cheks q.a.c./HS, apply mild SSI Plan discussed with: Patient My Orders Orders - TRACY OLEARY MD Procedure Category Date Status Time Pt Request For Service PT 02/28/24 Logged 12:51 Date of Service: Feb 28, 2024 Billing Provider: TRACY OLEARY MD Common Visit Codes: [id number] INP/OBS CARE(HIGH) TRACY OLEARY MD Feb 28, 2024 18:30
[2024-02-29] VITALS (8 sets, daily range): BP systolic 107–152; BP diastolic 75–106; PULSE 83–101; RESP 16–20; TEMP 97.9–98.3; O2SAT 94–97
[2024-02-29] MEDS: hydrALAZINE HCL 20 MG/ML VL IV PRN (05:05)
[2024-02-29] MEDS: HYDROcodone-ACET 5/325MG TAB PO PRN (05:06)
[2024-02-29 06:35] LABS: Basophils # (auto) 0 10 ^3/uL (0-0.2); Basophils % (auto) 0.4 % (0.0-2.0); Eosinophils # (auto) 0.3 10 ^3/uL (0-0.8); Eosinophils % (auto) 4.2 % (0.0-7.0); Hematocrit 45.4 % (41.0-53.0); Hemoglobin 15.8 g/dL (13.5-17.5); Lymphocytes # (auto) 1.2 10 ^3/uL (0.4-5.4); Lymphocytes % (auto) 16.9 % (10.0-50.0); Mean Corpuscular Hemoglobin 30.4 pg (28.0-32.0); Mean Corpuscular Hgb Conc. 34.8 g/dL (32.0-36.0); Mean Corpuscular Volume 87.4 fL (80.0-100.0); Monocytes # (auto) 0.5 10 ^3/uL (0-1.3); Monocytes % (auto) 7.5 % (0.0-12.0); Neutrophils # (auto) 5.1 10 ^3/uL (1.6-8.6); Nucleated Red Blood Cells % 0.1 %; Platelet Count (auto) 152 10^3/uL (140-450); Red Cell Distribution Width 13.6 % (11.8-14.3); White Blood Cell 7.2 10^3/uL (4.4-10.8)
[2024-02-29 06:51] LABS: Alanine Aminotransferase 15 U/L (7-40); Albumin 3.6 g/dL (3.2-4.8); Alkaline Phosphatase 71 U/L (46-116); Anion Gap 11 (5-15); Aspartate Aminotransferase 14 U/L (13-40); BUN/Creatinine Ratio 15.6 (10.0-20.0); Bilirubin, Total 0.7 mg/dL (0.2-1.0); Blood Urea Nitrogen 26 mg/dL (9-23); Calcium 9.2 mg/dL (8.7-10.4); Carbon Dioxide 19 mmol/L (20-31); Chloride 109 mmol/L (98-107); Glucose 139 mg/dL (74-106); Potassium 3.4 mmol/L (3.5-5.1); Sodium 139 mmol/L (136-145); Total Protein 5.9 g/dL (5.7-8.2)
[2024-02-29 10:45] LABS: PSA Free 7.56 ng/mL; Prostate Specific Antigen 21.8 ng/mL (0.0-4.0)
--- NOTE | 2024-02-29 14:37 | DVHPN2 ---
Progress Note - Dictate Date Seen: Feb 29, 2024 Medical Necessity Reason Pt with a Central, PICC or Fol: Yes The following are medically ne: Colvin Catheter vital signs Vital Sign Date Time Temp Pulse Resp B/P (MAP) Pulse Ox O2 Delivery O2 Flow Rate FiO2 02/29/24 12:36 97.9 97 16 107/75 (86) 97 97.9 02/29/24 08:00 Nasal Cannula* 4 36 Total Intake and Output 02/28/24 02/28/24 02/29/24 15:00 23:00 07:00 Intake Total 750 ml 1000 ml 300 ml Output Total 750 ml 600 ml Balance 750 ml 250 ml -300 ml medications Current Medications Medications Dose Ordered Sig/Monet Route Start Time Stop Time Status Last Admin Dose Admin Hydralazine HCl 10 mg Q6HP PRN IV 02/26/24 16:15 02/29/24 05:05 10 MG Atorvastatin Calcium 20 mg HS PO 02/26/24 22:00 02/28/24 21:11 20 MG Diagnostic Test (Pha) 1 strip ACHS 02/26/24 17:00 02/29/24 11:12 1 STRIP Insulin Human Regular HS SC 02/26/24 22:00 02/28/24 21:20 2 UNITS Insulin Human Regular AC SC 02/26/24 17:00 02/29/24 11:12 6 UNITS Dextrose 50 ml UD PRN IV 02/26/24 16:15 Acetaminophen/ Hydrocodone Bitart 1 tab Q4HP PRN PO 02/26/24 16:15 02/29/24 05:06 1 TAB Ondansetron HCl 4 mg Q4HP PRN IV 02/26/24 16:15 Docusate Sodium 100 mg BIDPRN PRN PO 02/26/24 16:15 Acetaminophen 650 mg Q6HP PRN PO 02/26/24 16:15 Nitroglycerin 0.4 mg Q5MINP PRN SL 02/26/24 16:15 Morphine Sulfate 2 mg Q30M PRN IV 02/26/24 16:15 Cefepime HCl 50 ml @ 12.5 mls/hr Q12HR IV 02/27/24 22:00 02/29/24 08:37 12.5 MLS/HR Ciprofloxacin HCl 1 drop TID LEFTEYE 02/27/24 22:00 03/03/24 22:30 02/29/24 06:23 1 DROP objective Elderly white male Not in overt distress A alert oriented able to answer questions No JVD Abdomen is soft No pitting edema Colvin catheter in place with urine noted laboratory and microbiology Laboratory Tests 02/29/24 05:16 Test 02/29/24 05:16 Range/Units Serum Glucose 139 H 74-106 mg/dL Assessment/Plan Acute kidney injury multifactorial likely in the setting of Colvin catheter malposition and urinary tract infection Chronic urinary retention in the setting of BPH Sepsis secondary to urinary tract infection hypokalemia potassium replacement continue po diet ABX for UTI stable from renal standpoint as KELLY resolving Plan discussed with: Patient LISA BEAR MD Feb 29, 2024 14:37
[2024-02-29] MEDS: POTASSIUM CHL 20 Meq TABLET PO ONE (16:33)
[2024-02-29] MEDS ORDERED: BACDST PO (17:06)
--- NOTE | 2024-02-29 17:13 | DVHDS2 ---
Discharge Summary Date of Admission Feb 26, 2024 at 16:08 Date of Discharge: Feb 29, 2024 Labs/Diagnostic Data: Laboratory Results Test 02/29/24 16:36 02/29/24 05:16 02/28/24 06:50 02/28/24 04:49 POC Glucose 190 mg/dl (70-106) White Blood Count 7.2 10^3/uL (4.4-10.8) Red Blood Count 5.20 10^6/uL (4.5-5.90) Hemoglobin 15.8 g/dL (13.5-17.5) Hematocrit 45.4 % (41.0-53.0) Mean Corpuscular Volume 87.4 fL (80.0-100.0) Mean Corpuscular Hemoglobin 30.4 pg (28.0-32.0) Mean Corpuscular Hemoglobin Concent 34.8 g/dL (32.0-36.0) Red Cell Distribution Width 13.6 % (11.8-14.3) Platelet Count 152 10^3/uL (140-450) Mean Platelet Volume 8.9 fL (6.9-10.8) Neutrophils (%) (Auto) 71.0 % (37.0-80.0) Lymphocytes (%) (Auto) 16.9 % (10.0-50.0) Monocytes (%) (Auto) 7.5 % (0.0-12.0) Eosinophils (%) (Auto) 4.2 % (0.0-7.0) Basophils (%) (Auto) 0.4 % (0.0-2.0) Neutrophils # (Auto) 5.1 10 ^3/uL (1.6-8.6) Lymphocytes # (Auto) 1.2 10 ^3/uL (0.4-5.4) Monocytes # (Auto) 0.5 10 ^3/uL (0-1.3) Eosinophils # (Auto) 0.3 10 ^3/uL (0-0.8) Basophils # (Auto) 0 10 ^3/uL (0-0.2) Nucleated Red Blood Cells 0.1 % Sodium Level 139 mmol/L (136-145) Potassium Level 3.4 mmol/L (3.5-5.1) Chloride Level 109 mmol/L (98-107) Carbon Dioxide Level 19 mmol/L (20-31) Anion Gap 11 (5-15) Blood Urea Nitrogen 26 mg/dL (9-23) Creatinine 1.67 mg/dL (0.700-1.30) Glomerular Filtration Rate Calc 41 mL/min (>90) BUN/Creatinine Ratio 15.6 (10.0-20.0) Serum Glucose 139 mg/dL (74-106) Calcium Level 9.2 mg/dL (8.7-10.4) Total Bilirubin 0.7 mg/dL (0.2-1.0) Aspartate Amino Transferase (AST) 14 U/L (13-40) Alanine Aminotransferase (ALT) 15 U/L (7-40) Alkaline Phosphatase 71 U/L (46-116) Total Protein 5.9 g/dL (5.7-8.2) Albumin 3.6 g/dL (3.2-4.8) Urine Creatinine 92.76 mg/dL (30.0-125.0) Urine Sodium 22 mmol/L (40-220) Free Prostate Specific Antigen 7.56 ng/mL (N/A) Percent Free Prostate Specific Ag 34.7 % (.) Prostate Specific Antigen Total 21.8 ng/mL (0.0-4.0) Test 02/27/24 05:04 02/26/24 06:38 02/26/24 04:42 Hepatitis B Surface Antigen Negative (Negative) Hepatitis C Antibody Negative (Negative) Lactic Acid Level 1.8 mmol/L (0.4-2.0) Urine Color Light-brown (Yellow) Urine Clarity Ex.turbid (Clear) Urine pH 7.0 (5.0-9.0) Urine Specific [place] 1.013 (1.001-1.035) Urine Protein 3+ (Negative) Urine Ketones Negative (Negative) Urine Blood 3+ /uL (Negative) Urine Nitrite Negative (Negative) Urine Bilirubin Negative (Negative) Urine Urobilinogen Normal mg/dL (Negative) Urine Leukocyte Esterase 3+ /uL (Negative) Urine RBC 433 /hpf (0 - 3) Urine WBC 1616 /hpf (0 - 3) Urine WBC Clumps Present /hpf (None Seen) Urine Squamous Epithelial Cells None seen /hpf (<5) Urine Bacteria None seen /hpf (None Seen) Urine Glucose Normal mg/dL (Normal) Other Laboratory Tests 02/29/24 05:16 Brief Hx & Hospital Course: 78yo male with PMHx of AFib, HTN, HLD, PE, Chronic gage, bed bound, dementia, and DM who presented to [facility] ED with complaint of urinary retention. Patient reports symptoms progressively get worse with hematuria, currently on Gage catheter at home, being followed by home health nurse. On ED eval patient has leukocytosis with neutrophilia/left shift, elevated creatinine, urine is concerning for UTI. Gage is exchanged in ED and later patient appears to be in distress. CT abdomen pelvis without con done shows Gage malposition with balloon and prostatic urethra and tip of catheter not entering bladder. Gage is adjusted appropriately and patient's starts having appropriate urine output. CT abdomen also negative for any obstructions or stones. Patient is KELLY starts improving after appropriate positioning nephrology is consulted and unconcerning given patient's creatinine continues to improve. Urology is also consulted and recommend continue outpatient follow-up. Patient is keeps his records and is his primary ssrs developer and is unaware why patient is weak and bed-bound. PT eval ordered but patient is unwilling to participate. Patient is back to his baseline the weakness does not affect his bowel function or respiratory function. Vital signs stable patient can follow up with [facility] and [facility] to get appropriate workup for weakness. Stable to discharge follow the plan as outlined below. diagnosis: urinary obstruction due to urinary gage malfunction, KELLY due to obstructive uropathy, complicated UTI discharge plan: - take bactrim DS bid x 10 days for urine infection - f/u with PCP, [place] [facility], referral [place] [facility] - consulted social for continuation of HH for gage changes and for home PT - patient needs weakness work-up by PCP referral to [place] [facility] - patient to continue other home meds (do not take any meds other providers have discontinued) Visitation and planning required 35 minutes Condition at Discharge: Fair Final Diagnosis/Problems List urinary obstruction due to urinary gage malfunction, KELLY due to obstructive uropathy, complicated UTI Discharge Disposition: Home with Health Services Discharge Instruct/Medications Diet: Consistent carbohydrate Activity: No Restrictions, As Tolerated Follow Up/Referral: PCP, [place] [facility], referral [facility] Discharge Statement: "Patient was advised to return to the ER or call 911 if any headaches, dizziness, shortness of breath, chest pain, abdominal pain, bleeding, fevers, or worsening of medical condition. Patient was counseled about treatment plan, medications, possible side effects, patientverbalized understanding. All questions were answered to the best of my ability. This discharge took greater then 30 minutes in planning, reviewing documentation, counseling the patient, and discussing with other team members." ASSESSMENT ASSESSMENT Assessment urinary obstruction due to urinary gage malfunction, KELLY due to obstructive uropathy, complicated UTI Date of Service: Feb 29, 2024 Billing Provider: TRACY OLEARY MD Common Visit Codes: [id number] DISCH DAY >30min TRACY OLEARY MD Feb 29, 2024 17:13
[2024-03-01 05:00] VITALS: BP 114/78; PULSE 100; RESP 18; TEMP 98; O2SAT 91
--- NOTE | 2024-03-01 10:25 | DVHPN2 ---
Progress Note - Dictate Date Seen: Mar 01, 2024 Medical Necessity Reason Pt with a Central, PICC or Fol: Yes The following are medically ne: Colvin Catheter vital signs Vital Sign Date Time Temp Pulse Resp B/P (MAP) Pulse Ox O2 Delivery O2 Flow Rate FiO2 03/01/24 07:51 Nasal Cannula* 4 36 03/01/24 05:00 98.0 100 18 114/78 (90) 91 98.0 Total Intake and Output 02/29/24 02/29/24 03/01/24 15:00 23:00 07:00 Intake Total 50 ml 750 ml 350 ml Output Total 800 ml 750 ml Balance 50 ml -50 ml -400 ml medications Current Medications Medications Dose Ordered Sig/Monet Route Start Time Stop Time Status Last Admin Dose Admin Hydralazine HCl 10 mg Q6HP PRN IV 02/26/24 16:15 02/29/24 05:05 10 MG Atorvastatin Calcium 20 mg HS PO 02/26/24 22:00 02/29/24 21:06 20 MG Diagnostic Test (Pha) 1 strip ACHS 02/26/24 17:00 03/01/24 05:46 1 STRIP Insulin Human Regular HS SC 02/26/24 22:00 02/29/24 21:13 2 UNITS Insulin Human Regular AC SC 02/26/24 17:00 03/01/24 05:49 3 UNITS Dextrose 50 ml UD PRN IV 02/26/24 16:15 Acetaminophen/ Hydrocodone Bitart 1 tab Q4HP PRN PO 02/26/24 16:15 02/29/24 05:06 1 TAB Ondansetron HCl 4 mg Q4HP PRN IV 02/26/24 16:15 Docusate Sodium 100 mg BIDPRN PRN PO 02/26/24 16:15 Acetaminophen 650 mg Q6HP PRN PO 02/26/24 16:15 Nitroglycerin 0.4 mg Q5MINP PRN SL 02/26/24 16:15 Morphine Sulfate 2 mg Q30M PRN IV 02/26/24 16:15 Cefepime HCl 50 ml @ 12.5 mls/hr Q12HR IV 02/27/24 22:00 03/01/24 08:28 12.5 MLS/HR Ciprofloxacin HCl 1 drop TID LEFTEYE 02/27/24 22:00 03/03/24 22:30 03/01/24 05:46 1 DROP objective Elderly white male Not in overt distress A alert oriented able to answer questions No JVD Abdomen is soft No pitting edema Colvin catheter in place with urine noted laboratory and microbiology Laboratory Tests 02/29/24 05:16 Test 02/29/24 05:16 Range/Units Serum Glucose 139 H 74-106 mg/dL Assessment/Plan Acute kidney injury multifactorial likely in the setting of Colvin catheter malposition and urinary tract infection Chronic urinary retention in the setting of BPH Sepsis secondary to urinary tract infection hypokalemia potassium replacement continue po diet ABX for UTI stable from renal standpoint as KELLY resolving Plan discussed with: Patient LISA BEAR MD Mar 01, 2024 10:25
[2024-03-01 13:01] VITALS: BP 118/89; PULSE 102; RESP 20; TEMP 98.2; O2SAT 95
--- NOTE | 2024-03-01 13:31 | DVHPN2 ---
Reviewed: Care Plan, H&P Changes from previous H/P or p: No Changes General: Per HPI Objective Vitals Vital Signs Date Time Temp Pulse Resp B/P (MAP) Pulse Ox O2 Delivery O2 Flow Rate FiO2 03/01/24 13:01 98.2 102 20 118/89 (99) 95 98.2 03/01/24 07:51 Nasal Cannula* 4 36 Intake/Output Intake and Output 03/01/24 07:00 Intake Total 1150 ml Output Total 1550 ml Balance -400 ml Intake Oral 1100 ml IV Total 50 ml Output Urine Total 1550 ml Medications Current Medications Medications Dose Ordered Sig/Monet Route Start Time Stop Time Status Last Admin Dose Admin Hydralazine HCl 10 mg Q6HP PRN IV 02/26/24 16:15 02/29/24 05:05 10 MG Atorvastatin Calcium 20 mg HS PO 02/26/24 22:00 02/29/24 21:06 20 MG Diagnostic Test (Pha) 1 strip ACHS 02/26/24 17:00 03/01/24 11:42 1 STRIP Insulin Human Regular HS SC 02/26/24 22:00 02/29/24 21:13 2 UNITS Insulin Human Regular AC SC 02/26/24 17:00 03/01/24 11:48 2 UNITS Dextrose 50 ml UD PRN IV 02/26/24 16:15 Acetaminophen/ Hydrocodone Bitart 1 tab Q4HP PRN PO 02/26/24 16:15 02/29/24 05:06 1 TAB Ondansetron HCl 4 mg Q4HP PRN IV 02/26/24 16:15 Docusate Sodium 100 mg BIDPRN PRN PO 02/26/24 16:15 Acetaminophen 650 mg Q6HP PRN PO 02/26/24 16:15 Nitroglycerin 0.4 mg Q5MINP PRN SL 02/26/24 16:15 Morphine Sulfate 2 mg Q30M PRN IV 02/26/24 16:15 Cefepime HCl 50 ml @ 12.5 mls/hr Q12HR IV 02/27/24 22:00 03/01/24 08:28 12.5 MLS/HR Ciprofloxacin HCl 1 drop TID LEFTEYE 02/27/24 22:00 03/03/24 22:30 03/01/24 05:46 1 DROP Laboratory Results Laboratory Tests 02/29/24 05:16 Urinalysis Test 02/26/24 04:42 02/28/24 06:50 Urine Color Light-brown (Yellow) Urine Clarity Ex.turbid (Clear) Urine pH 7.0 (5.0-9.0) Urine Specific [place] 1.013 (1.001-1.035) Urine Protein 3+ (Negative) H Urine Ketones Negative (Negative) Urine Blood 3+ /uL (Negative) H Urine Nitrite Negative (Negative) Urine Bilirubin Negative (Negative) Urine Urobilinogen Normal mg/dL (Negative) Urine Leukocyte Esterase 3+ /uL (Negative) Urine RBC 433 /hpf (0 - 3) Urine WBC 1616 /hpf (0 - 3) Urine WBC Clumps Present /hpf (None Seen) Urine Squamous Epithelial Cells None seen /hpf (<5) Urine Bacteria None seen /hpf (None Seen) Urine Glucose Normal mg/dL (Normal) Urine Creatinine 92.76 mg/dL (30.0-125.0) Urine Sodium 22 mmol/L (40-220) L Microbiology Microbiology Date/Time Source Procedure Growth Status 02/27/24 12:15 Urine - [place] Urine Culture - Final Morganella morganii Citrobacter freundii Complete Assessment/Plan Assessment/Plan -02/27-patient appears more comfortable after Gage has been adjusted. He continues to be at baseline terms of his weakness. No more urine leakage around the Gage. Urology and Nephrology are consulted. Renal function is improving. Urinary obstruction UTI/cystitis sepsis Leukocytosis Acute Complicated cystitis KELLY; KELLY on CKD possible. -Patient has chronic Gage, unknown reason. -Patient has KELLY, possibly on CKD; creatinine trending up to 2 - CT abdomen pelvis revealing this urine Gage balloon in prostatic urethra, Gage and does not terminate in the bladder. - 02/27; Gage is advanced and inserted to appropriate length. Creatinine starts to improve. -- Urology has evaluated 02/27, no urgent neurological intervention indicated, patient stable to follow up outpatient with primary urologist. - Nephrology evaluated 02/27: Suspect prerenal azotemia, recommend gentle fluids, IV antibiotics. We will trial fluids avoid nephrotoxic medications maintain Gage; urology plans to follow up outpatient with primary urologist at [place]. Gage appears to be inserted for many months now and getting regular Gage change at home by nurse. no plan with gage as per . Shortness of breaths , Belly breathing (resolved) Acute Hypoxemic respiratory failure -Patient is speaking in short sentences, belly breathing, on oxygen (no history of home oxygen). 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 There is no answer given by [place] as to what is causing his weakness. consider neurology consult vs outpatient referral to [place] neurology (vs neuromuscular specialist) PT eval today AFib Hypertension Hyperlipidemia -Continue home meds Type 2 diabetes -Accu-Cheks q.a.c./HS, apply mild SSI Plan discussed with: Patient Date of Service: Mar 01, 2024 Billing Provider: CUCO GU DO Common Visit Codes: [id number] INP/OBS CARE(HIGH) CUCO GU DO Mar 01, 2024 13:31
[2024-03-01 16:49] VITALS: BP 116/85; PULSE 99; RESP 21; TEMP 98.6; O2SAT 96
== END 2024-03-01 16:41 | disposition home or self-care (01) | DRG 871 ==
LOC: ER 02:44 → EDBD 02:44 → TELE 16:08 → TELE-EAST 21:56
PROVIDERS: ADMIT Nurse Practitioner Family; ATTEND Student in an Organized Health Care Education/Training Program
DX: A41.9 Sepsis, unspecified organism (principal); G93.41 Metabolic encephalopathy; J96.01 Acute respiratory failure with hypoxia; T83.511A Infection and inflammatory reaction due to indwelling urethral catheter, initial encounter; N17.9 Acute kidney failure, unspecified; N30.01 Acute cystitis with hematuria; N13.8 Other obstructive and reflux uropathy; E11.65 Type 2 diabetes mellitus with hyperglycemia; N40.1 Benign prostatic hyperplasia with lower urinary tract symptoms; R33.8 Other retention of urine; I12.9 Hypertensive chronic kidney disease with stage 1 through stage 4 chronic kidney disease, or unspecified chronic kidney disease; N18.9 Chronic kidney disease, unspecified; E87.6 Hypokalemia; E11.22 Type 2 diabetes mellitus with diabetic chronic kidney disease; E78.5 Hyperlipidemia, unspecified; F03.90 Unspecified dementia, unspecified severity, without behavioral disturbance, psychotic disturbance, mood disturbance, and anxiety; Z93.3 Colostomy status; Z90.49 Acquired absence of other specified parts of digestive tract; Z74.01 Bed confinement status; Z79.01 Long term (current) use of anticoagulants; Z83.3 Family history of diabetes mellitus; Z82.49 Family history of ischemic heart disease and other diseases of the circulatory system; Z86.711 Personal history of pulmonary embolism; Y84.8 Other medical procedures as the cause of abnormal reaction of the patient, or of later complication, without mention of misadventure at the time of the procedure; Y92.89 Other specified places as the place of occurrence of the external cause
CPT/HCPCS: 36415; 74176; 80048; 80053; 81001; 82570; 82962; 83605; 84154; 84300; 85025; 86803; 87086; 87088; 87186; 87340; 96365; 97163; G0378; J1815

== ENCOUNTER 2024-09-16 12:43 | Inpatient (IN) | payer OTHER ==
[~2024-09-16] VITALS: Ht 177.8 cm; Wt 103.1 kg
[~2024-09-16 12:43] MED LIST changes: -AMLO1TAB22 PO
--- NOTE | 2024-09-16 12:59 | ED.PDOC ---
General HPI Comments 79 year old male presents to the ED via EMS with a chief complaint of low urine output onset today (09/16/24). Per EMS, patient's spouse noticed patient's urine output was low this morning. Patient has a Colvin Catheter in place, he states he has no complaints. PMHx a-fib, HTN, DM, HLD, UTI, PE. Denies abdominal pain, dysuria, hematuria, chest pain, shortness of breath, dizziness, blurry vision, fevers, chills. No other symptoms or modifying factors present at this time. Time Seen by MD: 12:50 Primary Care Provider: NONE Reviewed notes: Medications, Allergies Allergies: Coded Allergies: NO KNOWN ALLERGIES (Unverified , 03/10/21) Home Meds Active Scripts Sulfamethoxazole W/Trimethopri (Bactrim Ds Tablet) 1 Tab Tb, 1 TAB PO BID for 7 Days, #14 TAB Prov:SOHAIL ESCOBAR MD 09/16/24 Sulfamethoxazole W/Trimethopri (Bactrim Ds Tablet) 1 Tab Tb, 1 TAB PO BID for 10 Days, #20 TAB 0 Refills Prov:TRACY OLEARY MD 02/29/24 Sulfamethoxazole W/Trimethopri (Bactrim Ds Tablet) 1 Tab Tb, 1 TAB PO BID for 7 Days, #14 TAB Prov:LUDA URIARTE 11/04/23 Ciprofloxacin Hcl (Cipro) 500 Mg Tab, 1 TAB PO BID, #14 TAB Prov:DUKE JOLLY MD 03/31/22 Ondansetron (Zofran) 4 Mg Tab, 1 TAB PO Q6HR, #20 TAB Prov:DUKE JOLLY MD 03/31/22 Simethicone (Simethicone) 80 Mg Chw, 1 TAB PO Q8HR, #20 TAB Prov:ARPAN LEBLANC MD 01/24/22 Metoclopramide Hcl (Reglan) 10 Mg Tab, 10 MG PO BID, #20 TAB Prov:ARPAN LEBLANC MD 01/24/22 Coenzyme Q10 (Coq-10) 100 Mg Cap, 100 MG PO HS, #30 CAP Prov:CHONG NOBLES 06/28/21 Reported Medications Clonidine Hydrochloride (Clonidine Hcl) 0.1 Mg/24 Hr Dis, 1 PATCH TOP QWEEKLY 03/19/22 Potassium Chloride (K-Tabs) 10 Meq Tab, 1 TAB PO DAILY 03/19/22 Hydralazine Hcl (Hydralazine Hcl) 10 Mg Tab, 1 TAB PO BID 03/19/22 Lisinopril (Lisinopril) 40 Mg Tab, 1 TAB PO DAILY 03/19/22 Tocopheryl Acetate, Dl-Alpha (Vitamin E) 180 Mg Cap, 180 MG PO DAILY, CAP 06/28/21 Dulaglutide (Trulicity) 1.5 Mg/0.5 Ml Inj, 1.5 MG SC QWEEKLY, INJ 06/28/21 Glipizide (Glipizide) 5 Mg Tab, 1 TAB PO DAILY 06/28/21 Canagliflozin (INVOKANA) 100 Mg Tab, 1 TAB PO QAM 06/28/21 Atorvastatin Calcium (ATORVASTATIN CALCIUM) 20 Mg Tab, 1 TAB PO HS 06/28/21 Latanoprost (LATANOPROST) 0.005 % Coni, 1 DROP EACHEYE HS 06/28/21 Cholecalciferol (VITAMIN D) 5,000 Unit Tab, 5000 UNIT OR DAILY, TAB 06/28/21 Amlodipine Besylate (Amlodipine Besylate) 10 Mg Tab, 1 TAB PO DAILY, #30 TAB 5 Refills 06/28/21 Metoprolol Tartrate (Metoprolol Tartrate) 50 Mg Tab, 50 MG PO BID for 30 Days, MG 03/10/21 Metformin Hydrochloride (Metformin Hcl) 500 Mg Tab, 500 MG PO IBID for 30 Days, MG 03/10/21 Losartan Potassium (Losartan Potassium) 100 Mg Tab, 100 MG PO DAILY for 30 Days, MG 03/10/21 Finasteride (Finasteride) 5 Mg Tab, 5 MG PO DAILY for 30 Days, MG 03/10/21 Apixaban Base (ELIQUIS) 5 Mg Tab, 2.5 MG PO BID, TAB 03/10/21 Information Source: Patient, Emergency Med Personnel Mode of Arrival: EMS Severity: Moderate Inability to void: Moderate Timing: Hours Duration: Since onset Prehospital treatment: None Onset: Spontaneous Symptoms: Inability to void Location: None Penile discharge: None Modifying factors: None associated signs and symptoms: Inability to Void Past Medical History PAST MEDICAL HISTORY: AFIB, DM, High Lipids, HTN, PE, UTI'S Surgical History: Cholecystectomy, Tonsillectomy Family History Family History: Unknown Social History Smoker: Non-Smoker Alcohol: Denies ETOH Use Drugs: Denies Drug Use Lives In: Home Constitutional: denies: chills, diaphoresis, fatigue, fever, malaise, sweats, weakness, others EENTM: denies: blurred vision, double vision, ear bleeding, ear discharge, ear drainage, ear pain, ear ringing, eye pain, eye redness, hearing loss, mouth pain , mouth swelling, nasal discharge, nose bleeding, nose congestion, nose pain, photophobia, tearing, throat pain, throat swelling, voice changes, others Respiratory: denies: cough, hemoptysis, orthopnea, SOB at rest, shortness of breath, SOB with excertion, stridor, wheezing, others Cardiovascular: denies: chest pain, dizzy spells, diaphoresis, Dyspnea on exertion, edema, irregular heart beat, left arm pain, lightheadedness, palpitations, PND, syncope, others Gastrointestinal: denies: abdomen distended, abdominal pain, blood streaked bowels, constipated, diarrhea, dysphagia, difficulty swallowing, hematemesis, melena, nausea, poor appetite, poor fluid intake, rectal bleeding, rectal pain, vomiting, others Genitourinary: reports: others (poor urine output); denies: burning, dysuria, flank pain, frequency, hematuria, incontinence, penile discharge, penile sore, pain, testicle pain, testicle swelling, urgency Neurological: denies: dizziness, fainting, headache, left sided numbness, left sided weakness, numbness, paresthesia, pre-existing deficit, right sided numbness, right sided weakness, seizure, speech problems, tingling, tremors, w eakness, others Musculoskeletal: denies: back pain, gout, joint pain, joint swelling, muscle pain, muscle stiffness, neck pain, others Integumetry: denies: bruises, change in color, change in hair/nails, dryness, laceration, lesions, lumps, rash, wounds, others Allergic/Immunocompromised: denies: Difficulty Healing, Frequent Infections, Hives, Itching, others Hematologic/Lymphatic: denies: anemia, blood clots, easy bleeding, easy bruising, swollen glands, others Endocrine: denies: excessive hunger, excessive sweating, excessive thirst, excessive urination, flushing, intolerance to cold, intolerance to heat, unexplained weight gain, unexplained weight loss, others Psychiatric: denies: anxiety, bipolar disorder, depression, hopeless, panic disorder, schizophrenia, sleepless, suicidal, others All Other Systems: Reviewed and Negative Physical Exam General Appearance: Moderate Distress, Normal HEENT: Normal ENT Inspection, Pharynx Normal, TMs Normal Neck: Full Range of Motion, Non-Tender, Normal, Normal Inspection Respiratory: Chest Non-Tender, Lungs Clear, No Accessory Muscle Use, No Respiratory Distress, Normal Breath Sounds Cardiovascular: No Edema, No JVD, No Murmur, No Gallop, Normal Peripheral Pulses, Regular Rate/Rhythm Breast Exam: Deferred Gastrointestinal: No Organomegaly, Non Tender, No Pulsatile Mass, Normal Bowel Sounds, Soft Genitalia: Deferred Pelvic: Deferred Rectal: Deferred Extremities: No calf tenderness, Normal capillary refill, No pedal edema Musculoskeletal : Apperance: Normal Neurologic: Disoriented Cerebellar Function: NOT DONE Reflexes: NOT DONE Skin: Dry, Normal Color, Warm Peripheral Pulses: 3+ Radial (R), 3+ Radial (L) Lymphatic: No Adenopathy Was a procedure done? Was a procedure done?: No Differential Diagnosis Kidney stone (Female): Musculoskeletal pain, Urinary obstruction, Urolithiasis X-Ray, Labs, Meds, VS Vital Signs Date Time Temp Pulse Resp B/P (MAP) Pulse Ox O2 Delivery O2 Flow Rate FiO2 09/16/24 12:51 98.9 77 14 120/80 (93) 100 98.9 Lab Test 09/16/24 15:00 Range/Units Urine Color Pending Urine Clarity Pending Urine pH Pending Urine Specific [place] Pending Urine Protein Pending Urine Ketones Pending Urine Blood Pending Urine Nitrite Pending Urine Bilirubin Pending Urine Urobilinogen Pending Urine Leukocyte Esterase Pending Urine RBC Pending Urine Microscopic WBC Pending Urine Squamous Epithelial Cells Pending Urine Bacteria Pending Urine Glucose Pending Patient slightly disoriented. Vitals stable. Has a Colvin catheter in place. Answering questions. Denies any symptoms. Abdomen is soft nontender. Possible urinary tract infection. CT scan of the head was not done because there was no trauma related. He is altered possibly from urinary tract infection. Was given Bactrim. Explained to the . Continue monitoring. Time of 1ST Reevaluation: 13:20 Reevaluation 1ST: Unchanged Patient Education/Counseling: Diagnosis, Treatment, Prognosis Family Education/Counseling: No Family Present Departure 1 Departure Time of Disposition: 13:35 Impression: Primary Impression: Metabolic encephalopathy Additional Impressions: Sepsis due to urinary tract infection Uncontrolled diabetes mellitus Qualified Codes: E13.65 - Other specified diabetes mellitus with hyperglycemia Disposition: ADMITTED INPATIENT Admit to: Med Surg Condition: Guarded e-Prescriptions Sulfamethoxazole W/Trimethopri (Bactrim Ds Tablet) 1 Tab Tb 1 TAB PO BID for 7 Days, #14 TAB Prov: SOHAIL ESCOBAR MD 09/16/24 Critical Care Note Critical Care Time?: No Stability Stability form required: No Heart Score Heart Score: Heart Score Response (Comments) Value History N/A 0 EKG N/A 0 Age N/A 0 Risk Factors N/A 0 Troponin N/A 0 Total 0 I personally scribed for SOHAIL ESCOBAR MD ([email or web address]) on 09/16/24 at 12:59. Electronically submitted by Yareli Ramírez ([email or web address]). SOHAIL ESCOBAR MD Sep 16, 2024 12:59
[2024-09-16] MEDS ORDERED: BACDST PO (13:36)
[2024-09-16 15:46] LABS: Urine Bacteria FEW /hpf (None Seen); Urine Blood 3+ /uL (Negative); Urine Clarity Ex.Turbid (Clear); Urine Color Brown (Yellow); Urine Protein, UAD 3+ (Negative); Urine Specific Gravity 1.017 (1.001-1.035); Urine Squamous Epithelial Cell None Seen /hpf (<5); Urine Urobilinogen Normal (Negative); Urine WBC 745 /HPF (0-3); Urine WBC Clumps PRESENT /hpf (None Seen)
[2024-09-16 15:50] LABS: Basophils # (auto) 0.1 10 ^3/uL (0-0.2); Basophils % (auto) 0.9 % (0.0-2.0); Eosinophils # (auto) 0.1 10 ^3/uL (0-0.8); Eosinophils % (auto) 1.6 % (0.0-7.0); Hematocrit 45.4 % (41.0-53.0); Hemoglobin 15.6 g/dL (13.5-17.5); Lymphocytes # (auto) 1.6 10 ^3/uL (0.4-5.4); Lymphocytes % (auto) 19.7 % (10.0-50.0); Mean Corpuscular Hemoglobin 29.6 pg (28.0-32.0); Mean Corpuscular Hgb Conc. 34.4 g/dL (32.0-36.0); Mean Corpuscular Volume 86.1 fL (80.0-100.0); Monocytes # (auto) 0.8 10 ^3/uL (0-1.3); Monocytes % (auto) 9.8 % (0.0-12.0); Neutrophils # (auto) 5.4 10 ^3/uL (1.6-8.6); Nucleated Red Blood Cells % 0.1 %; Platelet Count (auto) 204 10^3/uL (140-450); Red Blood Cells 5.27 10^6/uL (4.5-5.90); Red Cell Distribution Width 14.3 % (11.8-14.3)
[2024-09-16 15:57] LABS: Chloride 104 mmol/L (98-107); Potassium 4.2 mmol/L (3.5-5.1); Sodium 137 mmol/L (136-145)
[2024-09-16 15:58] LABS: Anion Gap 6 (5-15); Carbon Dioxide 27 mmol/L (20-31)
[2024-09-16 15:59] LABS: Calcium 9.4 mg/dL (8.7-10.4)
[2024-09-16 16:03] LABS: BUN/Creatinine Ratio 17.7 (10.0-20.0)
[2024-09-16 16:04] LABS: Blood Urea Nitrogen 31 mg/dL (9-23); Glucose 180 mg/dL (74-106)
[2024-09-16 16:45] VITALS: PULSE 69; RESP 22; O2SAT 97
[2024-09-16] MEDS: SODIUM CHLORIDE 0.9% 1,000 ML IV ONE ×2 (17:46→19:18)
[2024-09-16] MEDS: SULFAMETH-TRIMETH 80/16MG-ML 15 ML in D5W 5% 500 ML IV ONE (18:32)
[2024-09-16] MEDS ORDERED: ONDANSETRON HCL 4 MG/2 ML VIAL IV PRN (18:45)
[2024-09-16] MEDS ORDERED: ACETAMINOPHEN 325 MG TAB PO PRN (18:45)
[2024-09-16] MEDS ORDERED: DEXTROSE (50%) 50ML SYRG IV PRN (18:45)
[2024-09-16] MEDS: ERTAPENEM SOD INJ 1 GM in SODIUM CHL 0.9% 50 ML IV SCH (20:45)
[2024-09-16] MEDS: InsuLIN REG 1unit/0.01ml Soln (100units/ml) SC SCH (22:00)
[2024-09-16] MEDS: ACCU-CHEK COMFORT CURVE STRIP VI SCH (22:09)
[2024-09-16] MEDS: ATORVASTATIN 20 MG TAB PO SCH (22:13)
[2024-09-16] MEDS: METOPROLOL TARTRATE 25 MG TAB PO SCH (22:13)
[2024-09-16] MEDS: APIXABAN 2.5 MG TAB PO SCH (22:13)
[2024-09-16] MEDS ORDERED: NITROGLYCERIN 0.4 MG SL TAB SL PRN (22:15)
[2024-09-16] MEDS ORDERED: MORPHINE SULFATE INJ 2 MG/ml SYRG IV PRN (22:15)
[2024-09-17 00:41] VITALS: PULSE 72; RESP 20; O2SAT 96
--- NOTE | 2024-09-17 02:06 | DVHHP2 ---
TREVON GENAO IMMUNOLOGIST 09/17/24 0206: History of Present Illness Reason for Visit: Malfunctioning indwelling Colvin catheter History of Present Illness 79-year-old male with past medical history of DM, chronic indwelling Colvin catheter presents with complaints of decreased urine output x1 day. While the patient was in the emergency department the Colvin catheter was exchanged which improved urine flow. UA was positive for leukocyte esterase 3+. The BUN was 31 creatinine 1.75. At this time patient is alert and oriented x3. Denies any fevers, chills, nausea, vomiting, abdominal pain, dysuria. Endocrine: Diabetes Smoke: No ALCOHOL: none Drugs: None Lives: with Family Review of Systems Constitutional: No: Fever, Chills, Sweats, Weakness, Malaise, Other Eyes: No: Pain, Vision change, Conjunctivae inflammation, Eyelid inflammation, Other, Redness ENT: No: Ear pain, Ear discharge, Nose pain, Nose discharge, Nose congestion, Mouth pain, Mouth swelling, Throat pain, Throat swelling, Other Respiratory: No: Cough, Dry, Shortness of breath, SOB with excertion, Wheezing, Hemoptysis, Pleuritic Pain, Sputum, Wheezing, Other Cardiovascular: No: Chest Pain, Palpitations, Orthopnea, Paroxysmal Noc. Dyspnea, Edema, Lt Headedness, Other Gastrointestinal: No: Nausea, Vomiting, Abdominal Pain, Diarrhea, Constipation, Melena, Hematochezia, Other Genitourinary: Retention Musculoskeletal: No: other, neck pain, shoulder pain, arm pain, back pain, hand pain, leg pain, foot pain Skin: No: Rash, Lesions, Jaundice, Bruising, Other Neurological: No: Weakness, Numbness, Incoordination, Change in speech, Confusion, Seizures, Other Allergies: Coded Allergies: NO KNOWN ALLERGIES (Unverified , 03/10/21) Medications Current Medications Medications Dose Ordered Sig/Monet Route Start Time Stop Time Status Last Admin Dose Admin Atorvastatin Calcium 20 mg HS PO 09/16/24 22:00 09/16/24 22:13 20 MG Apixaban 2.5 mg BID PO 09/16/24 22:00 09/16/24 22:13 2.5 MG Amlodipine Besylate 10 mg DAILY PO 09/17/24 10:00 Finasteride 5 mg DAILY PO 09/17/24 10:00 Metoprolol Tartrate 25 mg BID PO 09/16/24 22:00 09/16/24 22:13 25 MG Patient Own Medication 1 grams DAILY IV 09/17/24 10:00 UNV Ondansetron HCl 4 mg Q4HP PRN IV 09/16/24 18:45 Acetaminophen 650 mg Q6HP PRN PO 09/16/24 18:45 Diagnostic Test (Pha) 1 strip ACHS 09/16/24 22:00 09/16/24 22:09 1 STRIP Insulin Human Regular ACHS SC 09/16/24 22:00 Dextrose 50 ml UD PRN IV 09/16/24 18:45 Ertapenem 1 gm/ Sodium Chloride 50 ml @ 100 mls/hr DAILY@1800 IV 09/16/24 20:00 09/16/24 20:45 100 MLS/HR Nitroglycerin 0.4 mg Q5MINP PRN SL 09/16/24 22:15 Morphine Sulfate 2 mg Q30M PRN IV 09/16/24 22:15 Exam Vital Signs Vital Signs Date Time Temp Pulse Resp B/P (MAP) Pulse Ox O2 Delivery O2 Flow Rate FiO2 09/17/24 00:46 80 128/79 09/17/24 00:41 20 96 Nasal Cannula* 2 28 09/16/24 16:45 98.0 98.0 General Appearance: Alert, Oriented X3, Cooperative, No acute distress HEENT: Atraumatic, PERRLA, EOMI Respiratory: Clear to auscultation, Normal air movement Cardiovascular: Regular rate, Normal S1, Normal S2 Abdominal: Normal bowel sounds, Soft, No tenderness Extremities: No clubbing, No cyanosis, No edema Skin: No breakdown Neuro: Normal speech, Strength at 5/5 X4 ext Psych/Mental Status: Mental status NL, Mood NL Labs/Xrays Labs Test 09/16/24 22:08 09/16/24 19:09 09/16/24 15:39 09/16/24 15:00 Range/Units POC Glucose 128 H 70-106 mg/dl Lactic Acid Level 1.6 0.4-2.0 mmol/L White Blood Count 8.0 4.4-10.8 10^3/uL Red Blood Count 5.27 4.5-5.90 10^6/uL Hemoglobin 15.6 13.5-17.5 g/dL Hematocrit 45.4 41.0-53.0 % Mean Corpuscular Volume 86.1 80.0-100.0 fL Mean Corpuscular Hemoglobin 29.6 28.0-32.0 pg Mean Corpuscular Hemoglobin Concent 34.4 32.0-36.0 g/dL Red Cell Distribution Width 14.3 11.8-14.3 % Platelet Count 204 140-450 10^3/uL Mean Platelet Volume 7.5 6.9-10.8 fL Neutrophils (%) (Auto) 68.0 37.0-80.0 % Lymphocytes (%) (Auto) 19.7 10.0-50.0 % Monocytes (%) (Auto) 9.8 0.0-12.0 % Eosinophils (%) (Auto) 1.6 0.0-7.0 % Basophils (%) (Auto) 0.9 0.0-2.0 % Neutrophils # (Auto) 5.4 1.6-8.6 10 ^3/uL Lymphocytes # (Auto) 1.6 0.4-5.4 10 ^3/uL Monocytes # (Auto) 0.8 0-1.3 10 ^3/uL Eosinophils # (Auto) 0.1 0-0.8 10 ^3/uL Basophils # (Auto) 0.1 0-0.2 10 ^3/uL Nucleated Red Blood Cells 0.1 % Sodium Level 137 136-145 mmol/L Potassium Level 4.2 3.5-5.1 mmol/L Chloride Level 104 98-107 mmol/L Carbon Dioxide Level 27 20-31 mmol/L Anion Gap 6 5-15 Blood Urea Nitrogen 31 H 9-23 mg/dL Creatinine 1.75 H 0.700-1.30 mg/dL Glomerular Filtration Rate Calc 39 >90 mL/min BUN/Creatinine Ratio 17.7 10.0-20.0 Serum Glucose 180 H 74-106 mg/dL Calcium Level 9.4 8.7-10.4 mg/dL Urine Color Brown H Yellow Urine Clarity Ex.turbid Clear Urine pH 8.0 5.0-9.0 Urine Specific [place] 1.017 1.001-1.035 Urine Protein 3+ H Negative Urine Ketones Negative Negative Urine Blood 3+ H Negative /uL Urine Nitrite Negative Negative Urine Bilirubin Negative Negative Urine Urobilinogen Normal Negative mg/dL Urine Leukocyte Esterase 3+ Negative /uL Urine RBC 3760 0 - 3 /hpf Urine WBC Clumps Present None Seen /hpf Urine Microscopic WBC 745 H 0-3 /HPF Urine Squamous Epithelial Cells None seen <5 /hpf Urine Bacteria Few H None Seen /hpf Urine Glucose Normal Normal mg/dL Assessment/Plan Assessment/Plan [facility] an Error by the registration department and insurance verification. Assumed care of patient at 2200 after patient had been admitted at 1820 PM. Acute UTI KELLY DM Plan Admit medical floor IVF IV ABX Urine culture pending Monitor BMP. Trend BUN/creatinine. Blood glucose check with regular insulin sliding scale coverage for optimal glycemic management Continue home medication GI ppx pepcid / DVT ppx SCD Plan discussed with: Patient My Orders Orders - TREVON GENAO NP Procedure Category Date Status Time Admit ADMIT 09/16/24 Transmitted 22:10 Nitroglycerin PHA 09/16/24 In Process Sublingual (Ntrostat 22:15 Morphine Sulfate PHA 09/16/24 In Process Injection 22:15 Stat Ekg For Chest RADHA 09/16/24 In Process Pain 22:10 Notify Md Of Changes RADHA 09/16/24 In Process From Base 22:10 Machinist Linotype For RADHA 09/16/24 In Process 24 Hours 22:10 Emergency Dysrhythmia RADHA 09/16/24 In Process Protocol 22:10 Rhythm Strips Once RADHA 09/16/24 In Process Every Shift 22:10 Oxygen By Nasal RT 09/16/24 Transmitted Cannula 22:10 Date of Service: Sep 17, 2024 Billing Provider: JESIKA BONNER MD Common Visit Codes: NOT BILLABLE JESIKA BONNER MD 09/26/24 1438: Review of Systems Allergies: Coded Allergies: NO KNOWN ALLERGIES (Unverified , 03/10/21) TREVON GENAO NP Sep 17, 2024 02:06 JESIKA BONNER MD Sep 26, 2024 14:38
[2024-09-17 06:32] LABS: Anion Gap 10 (5-15); Carbon Dioxide 22 mmol/L (20-31); Chloride 106 mmol/L (98-107); Sodium 138 mmol/L (136-145)
[2024-09-17 06:34] LABS: Calcium 9.1 mg/dL (8.7-10.4)
[2024-09-17 06:39] LABS: BUN/Creatinine Ratio 17.4 (10.0-20.0)
[2024-09-17 06:41] LABS: Blood Urea Nitrogen 27 mg/dL (9-23); Glucose 119 mg/dL (74-106)
[2024-09-17 06:42] LABS: Basophils # (auto) 0.1 10 ^3/uL (0-0.2); Basophils % (auto) 0.7 % (0.0-2.0); Eosinophils # (auto) 0.1 10 ^3/uL (0-0.8); Eosinophils % (auto) 1.7 % (0.0-7.0); Hematocrit 44.5 % (41.0-53.0); Hemoglobin 15.7 g/dL (13.5-17.5); Lymphocytes # (auto) 1.3 10 ^3/uL (0.4-5.4); Mean Corpuscular Hemoglobin 30.7 pg (28.0-32.0); Mean Corpuscular Hgb Conc. 35.2 g/dL (32.0-36.0); Monocytes # (auto) 0.8 10 ^3/uL (0-1.3); Monocytes % (auto) 10.8 % (0.0-12.0); Neutrophils # (auto) 5.4 10 ^3/uL (1.6-8.6); Neutrophils % (auto) 69.8 % (37.0-80.0); Nucleated Red Blood Cells % 0.4 %; Platelet Count (auto) 193 10^3/uL (140-450); Red Blood Cells 5.12 10^6/uL (4.5-5.90); Red Cell Distribution Width 14.1 % (11.8-14.3); White Blood Cell 7.7 10^3/uL (4.4-10.8)
[2024-09-17 08:30] VITALS: PULSE 92; RESP 20; O2SAT 95
[2024-09-17] MEDS ORDERED: PATIENTS OWN MEDICATION (ertapenem 1 GRAMS) IV SCH (10:00)
[2024-09-17] MEDS: FINASTERIDE 5 MG TAB PO SCH (11:15)
[2024-09-17] MEDS: amLODIPine BESYLATE 5 MG TAB PO SCH (11:16)
--- NOTE | 2024-09-17 13:41 | DVHPN2 ---
Reviewed: Care Plan, H&P, Labs, Medications, Previous Orders, Radiology Changes from previous H/P or p: No Changes Eyes: No Pain, No Vision change, No Conjunctivae inflammation, No Eyelid inflammation, No Other, No Redness ENT: No Ear pain, No Ear discharge, No Nose pain, No Nose discharge, No Nose congestion, No Mouth pain, No Mouth swelling, No Throat pain, No Throat swelling, No Other Cardiovascular: No Chest Pain, No Palpitations, No Orthopnea, No Paroxysmal Noc. Dyspnea, No Edema, No Lt Headedness, No Other Respiratory: No Cough, No Dry, No Shortness of breath, No SOB with excertion, No Wheezing, No Hemoptysis, No Pleuritic Pain, No Sputum, No Other Gastrointestinal: No Nausea, No Vomiting, No Abdominal Pain, No Diarrhea, No Constipation, No Melena, No Hematochezia, No Other Genitourinary: Retention Musculoskeletal: No other, No neck pain, No shoulder pain, No arm pain, No back pain, No hand pain, No leg pain, No foot pain Skin: No Rash, No Lesions, No Jaundice, No Bruising, No Other Objective Vitals Vital Signs Date Time Temp Pulse Resp B/P (MAP) Pulse Ox O2 Delivery O2 Flow Rate FiO2 09/17/24 12:10 95 144/94 09/17/24 12:00 97.7 19 98 97.7 09/17/24 08:30 Nasal Cannula* 2 28 Intake/Output Intake and Output 09/17/24 07:00 Intake Total 2096.667 ml Balance 2096.667 ml Intake IV Total 2096.667 ml Medications Current Medications Medications Dose Ordered Sig/Monet Route Start Time Stop Time Status Last Admin Dose Admin Atorvastatin Calcium 20 mg HS PO 09/16/24 22:00 09/16/24 22:13 20 MG Apixaban 2.5 mg BID PO 09/16/24 22:00 09/17/24 11:15 2.5 MG Amlodipine Besylate 10 mg DAILY PO 09/17/24 10:00 09/17/24 11:16 10 MG Finasteride 5 mg DAILY PO 09/17/24 10:00 09/17/24 11:15 5 MG Metoprolol Tartrate 25 mg BID PO 09/16/24 22:00 09/17/24 11:16 25 MG Patient Own Medication 1 grams DAILY IV 09/17/24 10:00 UNV Ondansetron HCl 4 mg Q4HP PRN IV 09/16/24 18:45 Acetaminophen 650 mg Q6HP PRN PO 09/16/24 18:45 Diagnostic Test (Pha) 1 strip ACHS 09/16/24 22:00 09/17/24 11:47 1 STRIP Insulin Human Regular ACHS SC 09/16/24 22:00 09/17/24 11:48 4 UNITS Dextrose 50 ml UD PRN IV 09/16/24 18:45 Ertapenem 1 gm/ Sodium Chloride 50 ml @ 100 mls/hr DAILY@1800 IV 09/16/24 20:00 09/16/24 20:45 100 MLS/HR Nitroglycerin 0.4 mg Q5MINP PRN SL 09/16/24 22:15 Morphine Sulfate 2 mg Q30M PRN IV 09/16/24 22:15 Laboratory Results Laboratory Tests 09/17/24 05:43 Chemistry Test 09/16/24 15:39 09/17/24 05:43 Calcium Level 9.4 mg/dL (8.7-10.4) 9.1 mg/dL (8.7-10.4) Urinalysis Test 09/16/24 15:00 Urine Color Brown (Yellow) H Urine Clarity Ex.turbid (Clear) Urine pH 8.0 (5.0-9.0) Urine Specific [place] 1.017 (1.001-1.035) Urine Protein 3+ (Negative) H Urine Ketones Negative (Negative) Urine Blood 3+ /uL (Negative) H Urine Nitrite Negative (Negative) Urine Bilirubin Negative (Negative) Urine Urobilinogen Normal mg/dL (Negative) Urine Leukocyte Esterase 3+ /uL (Negative) Urine RBC 3760 /hpf (0 - 3) Urine WBC Clumps Present /hpf (None Seen) Urine Microscopic WBC 745 /HPF (0-3) H Urine Squamous Epithelial Cells None seen /hpf (<5) Urine Bacteria Few /hpf (None Seen) H Urine Glucose Normal mg/dL (Normal) Microbiology Microbiology Date/Time Source Procedure Growth Status 09/16/24 15:00 Urine - [place] Urine Culture - Preliminary Resulted Labs and/or images reviewed: Labs reviewed by me, Image(s) reviewed by me Assessment/Plan Assessment/Plan Sepsis secondary to urinary tract infection Acute urinary tract infection: Blood cultures urine cultures Invanz Diabetes: Insulin sliding scale Hypertension Hypercholesterolemia BPH Chronic indwelling Colvin Plan discussed with: Patient Date of Service: Sep 17, 2024 Billing Provider: ARPAN LEBLANC MD Common Visit Codes: [id number] CARE 30-74 MIN ARPAN LEBLANC MD Sep 17, 2024 13:41
[2024-09-17] MEDS: cefTRIAXone 1GM/50ML D5W 50 ML IV ONE (13:54)
[2024-09-17 19:55] VITALS: PULSE 99; RESP 17; O2SAT 94
[2024-09-17 22:00] VITALS: PULSE 99; RESP 20; O2SAT 2
[2024-09-17] MEDS ORDERED: METO5TAB2 PO (22:10)
[2024-09-17] MEDS ORDERED: NIFE90TA75 PO (22:10)
[2024-09-17 22:28] VITALS: BP 142/75; PULSE 94; RESP 20; TEMP 97.7; O2SAT 99
[2024-09-18] VITALS (7 sets, daily range): BP systolic 108–152; BP diastolic 79–96; PULSE 70–99; RESP 16–19; TEMP 97.5–98; O2SAT 94–98
[2024-09-18] MEDS ORDERED: cefTRIAXone 1GM/50ML D5W 50 ML IV SCH (09:00)
--- NOTE | 2024-09-18 10:19 | DVHPN2 ---
Reviewed: Care Plan, H&P, Labs, Medications, Previous Orders, Radiology Changes from previous H/P or p: No Changes Eyes: No Pain, No Vision change, No Conjunctivae inflammation, No Eyelid inflammation, No Other, No Redness ENT: No Ear pain, No Ear discharge, No Nose pain, No Nose discharge, No Nose congestion, No Mouth pain, No Mouth swelling, No Throat pain, No Throat swelling, No Other Cardiovascular: No Chest Pain, No Palpitations, No Orthopnea, No Paroxysmal Noc. Dyspnea, No Edema, No Lt Headedness, No Other Respiratory: No Cough, No Dry, No Shortness of breath, No SOB with excertion, No Wheezing, No Hemoptysis, No Pleuritic Pain, No Sputum, No Other Gastrointestinal: No Nausea, No Vomiting, No Abdominal Pain, No Diarrhea, No Constipation, No Melena, No Hematochezia, No Other Genitourinary: Retention Musculoskeletal: No other, No neck pain, No shoulder pain, No arm pain, No back pain, No hand pain, No leg pain, No foot pain Skin: No Rash, No Lesions, No Jaundice, No Bruising, No Other Objective Vitals Vital Signs Date Time Temp Pulse Resp B/P (MAP) Pulse Ox O2 Delivery O2 Flow Rate FiO2 09/18/24 08:31 98.0 89 18 108/79 (89) 98 98.0 09/17/24 22:00 Nasal Cannula* 2 28 Intake/Output Intake and Output 09/18/24 07:00 Intake Total 600 ml Output Total 1000 ml Balance -400 ml Intake Oral 500 ml IV Total 100 ml Output Urine Total 1000 ml Medications Current Medications Medications Dose Ordered Sig/Monet Route Start Time Stop Time Status Last Admin Dose Admin Atorvastatin Calcium 20 mg HS PO 09/16/24 22:00 09/17/24 22:28 20 MG Apixaban 2.5 mg BID PO 09/16/24 22:00 09/17/24 22:28 2.5 MG Amlodipine Besylate 10 mg DAILY PO 09/17/24 10:00 09/17/24 11:16 10 MG Finasteride 5 mg DAILY PO 09/17/24 10:00 09/17/24 11:15 5 MG Metoprolol Tartrate 25 mg BID PO 09/16/24 22:00 09/17/24 22:28 25 MG Patient Own Medication 1 grams DAILY IV 09/17/24 10:00 UNV Ondansetron HCl 4 mg Q4HP PRN IV 09/16/24 18:45 Acetaminophen 650 mg Q6HP PRN PO 09/16/24 18:45 Diagnostic Test (Pha) 1 strip ACHS 09/16/24 22:00 09/18/24 06:35 1 STRIP Insulin Human Regular ACHS SC 09/16/24 22:00 09/18/24 06:40 2 UNITS Dextrose 50 ml UD PRN IV 09/16/24 18:45 Ertapenem 1 gm/ Sodium Chloride 50 ml @ 100 mls/hr DAILY@1800 IV 09/16/24 20:00 09/17/24 17:48 100 MLS/HR Nitroglycerin 0.4 mg Q5MINP PRN SL 09/16/24 22:15 Morphine Sulfate 2 mg Q30M PRN IV 09/16/24 22:15 Ceftriaxone Sodium 50 ml @ 100 mls/hr DAILY@09 IV 09/18/24 09:00 Hold Laboratory Results Laboratory Tests 09/17/24 05:43 Urinalysis Test 09/16/24 15:00 Urine Color Brown (Yellow) H Urine Clarity Ex.turbid (Clear) Urine pH 8.0 (5.0-9.0) Urine Specific [place] 1.017 (1.001-1.035) Urine Protein 3+ (Negative) H Urine Ketones Negative (Negative) Urine Blood 3+ /uL (Negative) H Urine Nitrite Negative (Negative) Urine Bilirubin Negative (Negative) Urine Urobilinogen Normal mg/dL (Negative) Urine Leukocyte Esterase 3+ /uL (Negative) Urine RBC 3760 /hpf (0 - 3) Urine WBC Clumps Present /hpf (None Seen) Urine Microscopic WBC 745 /HPF (0-3) H Urine Squamous Epithelial Cells None seen /hpf (<5) Urine Bacteria Few /hpf (None Seen) H Urine Glucose Normal mg/dL (Normal) Microbiology Microbiology Date/Time Source Procedure Growth Status 09/16/24 15:00 Urine - [place] Urine Culture - Preliminary Resulted Labs and/or images reviewed: Labs reviewed by me, Image(s) reviewed by me Assessment/Plan Assessment/Plan Sepsis secondary to urinary tract infection Acute urinary tract infection: Blood cultures pending, urine cultures growing Gram-negative rods, continue Invanz until culture results Diabetes: Insulin sliding scale Hypertension Hypercholesterolemia BPH Chronic indwelling Colvin Bedridden for last four years Recent admission at [facility] for eight days on 07-15-24, reason unknown Patient's lives in [place]. Amy [phone] at bedside, son Curt who lives in [place], also at bed side Plan discussed with: Patient My Orders Orders - ARPAN LEBLANC MD Procedure Category Date Status Time Ceftriaxone 1gm/50ml PHA 09/18/24 In Process D5w (Rocephin) 09:00 Ct Ab Pel Wo Con-No CT 09/18/24 Verified Oral Or Iv 09:59 Date of Service: Sep 18, 2024 Billing Provider: ARPAN LEBLANC MD Common Visit Codes: [id number] CARE 30-74 MIN ARPAN LEBLANC MD Sep 18, 2024 10:19
--- NOTE | 2024-09-18 11:01 | DVH ---
CT HEAD WITHOUT CONTRAST Indication: Altered mental status EXAM DATE: 09/18/2024 10:28 AM COMPARISON: None TECHNIQUE: CT of the head without intravenous contrast. RADIATION DOSE: CTDIvol: 63.64 mGy, DLP: 1142.5 mGy*cm FINDINGS: There is no intracranial hemorrhage. There is no extra-axial fluid, mass, mass effect or midline shif t. The ventricles are midline and normal in size. Basilar cisterns are patent. There are moderate per iventricular and subcortical white matter chronic microvascular ischemic changes. Moderate global ce rebral volume loss. Old bilateral basal ganglia lacunar infarcts. The paranasal sinuses and mastoids are well-pneumatized. Imaged portion of the orbits are unremarkabl e. IMPRESSION: 1. No intracranial hemorrhage or mass effect. 2. Moderate chronic microvascular ischemic changes. 3. Moderate global cerebral volume loss.
--- NOTE | 2024-09-18 13:03 | DVH ---
Indication: Sepsis with urinary tract infection Technique: CT axial images of the abdomen and pelvis are obtained without contrast. Coronal and sagit jed reformats were obtained. Radiation Dose Information: CTDI volume is 26.33 mGy. Dose-length product is 1608.36 mGy*cm Comparison: CT CT AB PEL WO CON-NO ORAL OR IV on DOS: 02/27/24, CT ABD PELVIS WO CONTRAST on DOS: 03/17/22 FINDINGS: There is limited interpretation of the abdomen and pelvis without administration of intravenous contr ast. The lung bases demonstrate atelectasis. Adrenal gglands unremarkable in shape. Hypodense splenic lesion measuring 2 cm. Pancreatic calcifications and parenchymal atrophy. Right he patic lobe hypodensity measuring 2 cm. Hepatic cysts present. No CT evidence for cholelithiasis. [id number] left hydroureteronephrosis. Nonobstructing left renal pelvic calculus measuring 3 mm . Mild right hydroureteronephrosis. Stomach is partially distended. Small bowel loops are normal in caliber. Postsurgical changes sigmoid colon. Colonic diverticular disease. Right abdominal ileostomy. Rectal wall thickening with surrounding stranding. Presacral edema. Aortic atherosclerotic disease. Diffuse bladder wall thickening and irregularity. Colvin catheter. Prostate enlarged measuring 6.7 cm transversely. Moderate thoracolumbar degenerative disc disease. IMPRESSION: 1. Bladder wall thickening with surrounding stranding. Differential considerations include cystitis, neurogenic bladder, outlet obstruction. 2. Prostatomegaly. Correlate with PSA levels. 3. Ojsg-io-bsicqsdp left and mild right hydroureteronephrosis secondary to the underlying bladder pro cess. 4. Indeterminate right hepatic lobe hypodense lesion measuring 2 cm and Splenic hypodense lesion mil uring 2 cm. Recommend multiphasic MRI abdomen with and without contrast. 5. Sequela of chronic pancreatitis. 6. Right ileostomy. 7. Rectal wall thickening with surrounding stranding. Correlate for proctocolitis. 8. Other findings as described.
[2024-09-18] MEDS: SODIUM CHLORIDE 0.9% 1,000 ML IV SCH (14:00)
--- NOTE | 2024-09-18 15:23 | DVHINCON2 ---
Date of Service if different f: Sep 18, 2024 Consultation ([place]) Labs Laboratory Tests Test 09/16/24 15:00 09/16/24 19:09 09/17/24 05:43 09/18/24 10:52 Urine Color Brown (Yellow) Urine Clarity Ex.turbid (Clear) Urine pH 8.0 (5.0-9.0) Urine Specific [place] 1.017 (1.001-1.035) Urine Protein 3+ (Negative) Urine Ketones Negative (Negative) Urine Blood 3+ /uL (Negative) Urine Nitrite Negative (Negative) Urine Bilirubin Negative (Negative) Urine Urobilinogen Normal mg/dL (Negative) Urine Leukocyte Esterase 3+ /uL (Negative) Urine RBC 3760 /hpf (0 - 3) Urine WBC Clumps Present /hpf (None Seen) Urine Microscopic WBC 745 /HPF (0-3) Urine Squamous Epithelial Cells None seen /hpf (<5) Urine Bacteria Few /hpf (None Seen) Urine Glucose Normal mg/dL (Normal) Lactic Acid Level 1.6 mmol/L (0.4-2.0) White Blood Count 7.7 10^3/uL (4.4-10.8) Red Blood Count 5.12 10^6/uL (4.5-5.90) Hemoglobin 15.7 g/dL (13.5-17.5) Hematocrit 44.5 % (41.0-53.0) Mean Corpuscular Volume 87.0 fL (80.0-100.0) Mean Corpuscular Hemoglobin 30.7 pg (28.0-32.0) Mean Corpuscular Hemoglobin Concent 35.2 g/dL (32.0-36.0) Red Cell Distribution Width 14.1 % (11.8-14.3) Platelet Count 193 10^3/uL (140-450) Mean Platelet Volume 8.3 fL (6.9-10.8) Neutrophils (%) (Auto) 69.8 % (37.0-80.0) Lymphocytes (%) (Auto) 17.0 % (10.0-50.0) Monocytes (%) (Auto) 10.8 % (0.0-12.0) Eosinophils (%) (Auto) 1.7 % (0.0-7.0) Basophils (%) (Auto) 0.7 % (0.0-2.0) Neutrophils # (Auto) 5.4 10 ^3/uL (1.6-8.6) Lymphocytes # (Auto) 1.3 10 ^3/uL (0.4-5.4) Monocytes # (Auto) 0.8 10 ^3/uL (0-1.3) Eosinophils # (Auto) 0.1 10 ^3/uL (0-0.8) Basophils # (Auto) 0.1 10 ^3/uL (0-0.2) Nucleated Red Blood Cells 0.4 % Sodium Level 138 mmol/L (136-145) Potassium Level 4.0 mmol/L (3.5-5.1) Chloride Level 106 mmol/L (98-107) Carbon Dioxide Level 22 mmol/L (20-31) Anion Gap 10 (5-15) Blood Urea Nitrogen 27 mg/dL (9-23) Creatinine 1.55 mg/dL (0.700-1.30) Glomerular Filtration Rate Calc 45 mL/min (>90) BUN/Creatinine Ratio 17.4 (10.0-20.0) Serum Glucose 119 mg/dL (74-106) Calcium Level 9.1 mg/dL (8.7-10.4) Bedside Glucose 176 mg/dl (70-106) Microbiology Date/Time Source Procedure Growth Status 09/17/24 12:46 Blood Blood Culture - Preliminary NO GROWTH AFTER 24 HOURS OF INCUBATION. Resulted 09/16/24 15:00 Urine - [place] Urine Culture - Final Proteus mirabilis Morganella morganii Complete Appetite: Good Appearance: Stated age, Groomed, Clean Psychomotor activity: WNL Behavioral: Cooperative Eye contact: Appropriate Speech: WNL Affect: Restricted Mood: Euthymic Thought processes: Linear/Goal-directed Thought content: WNL Suicidal ideations: Absent Homicidal ideations: Absent Orientation: Person, Place, Time, Situation Memory intact: Recent Intellect: Average Abstractability: WNL Concentration: Adequate Attention: Adequate Judgement: WNL Insight: Fair Vitals Vital Signs Date Time Temp Pulse Resp B/P (MAP) Pulse Ox O2 Delivery O2 Flow Rate FiO2 09/18/24 13:00 97.8 87 16 132/96 (108) 98 97.8 09/18/24 08:00 Nasal Cannula* 2 28 Current medications Current Medications Medications Dose Ordered Sig/Monet Route Start Time Stop Time Status Last Admin Dose Admin Atorvastatin Calcium 20 mg HS PO 09/16/24 22:00 09/17/24 22:28 20 MG Apixaban 2.5 mg BID PO 09/16/24 22:00 09/18/24 10:31 2.5 MG Amlodipine Besylate 10 mg DAILY PO 09/17/24 10:00 09/18/24 10:31 10 MG Finasteride 5 mg DAILY PO 09/17/24 10:00 09/18/24 10:31 5 MG Metoprolol Tartrate 25 mg BID PO 09/16/24 22:00 09/18/24 10:32 25 MG Patient Own Medication 1 grams DAILY IV 09/17/24 10:00 UNV Ondansetron HCl 4 mg Q4HP PRN IV 09/16/24 18:45 Acetaminophen 650 mg Q6HP PRN PO 09/16/24 18:45 Diagnostic Test (Pha) 1 strip ACHS 09/16/24 22:00 09/18/24 11:17 1 STRIP Insulin Human Regular ACHS SC 09/16/24 22:00 09/18/24 11:18 3 UNITS Dextrose 50 ml UD PRN IV 09/16/24 18:45 Ertapenem 1 gm/ Sodium Chloride 50 ml @ 100 mls/hr DAILY@1800 IV 09/16/24 20:00 09/17/24 17:48 100 MLS/HR Nitroglycerin 0.4 mg Q5MINP PRN SL 09/16/24 22:15 Morphine Sulfate 2 mg Q30M PRN IV 09/16/24 22:15 Ceftriaxone Sodium 50 ml @ 100 mls/hr DAILY@09 IV 09/18/24 09:00 Hold Sodium Chloride 1,000 ml @ 125 mls/hr Q8H IV 09/18/24 14:00 Treatment plan discussed: With staff Medication adjusted: Yes Diagnosis: unspecified mood disorder Plan : This is a 79-year-old male here for urinary complaints. Patient presently denies any mood symptoms. He denies suicidal/homicidal ideation continue to monitor and contact psychiatry team as needed. Patient may discharge after medical clearance. History of Present Illness Reason for Consult : reports from for low moods HPI : This is a 79-year-old male with no known prior psychiatric history, here for low urine output. Patient is evaluated via telepsychiatry. Patient reports mood as "great." He denies any mental health concerns at this time. He reports appetite and sleep are good. He denies low moods, anhedonia or thoughts of hopelessness. He reports enjoying watching TV and show called "gun smoke" as he cannot walk around. He is able report reason for hospitalization here. He denies any problems with memory. He does appear slow to respond. He reports goal is to "stay happy." He denies suicidal/homicidal ideation. he denies auditory/visual hallucinations or paranoid thoughts. Called , Amy [phone]. She denies reporting patient had depressed mood. She has not noticed any problems with moods at home. She reports patient is bedbound x4 years after having bad sepsis and frequent falls prior to this. Past Psychiatric History : He denies prior psychiatric diagnoses, 5150holds, psychiatric admissions or suicide attempts. He denies hx of psychotropic medications Past Medical History : per chart review, hx of diabetes, HTN, a-fib and HLD Social History : He lives with . No known history substance use. He denies any known family history. He reports service in the [employer], 1959'. SONALI HOLM [facility] Sep 18, 2024 15:23
[2024-09-18] MEDS: cefTRIAXone 1GM/50ML D5W 50 ML IV SCH (15:55)
[2024-09-19 01:00] VITALS: BP 152/92; PULSE 83; RESP 17; TEMP 97.6; O2SAT 96
[2024-09-19 05:00] VITALS: BP 129/96; PULSE 81; RESP 18; TEMP 97.4; O2SAT 97
[2024-09-19 08:51] VITALS: BP 137/96; PULSE 84; RESP 18; TEMP 97.8; O2SAT 96
[2024-09-19 13:00] VITALS: BP 134/94; PULSE 80; RESP 18; TEMP 98.1; O2SAT 96
[2024-09-19 16:54] VITALS: BP 139/92; PULSE 84; RESP 18; TEMP 98; O2SAT 96
[2024-09-19 21:00] VITALS: BP 142/97; PULSE 73; RESP 17; TEMP 97.5; O2SAT 97
[2024-09-20] VITALS (7 sets, daily range): BP systolic 135–145; BP diastolic 85–100; PULSE 74–78; RESP 17–19; TEMP 97.4–98.2; O2SAT 96–98
--- NOTE | 2024-09-20 15:27 | DVHPN2 ---
Subjective Patient is denying any dysuria fevers chills. Chronically bed-bound for years. Reviewed: Care Plan, H&P, Labs, Medications, Previous Orders, Radiology Changes from previous H/P or p: No Changes Eyes: No Pain, No Vision change, No Conjunctivae inflammation, No Eyelid inflammation, No Other, No Redness ENT: No Ear pain, No Ear discharge, No Nose pain, No Nose discharge, No Nose congestion, No Mouth pain, No Mouth swelling, No Throat pain, No Throat swelling, No Other Cardiovascular: No Chest Pain, No Palpitations, No Orthopnea, No Paroxysmal Noc. Dyspnea, No Edema, No Lt Headedness, No Other Respiratory: No Cough, No Dry, No Shortness of breath, No SOB with excertion, No Wheezing, No Hemoptysis, No Pleuritic Pain, No Sputum, No Other Gastrointestinal: No Nausea, No Vomiting, No Abdominal Pain, No Diarrhea, No Constipation, No Melena, No Hematochezia, No Other Genitourinary: Retention Musculoskeletal: No other, No neck pain, No shoulder pain, No arm pain, No back pain, No hand pain, No leg pain, No foot pain Skin: No Rash, No Lesions, No Jaundice, No Bruising, No Other Objective Vitals Vital Signs Date Time Temp Pulse Resp B/P (MAP) Pulse Ox O2 Delivery O2 Flow Rate FiO2 09/20/24 13:30 98.2 76 18 140/89 (106) 97 98.2 09/20/24 07:30 Nasal Cannula* 2 28 Intake/Output Intake and Output 09/20/24 07:00 Intake Total 1950 ml Output Total 3125 ml Balance -1175 ml Intake Oral 1950 ml Output Urine Total 2775 ml Stool Total 350 ml Exam HEENT pupils are reactive Neck is supple CV is S1-S2 regular rate and rhythm Respiratory are clear GI positive bowel sound Extremity no edema MAKER UP FOLDING no motor deficit Medications Current Medications Medications Dose Ordered Sig/Monet Route Start Time Stop Time Status Last Admin Dose Admin Atorvastatin Calcium 20 mg HS PO 09/16/24 22:00 09/19/24 22:42 20 MG Apixaban 2.5 mg BID PO 09/16/24 22:00 09/20/24 08:39 2.5 MG Amlodipine Besylate 10 mg DAILY PO 09/17/24 10:00 09/20/24 08:39 10 MG Finasteride 5 mg DAILY PO 09/17/24 10:00 09/20/24 08:38 5 MG Metoprolol Tartrate 25 mg BID PO 09/16/24 22:00 09/20/24 08:39 25 MG Patient Own Medication 1 grams DAILY IV 09/17/24 10:00 UNV Ondansetron HCl 4 mg Q4HP PRN IV 09/16/24 18:45 Acetaminophen 650 mg Q6HP PRN PO 09/16/24 18:45 Diagnostic Test (Pha) 1 strip ACHS 09/16/24 22:00 09/20/24 11:43 1 STRIP Insulin Human Regular ACHS SC 09/16/24 22:00 09/20/24 12:19 3 UNITS Dextrose 50 ml UD PRN IV 09/16/24 18:45 Nitroglycerin 0.4 mg Q5MINP PRN SL 09/16/24 22:15 Morphine Sulfate 2 mg Q30M PRN IV 09/16/24 22:15 Sodium Chloride 1,000 ml @ 125 mls/hr Q8H IV 09/18/24 14:00 09/20/24 02:54 125 MLS/HR Ceftriaxone Sodium 50 ml @ 100 mls/hr DAILY@09 IV 09/18/24 14:15 09/20/24 08:34 100 MLS/HR Laboratory Results Laboratory Tests 09/17/24 05:43 Urinalysis Test 09/16/24 15:00 Urine Color Brown (Yellow) H Urine Clarity Ex.turbid (Clear) Urine pH 8.0 (5.0-9.0) Urine Specific [place] 1.017 (1.001-1.035) Urine Protein 3+ (Negative) H Urine Ketones Negative (Negative) Urine Blood 3+ /uL (Negative) H Urine Nitrite Negative (Negative) Urine Bilirubin Negative (Negative) Urine Urobilinogen Normal mg/dL (Negative) Urine Leukocyte Esterase 3+ /uL (Negative) Urine RBC 3760 /hpf (0 - 3) Urine WBC Clumps Present /hpf (None Seen) Urine Microscopic WBC 745 /HPF (0-3) H Urine Squamous Epithelial Cells None seen /hpf (<5) Urine Bacteria Few /hpf (None Seen) H Urine Glucose Normal mg/dL (Normal) Microbiology Microbiology Date/Time Source Procedure Growth Status 09/17/24 12:46 Blood Blood Culture - Preliminary NO GROWTH AFTER 72 HOURS OF INCUBATION. Resulted 09/16/24 15:00 Urine - [place] Urine Culture - Final Proteus mirabilis Morganella morganii Complete Assessment/Plan Assessment/Plan 79-year-old male with a known history of BPH, chronic indwelling Colvin catheter, chronic bed-bound status for years presented to the hospital with a malfunctioning Colvin catheter found to have 1. Malfunctioning Colvin catheter status post replacement 2. Urinary tract infection 3. Diabetes mellitus type 2 4. hypertension 5. BPH 6. Chronic indwelling Colvin catheter status post replacement 7. Chronic bed-bound status. -IV antibiotics, physical therapy evaluation and treatment, discharge plan. Plan discussed with: Patient My Orders Orders - JESIKA BONNER MD Procedure Category Date Status Time Discharge DISCHARGE 09/19/24 Transmitted 16:48 * [employer] CONS 09/19/24 Transmitted Consult 16:49 Date of Service: Sep 19, 2024 Billing Provider: JESIKA BONNER MD Common Visit Codes: NOT BILLABLE JESIKA BONNER MD Sep 20, 2024 15:27
[2024-09-20] MEDS ORDERED: CEPH500C PO (15:28)
--- NOTE | 2024-09-20 15:30 | DVHDS2 ---
Discharge Summary Date of Admission Sep 16, 2024 at 18:18 Date of Discharge: Sep 19, 2024 Labs/Diagnostic Data: Laboratory Results Test 09/20/24 11:25 09/17/24 05:43 09/16/24 19:09 09/16/24 15:00 POC Glucose 168 mg/dl (70-106) White Blood Count 7.7 10^3/uL (4.4-10.8) Red Blood Count 5.12 10^6/uL (4.5-5.90) Hemoglobin 15.7 g/dL (13.5-17.5) Hematocrit 44.5 % (41.0-53.0) Mean Corpuscular Volume 87.0 fL (80.0-100.0) Mean Corpuscular Hemoglobin 30.7 pg (28.0-32.0) Mean Corpuscular Hemoglobin Concent 35.2 g/dL (32.0-36.0) Red Cell Distribution Width 14.1 % (11.8-14.3) Platelet Count 193 10^3/uL (140-450) Mean Platelet Volume 8.3 fL (6.9-10.8) Neutrophils (%) (Auto) 69.8 % (37.0-80.0) Lymphocytes (%) (Auto) 17.0 % (10.0-50.0) Monocytes (%) (Auto) 10.8 % (0.0-12.0) Eosinophils (%) (Auto) 1.7 % (0.0-7.0) Basophils (%) (Auto) 0.7 % (0.0-2.0) Neutrophils # (Auto) 5.4 10 ^3/uL (1.6-8.6) Lymphocytes # (Auto) 1.3 10 ^3/uL (0.4-5.4) Monocytes # (Auto) 0.8 10 ^3/uL (0-1.3) Eosinophils # (Auto) 0.1 10 ^3/uL (0-0.8) Basophils # (Auto) 0.1 10 ^3/uL (0-0.2) Nucleated Red Blood Cells 0.4 % Sodium Level 138 mmol/L (136-145) Potassium Level 4.0 mmol/L (3.5-5.1) Chloride Level 106 mmol/L (98-107) Carbon Dioxide Level 22 mmol/L (20-31) Anion Gap 10 (5-15) Blood Urea Nitrogen 27 mg/dL (9-23) Creatinine 1.55 mg/dL (0.700-1.30) Glomerular Filtration Rate Calc 45 mL/min (>90) BUN/Creatinine Ratio 17.4 (10.0-20.0) Serum Glucose 119 mg/dL (74-106) Calcium Level 9.1 mg/dL (8.7-10.4) Lactic Acid Level 1.6 mmol/L (0.4-2.0) Urine Color Brown (Yellow) Urine Clarity Ex.turbid (Clear) Urine pH 8.0 (5.0-9.0) Urine Specific [place] 1.017 (1.001-1.035) Urine Protein 3+ (Negative) Urine Ketones Negative (Negative) Urine Blood 3+ /uL (Negative) Urine Nitrite Negative (Negative) Urine Bilirubin Negative (Negative) Urine Urobilinogen Normal mg/dL (Negative) Urine Leukocyte Esterase 3+ /uL (Negative) Urine RBC 3760 /hpf (0 - 3) Urine WBC Clumps Present /hpf (None Seen) Urine Microscopic WBC 745 /HPF (0-3) Urine Squamous Epithelial Cells None seen /hpf (<5) Urine Bacteria Few /hpf (None Seen) Urine Glucose Normal mg/dL (Normal) Other Laboratory Tests 09/17/24 05:43 Brief Hx & Hospital Course: 79-year-old male with a known history of BPH, chronic indwelling Colvin catheter, chronic bed-bound status for years presented to the hospital with a malfunctioning Colvin catheter found to have malfunctioning Colvin catheter status post replacement. Patient was found to have UTI started on IV antibiotics. Patient does have known history of chronic indwelling Colvin catheter with a BPH history. Patient is also take Eliquis for questionable AFib. Patient is being discharged under stable condition on p.o. antibiotics. Home health home safety evaluation arrangement as an outpatient as per psych social worker. Condition at Discharge: Stable Final Diagnosis/Problems List Complicated UTI Diabetes: Insulin sliding scale Hypertension Paroxysmal AFib currently on Eliquis and beta john BPH Chronic indwelling Colvin Discharge Disposition: Home with Health Services SNF Discharge Will this Physician continue t: No Discharge Instruct/Medications Diet: Cardiac 2g Na,low cholest Diet comment: 1999 ADA diet Activity: See Comment Activity comment: Activity as tolerated. Follow Up/Referral: Follow up with the PCP in 1-2 weeks Medications: Resume medication as reconciled and prescribed Discharge Statement: "Patient was advised to return to the ER or call 911 if any headaches, dizziness, shortness of breath, chest pain, abdominal pain, bleeding, fevers, or worsening of medical condition. Patient was counseled about treatment plan, medications, possible side effects, patientverbalized understanding. All questions were answered to the best of my ability. This discharge took greater then 30 minutes in planning, reviewing documentation, counseling the patient, and discussing with other team members." ASSESSMENT ASSESSMENT Assessment Complicated UTI Diabetes: Insulin sliding scale Hypertension Paroxysmal AFib currently on Eliquis and beta john BPH Chronic indwelling Colvin Date of Service: Sep 20, 2024 Billing Provider: JESIKA BONNER MD Common Visit Codes: NOT BILLABLE JESIKA BONNER MD Sep 20, 2024 15:30
== END 2024-09-20 18:05 | disposition home or self-care (01) | DRG 871 ==
LOC: EDBD 12:43 → ER 12:46 → OVERFLOW 18:18 → WEST WING 09-17 21:20
PROVIDERS: ADMIT Internal Medicine; ATTEND Internal Medicine
DX: A41.9 Sepsis, unspecified organism (principal); G93.41 Metabolic encephalopathy; N39.0 Urinary tract infection, site not specified; N17.9 Acute kidney failure, unspecified; E78.00 Pure hypercholesterolemia, unspecified; I10 Essential (primary) hypertension; N40.0 Benign prostatic hyperplasia without lower urinary tract symptoms; I48.0 Paroxysmal atrial fibrillation; F39 Unspecified mood [affective] disorder; Z74.01 Bed confinement status; T83.018A Breakdown (mechanical) of other urinary catheter, initial encounter; R29.6 Repeated falls; E11.9 Type 2 diabetes mellitus without complications; Z79.2 Long term (current) use of antibiotics; Z79.899 Other long term (current) drug therapy; Z79.84 Long term (current) use of oral hypoglycemic drugs; Z79.01 Long term (current) use of anticoagulants; Z90.49 Acquired absence of other specified parts of digestive tract; Y84.8 Other medical procedures as the cause of abnormal reaction of the patient, or of later complication, without mention of misadventure at the time of the procedure; Y92.89 Other specified places as the place of occurrence of the external cause
CPT/HCPCS: 36415; 70450; 74176; 80048; 81001; 82962; 83605; 85025; 87040; 87086; 87088; 87186; 96365; 97163; G0378; J1335; J1815; J3490